=== PATIENT | male | born 1945 | race Caucasian/White ===

== ENCOUNTER 2016-09-29 17:37 | Emergency (ER) | payer OTHER ==
[~2016-09-29] VITALS: Ht 172.7 cm; Wt 75.0 kg
[2016-09-29 17:38] VITALS: BP 212/93; PULSE 84; RESP 20; TEMP 98.2; O2SAT 98
--- NOTE | 2016-09-29 17:45 | PD ---
Physical Exam Date Seen by Provider: Sep 29, 2016 Time Seen by Provider: 17:43 Narrative 71 yo male here for lower back pain. Progressively worst. Today is the worst. Has had it for "forever". Cannot ambulate now without worsening pain. No recent injury. pain is 10/10. Vitals are stable in triage. Awaiting bed placement. Data Data Last Documented VS Vital Signs Date Time Temp Pulse Resp B/P Pulse Ox O2 Delivery O2 Flow Rate FiO2 09/29/16 17:38 98.2 84 20 212/93 98 Room Air [facility] Medical Record Reviewed: Yes Supervised Visit with CLEVE: No Tobi Moore Sep 29, 2016 17:44
[2016-09-29 17:57] VITALS: BP 199/90; PULSE 78; RESP 20; O2SAT 98
[2016-09-29] MEDS ORDERED: PRIN20TA2 PO (17:57)
[2016-09-29] MEDS ORDERED: AMLO10TA2 PO (17:57)
[2016-09-29] MEDS ORDERED: DOCU100C PO (17:57)
[2016-09-29] MEDS ORDERED: MELO-1 PO (17:57)
[2016-09-29] MEDS ORDERED: HYDR25TA5 PO (17:57)
[2016-09-29] MEDS ORDERED: SERT-129 PO (17:57)
[2016-09-29] MEDS ORDERED: TRAM50TA PO (17:57)
[2016-09-29] MEDS ORDERED: ASPI81CH CHEW (17:57)
[2016-09-29] MEDS ORDERED: TRAZ100T6 PO (17:57)
[2016-09-29] MEDS ORDERED: HYDR-3516 PO (17:57)
[2016-09-29] MEDS ORDERED: PRAV40TA2 PO (17:57)
[2016-09-29] MEDS ORDERED: BACL10TA PO (17:57)
[2016-09-29] MEDS ORDERED: cloNIDine HCL 0.2 MG TAB PO ONE (18:00)
[2016-09-29] MEDS ORDERED: KETOROLAC TROMETHAMINE 60 MG/2 ML (IM) VIAL IM ONE (18:00)
[2016-09-29] MEDS ORDERED: ONDANSETRON HCL 4 MG/2 ML VIAL IM ONE (18:00)
[2016-09-29] MEDS ORDERED: MORPHINE SULFATE 4 MG/ML INJ IM ONE (18:00)
--- NOTE | 2016-09-29 18:23 | PD ---
HPI Chief Complaint: Back/ Neck Pain or Injury Time Seen by Provider: 17:49 Travel History International Travel<30 days: No Contact w/Intl Traveler<30days: No Traveled to known affect area: No History of Present Illness HPI This patient complains of back pain. Had chronic back pain for years. He takes hydrocodone amongst other things for the back. No acute injury. Back has been hurting more than usual. He is extremely vague and difficult historian. No fever. No urinary complaints or neurologic complaints. No sciatic radiation. Symptoms severity is moderate. He has not been taking his antihypertensives. Blood pressure 212 systolic. Pain medicine partially relieves his symptoms. PFSH Past Medical History Medical History: Denies Significant Hx Immunizations Current: Yes Tetanus Vaccination: > 5 Years Influenza Vaccination: Yes Past Surgical History Appendectomy: Yes Other Surgery: Yes (penile implant) Social History Alcohol Use: No Tobacco Use: No Substance Use: No Allergies-Medications (Allergen,Severity, Reaction): Coded Allergies: No Known Allergies (Unverified , 09/29/16) Reported Meds & Prescriptions Reported Meds & Active Scripts Active Reported Hydrocodone-Acetaminophen 5-325 mg Tab 1 Tab PO Q6H PRN Tramadol (Tramadol HCl) 50 Mg Tab 50 Mg PO Q8H PRN Hydrochlorothiazide 25 Mg Tab 25 Mg PO DAILY Trazodone (Trazodone HCl) 100 Mg Tablet 100 Mg PO HS Amlodipine (Amlodipine Besylate) 10 Mg Tab 10 Mg PO DAILY Prinivil (Lisinopril) 20 Mg Tab 40 Mg PO DAILY Pravastatin 40 Mg Tab 40 Mg PO DAILY Docusate Sodium 100 Mg Cap 100 Mg PO BID Aspirin 81 Mg Chew 81 Mg CHEW DAILY Sertraline (Sertraline HCl) 100 Mg Tab 100 Mg PO DAILY Meloxicam 15 Mg Tab 15 Mg PO DAILY Baclofen 10 Mg Tab 10 Mg PO TID Review of Systems General / Constitutional: No: Fever Eyes: No: Visual changes HENT: No: Headaches Cardiovascular: No: Chest Pain or Discomfort Respiratory: No: Shortness of Breath Gastrointestinal: No: Abdominal Pain Genitourinary: No: Dysuria Musculoskeletal: Positive: Pain Skin: No Rash Neurologic: No: Weakness Psychiatric: No: Depression Endocrine: No: Polydipsia Hematologic/Lymphatic: No: Easy Bruising Physical Exam Narrative GENERAL: Well-nourished, well-developed patient in no apparent distress. SKIN: Focused skin assessment reveals no rash and nodules. Skin is Warm and dry. HEAD: Atraumatic. Normocephalic. EYES: Pupils equal and round. No scleral icterus. No injection or drainage. ENT: No nasal bleeding or discharge. Mucous membranes pink and moist. NECK: Trachea midline. No JVD. CARDIOVASCULAR: Regular rate and rhythm. No murmur appreciated. RESPIRATORY: No accessory muscle use. Clear to auscultation. Breath sounds equal bilaterally. GASTROINTESTINAL: Abdomen soft, non-tender, nondistended. Hepatic and splenic margins not palpable. MUSCULOSKELETAL: No obvious deformities. No clubbing. No cyanosis. No edema. Back exam shows no midline tenderness NEUROLOGICAL: Awake and alert. No obvious cranial nerve deficits. Motor grossly within normal limits. Normal speech. PSYCHIATRIC: Appropriate mood and affect; insight and judgment seems a bit weak . Data Data Last Documented VS Vital Signs Date Time Temp Pulse Resp B/P Pulse Ox O2 Delivery O2 Flow Rate FiO2 09/29/16 19:27 78 20 162/72 98 Room Air 09/29/16 17:38 98.2 Orders Ondansetron Inj (Zofran Inj) (09/29/16 18:00) Ketorolac Inj (Toradol Inj) (09/29/16 18:00) Morphine Inj (Morphine Inj) (09/29/16 18:00) Ct Abd/Pel W/O Iv Contrast (09/29/16 ) Clonidine (Catapres) (09/29/16 18:00) MDM Medical Decision Making Medical Screen Exam Complete: Yes Emergency Medical Condition: Yes Medical Record Reviewed: Yes Differential Diagnosis Exacerbation of chronic back pain, sciatica, disc herniation, AAA Narrative Course I have reviewed the patient's electronic medical record. Patient is neurologically intact. There is no red flags for emergent spine imaging given his presentation but I did order CT of abdomen and pelvis shows no significant AAA. He is a very vague and challenging historian so it's hard to pin down what exactly is going on. It sounds most like a flare of chronic back pain. He's had multiple injections into the back for this from pain management. He denies running out of his pain medicine. CT of abdomen and pelvis shows no aneurysm or stone I gave him a dose of clonidine for accelerated hypertension. Blood pressure now 162/72 on recheck Gave him injection of morphine and Zofran and Toradol He feels improved. He should follow-up with primary care Diagnosis Primary Impression: Back pain at L4-L5 level Additional Impression: Accelerated hypertension Additional Instructions: The patient was advised to follow up with their physician and return if they worsen. Check and record blood pressure daily Be compliant with blood pressure medication Med/Other Pt SpecificInfo: Other Disposition: 01 DISCHARGE HOME Condition: Stable Binh Stout MD Sep 29, 2016 18:23
--- NOTE | 2016-09-29 18:40 | RADRPT ---
EXAM DATE/TIME: 09/29/2016 18:24 [place] COMPARISON: No previous studies available for comparison. INDICATIONS : low back pain past several years. ORAL CONTRAST: No oral contrast ingested. RADIATION DOSE: 7.44 CTDIvol (mGy) MEDICAL HISTORY : None SURGICAL HISTORY : Appendectomy. Penile implant. ENCOUNTER: Initial ACUITY: >1 yr PAIN SCALE: 10/10 LOCATION: low back TECHNIQUE: Volumetric scanning of the abdomen and pelvis was performed. Using automated exposure control and ad justment of the mA and/or kV according to patient size, radiation dose was kept as low as reasonably achievable to obtain optimal diagnostic quality images. DICOM format image data is available electro nically for review and comparison. FINDINGS: LOWER LUNGS: The visualized lower lungs are clear. LIVER: Homogeneous density without lesion. There is no dilation of the biliary tree. No calcified gallston es. SPLEEN: Normal size without lesion. PANCREAS: Within normal limits. KIDNEYS: Normal in size and shape. There is no mass, stone, or hydronephrosis. ADRENAL GLANDS: Within normal limits. VASCULAR: There is no aortic aneurysm. Mild atherosclerotic changes present. BOWEL/MESENTERY: The stomach, small bowel, and colon demonstrate no acute abnormality. There is no free intraperitone al air or fluid. A penile reservoir is noted in the left anterior pelvis. ABDOMINAL WALL: Within normal limits. There are postsurgical changes along the right lateral abdominal wall musculatu re with multiple clips and celeste. There are surgical clips in the lower pelvis. RETROPERITONEUM: There is no lymphadenopathy. BLADDER: No wall thickening or mass. REPRODUCTIVE: Within normal limits. INGUINAL: There is no lymphadenopathy or hernia. MUSCULOSKELETAL: Within normal limits for patient age. CONCLUSION: 1. No renal calculi or obstruction. 2. Postsurgical changes with no definite obstruction or inflammatory change. 3. Mild atherosclerotic change in the aorta with no aneurysm. Bill Dacosta MD on September 29, 2016 at 18:33 Board Certified Radiologist. This report was verified electronically.
[2016-09-29 19:27] VITALS: BP 162/72; PULSE 78; RESP 20; O2SAT 98
== END 2016-09-29 20:03 | disposition home or self-care (01) ==
LOC: NEPD 17:37
DX: M54.5 Low back pain (principal); I10 Essential (primary) hypertension; Z79.899 Other long term (current) drug therapy; Z79.82 Long term (current) use of aspirin
CPT/HCPCS: 74176; 96372; 99285; J1885; J2270; J2405

== ENCOUNTER 2018-01-01 13:50 | Inpatient (IN) ==
[2018-01-01] MEDS ORDERED: Sod Chloride 0.9% Inj 1,000 ML IV.SIG ONE ×2 (13:52→19:00)
--- NOTE | 2018-01-01 13:59 | ED ---
HPI General Chief complaint: Nausea/Vomiting/Diarrhea Stated complaint: Medical Time Seen by Provider: 01/01/18 13:52 Source: patient, EMS and RN notes reviewed Mode of arrival: EMS Limitations: altered mental status History of Present Illness HPI narrative: 72yM brought in by EMS for weakness. The patient was apparently so weak he was unable to get out of bed so he called 911; he was found to be febrile to 101F and confused on their arrival. The patient vomited twice while en route but is unable to provide further meaningful contribution to HPI secondary to AMS. Related Data Home Medications Medication Instructions Recorded Confirmed acetaminophen [Tylenol] 650 mg PO TID 01/01/18 01/01/18 amlodipine 10 mg PO DAILY 01/01/18 01/01/18 aspirin 81 mg PO DAILY 01/01/18 01/01/18 atorvastatin [Lipitor] 40 mg PO HS 01/01/18 01/01/18 baclofen 30 mg PO TID 01/01/18 01/01/18 bupropion HCl 75 mg PO DAILY 01/01/18 01/01/18 clonidine HCl [Catapres] 0.4 mg PO DAILY 01/01/18 01/01/18 cyanocobalamin (vitamin B-12) 1,000 mcg PO DAILY 01/01/18 01/01/18 docusate sodium [Colace] 100 mg PO BID 01/01/18 01/01/18 donepezil [Aricept] 5 mg PO HS 01/01/18 01/01/18 ferrous sulfate 648 mg PO 4XW 01/01/18 01/01/18 gabapentin 300 mg PO DAILY 01/01/18 01/01/18 hydrochlorothiazide 25 mg PO DAILY 01/01/18 01/01/18 lisinopril 40 mg PO DAILY 01/01/18 01/01/18 meloxicam [Mobic] 15 mg PO DAILY 01/01/18 01/01/18 omega 5-pdi-ihp-fish oil [Fish Oil] 2,000 mg PO BID 01/01/18 01/01/18 sertraline [Zoloft] 100 mg PO DAILY 01/01/18 01/01/18 trazodone 150 mg PO HS 01/01/18 01/01/18 Allergies Allergy/AdvReac Type Severity Reaction Status Date / Time No Known Allergies Allergy Verified 01/01/18 14:22 Review of Systems ROS: all other systems reviewed are negative PMFSH History History Provided By: Patient Medical History Medical History HTN (hypertension) (Acute) High cholesterol (Acute) Surgical History Surgical History History of cataract surgery (Acute) Social History Social History Substance History: No History of Abuse Second Hand Smoke Exposure: No Smoking Status: Former smoker How Often Do You Have a Drink Containing Alcohol: Never Recent Travel in [facility] within the Last 8 Weeks: No Recent Out of Country Travel within the Last 8 Weeks: No Exam Const General: ill appearing [facility] Head: normocephalic and atraumatic Face and sinus: normal facial exam Eyes General: appearance normal, both eyes and all related structures Pupils: PERRL Chest Chest: normal inspection of the chest Resp Other: Diminished breath sounds at bases bilaterally Cardio Rate: regular rate Rhythm: regular rhythm GI Other: Soft, mildly distended, non-tender in all quadrants Skin General: no rashes or lesions noted Neuro Other: Awake, oriented to person and place but not time Moving all extremities Pupils 3 mm and reactive bilaterally Psych Affect: normal affect Course Initial Documented Vital Signs Pulse Oximetry 95 01/01/18 13:52 Last Documented Vital Signs Temperature 102.2 F H 01/01/18 18:00 Pulse Rate 78 01/01/18 18:00 Respiratory Rate 15 01/01/18 18:00 Blood Pressure 194/86 H 01/01/18 17:00 Pulse Oximetry 95 01/01/18 18:00 Medical Decision Making [facility] Narrative Medical decision making narrative: Assessment: 72yM presenting with altered mental status, confusion, fever Plan: EKG and monitor IV fluids Sepsis workup, including lactate and cultures CXR CTH UA Addendum: Patient's arrived in the ED during his workup, says that he "hasn 't been feeling well" x several days and this morning was very confused and unable to get out of bed. The patient was found to have pyelonephritis/ urosepsis complicated by a 2 mm obstructing left-sided kidney stone. I explained these results to the patient's as well as plan to keep him in the hospital for IV fluids/ antibiotics/ consultation. Case discussed with Dr. Lyles of [facility] and with Dr. Garcia of urology, who recommends starting Flomax and says the stone is small enough to pass on its own. Medical Screen Exam Complete: Yes Emergency Medical Condition: Yes Differential Diagnosis Differential Diagnosis: Differential diagnosis includes, but is not limited to: pneumonia, UTI, dehydration, electrolyte abnormality, arrhythmia, DKA, ICH, ACS Medical Records Medical records reviewed: Yes I reviewed the patient's medical records. Lab Data Lab results reviewed: Yes I reviewed the patient's lab results. Result diagrams: 01/01/18 14:00 01/01/18 15:28 Lab Results 01/01/18 01/01/18 01/01/18 Range/Units 14:00 14:00 14:05 WBC 10.8 (4.0-11.0) th/mm3 RBC 4.81 (4.50-5.90) mil/mm3 Hgb 14.1 (13.0-17.0) gm/dL Hct 41.2 (39.0-51.0) % MCV 85.5 (80.0-100.0) fL MCH 29.2 (27.0-34.0) pg MCHC 34.2 (32.0-36.0) % RDW 13.8 (11.6-17.2) % Plt Count 110 L (150-450) th/mm3 MPV 7.8 (7.0-11.0) fL Neut % (Auto) 88.3 H (16.0-70.0) % Lymph % (Auto) 4.5 L (9.0-44.0) % [place] % (Auto) 6.1 (0.0-8.0) % Eos % (Auto) 0.0 (0.0-4.0) % Baso % (Auto) 1.1 (0.0-2.0) % Neut # (Auto) 9.6 H (1.8-7.7) th/mm3 Lymph # (Auto) 0.5 L (1.0-4.8) th/mm3 [place] # (Auto) 0.7 (0.0-0.9) th/mm3 Eos # (Auto) 0.0 (0.0-0.4) th/mm3 Baso # (Auto) 0.1 (0.0-0.2) th/mm3 WBC Differential . Differential Comment Auto diff final PT 11.7 H (9.8-11.6) sec INR 1.2 Ratio APTT 26.4 (24.3-30.1) sec Sodium (136-145) meq/L Potassium (3.5-5.1) meq/L Chloride (98-107) meq/L Carbon Dioxide (21.0-32.0) meq/L Anion Gap (5-15) meq/L BUN (7-18) mg/dL Creatinine (0.60-1.30) mg/dL Estimated GFR (>89) mL/min Random Glucose (74-106) mg/dL Lactic Acid 1.8 (0.4-2.0) mmol/L Calcium (8.5-10.1) mg/dL Phosphorus (2.5-4.9) mg/dL Magnesium (1.5-2.5) mg/dL Total Bilirubin (0.2-1.0) mg/dL AST (15-37) U/L ALT (12-78) U/L Alkaline Phosphatase (45-117) U/L Total Creatine Kinase (39-308) U/L CK-MB (CK-2) (0.5-3.6) ng/mL Troponin I (0.02-0.05) ng/mL Total Protein (6.4-8.2) g/dL Albumin (3.4-5.0) g/dL Lipase (73-393) U/L Urine Color (Yellw/Straw) Urine Clarity (Clear) Urine pH (5.0-8.5) Ur Specific [place] (1.002-1.035) Urine Protein (Neg-Trace) mg/dL Urine Glucose (UA) (Negative) mg/dL Urine Ketones (Negative) mg/dL Urine Occult Blood (Negative) Urine Nitrate (Negative) Urine Bilirubin (Negative) Urine Urobilinogen (Less than 2) mg/dL Ur Leukocyte Esterase (Negative) Urine RBC (0-3) /hpf Urine WBC (0-5) /hpf Ur Squamous Epith Cells (0-5) /hpf Amorphous Sediment (None) /hpf Urine Bacteria (None) /hpf Urine Mucus (Occasional) /lpf Micro UA Comment Ur Microscopic Review Urine Culture Comments 01/01/18 01/01/18 Range/Units 15:28 18:20 WBC (4.0-11.0) th/mm3 RBC (4.50-5.90) mil/mm3 Hgb (13.0-17.0) gm/dL Hct (39.0-51.0) % MCV (80.0-100.0) fL MCH (27.0-34.0) pg MCHC (32.0-36.0) % RDW (11.6-17.2) % Plt Count (150-450) th/mm3 MPV (7.0-11.0) fL Neut % (Auto) (16.0-70.0) % Lymph % (Auto) (9.0-44.0) % [place] % (Auto) (0.0-8.0) % Eos % (Auto) (0.0-4.0) % Baso % (Auto) (0.0-2.0) % Neut # (Auto) (1.8-7.7) th/mm3 Lymph # (Auto) (1.0-4.8) th/mm3 [place] # (Auto) (0.0-0.9) th/mm3 Eos # (Auto) (0.0-0.4) th/mm3 Baso # (Auto) (0.0-0.2) th/mm3 WBC Differential Differential Comment PT (9.8-11.6) sec INR Ratio APTT (24.3-30.1) sec Sodium 138 (136-145) meq/L Potassium 3.2 L (3.5-5.1) meq/L Chloride 101 (98-107) meq/L Carbon Dioxide 27.1 (21.0-32.0) meq/L Anion Gap 10 (5-15) meq/L BUN 12 (7-18) mg/dL Creatinine 1.29 (0.60-1.30) mg/dL Estimated GFR 55 L (>89) mL/min Random Glucose 122 H (74-106) mg/dL Lactic Acid (0.4-2.0) mmol/L Calcium 7.8 L (8.5-10.1) mg/dL Phosphorus 1.9 L (2.5-4.9) mg/dL Magnesium 1.7 (1.5-2.5) mg/dL Total Bilirubin 1.1 H (0.2-1.0) mg/dL AST 16 (15-37) U/L ALT 19 (12-78) U/L Alkaline Phosphatase 76 (45-117) U/L Total Creatine Kinase 227 (39-308) U/L CK-MB (CK-2) 1.3 (0.5-3.6) ng/mL Troponin I 0.02 (0.02-0.05) ng/mL Total Protein 7.0 (6.4-8.2) g/dL Albumin 3.1 L (3.4-5.0) g/dL Lipase 54 L (73-393) U/L Urine Color Yellow (Yellw/Straw) Urine Clarity Hazy H (Clear) Urine pH 7.0 (5.0-8.5) Ur Specific [place] 1.008 (1.002-1.035) Urine Protein 30 H (Neg-Trace) mg/dL Urine Glucose (UA) Negative (Negative) mg/dL Urine Ketones Negative (Negative) mg/dL Urine Occult Blood Moderate H (Negative) Urine Nitrate Negative (Negative) Urine Bilirubin Negative (Negative) Urine Urobilinogen Less than 2 (Less than 2) mg/dL Ur Leukocyte Esterase Large H (Negative) Urine RBC 4 H (0-3) /hpf Urine WBC 44 H (0-5) /hpf Ur Squamous Epith Cells 1 (0-5) /hpf Amorphous Sediment Rare H (None) /hpf Urine Bacteria Rare H (None) /hpf Urine Mucus Few H (Occasional) /lpf Micro UA Comment Culture indicated Ur Microscopic Review Not Reportable Urine Culture Comments Culture indicated Imaging Data Radiologist's impression: Chest X-Ray 01/01/18 13:52 CONCLUSION: No acute cardiopulmonary findings. Head CT 01/01/18 13:59 CONCLUSION: 1. Negative CT Head non contrast. . Abdomen/Pelvis CT 01/01/18 16:19 CONCLUSION: 1. 2 mm distal left ureteral calculus approximately 1 cm above the ureterovesicular junction with moderate hydronephrosis and hydroureter. 2. There are no renal calculi. ECG Data Attestation: I personally reviewed and interpreted this ECG as follows: Interpretation: Rate: 75 BPM Rhythm: Sinus [place]: Left Intervals: Complete LBBB, QTc 460 ms Q waves: II, III, aVF, V2-V3 T waves: Inverted in aVL ST segments: No significant elevations or depressions Impression: LBBB, no previous EKG available for comparison. Discharge Plan Physicians Team ED Provider: Maya Evangelista Primary Care Provider: Julieta Sims Rxs /Orders / Referrals /Forms Prescriptions: No Action atorvastatin [Lipitor] 80 mg Tablet 40 mg PO HS RF: 0 acetaminophen [Tylenol] 325 mg Tablet 650 mg PO TID RF: 0 meloxicam [Mobic] 15 mg Tablet 15 mg PO DAILY RF: 0 sertraline [Zoloft] 100 mg Tablet 100 mg PO DAILY RF: 0 cyanocobalamin (vitamin B-12) 1,000 mcg Tablet 1,000 mcg PO DAILY RF: 0 aspirin 81 mg Tablet,Delayed Release (Dr/Ec) 81 mg PO DAILY RF: 0 clonidine HCl [Catapres] 0.2 mg Tablet 0.4 mg PO DAILY RF: 0 trazodone 100 mg Tablet 150 mg PO HS RF: 0 baclofen 10 mg Tablet 30 mg PO TID RF: 0 amlodipine 10 mg Tablet 10 mg PO DAILY RF: 0 bupropion HCl 75 mg Tablet 75 mg PO DAILY RF: 0 docusate sodium [Colace] 100 mg Capsule 100 mg PO BID RF: 0 gabapentin 300 mg Capsule 300 mg PO DAILY RF: 0 hydrochlorothiazide 25 mg Tablet 25 mg PO DAILY RF: 0 lisinopril 40 mg Tablet 40 mg PO DAILY RF: 0 ferrous sulfate 324 mg (65 mg iron) Tablet,Delayed Release (Dr/Ec) 648 mg PO 4XW RF: 0 omega 0-eqa-hxi-fish oil [Fish Oil] 1,000 mg (120 mg-180 mg) Capsule 2,000 mg PO BID RF: 0 donepezil [Aricept] 5 mg Tablet 5 mg PO HS RF: 0 Discharge Interventions Interventions: Vital Signs Last Done: 01/01/18 18:00 Status ED Status: With Doctor
[2018-01-01 14:39] LABS: Baso # (Auto) 0.1 th/mm3 (0.0-0.2); Baso % (Auto) 1.1 % (0.0-2.0); Hematocrit 41.2 % (39.0-51.0); Hemoglobin 14.1 gm/dL (13.0-17.0); Lymph # (Auto) 0.5 th/mm3 (1.0-4.8); Lymph % (Auto) 4.5 % (9.0-44.0); Mean Corpuscular HGB Conc 34.2 % (32.0-36.0); Mean Corpuscular Hemoglobin 29.2 pg (27.0-34.0); Mean Corpuscular Volume 85.5 fL (80.0-100.0); Mean Platelet Volume 7.8 fL (7.0-11.0); Mono # (Auto) 0.7 th/mm3 (0.0-0.9); Mono % (Auto) 6.1 % (0.0-8.0); Neut # (Auto) 9.6 th/mm3 (1.8-7.7); Neut % (Auto) 88.3 % (16.0-70.0); Platelet Count 110 th/mm3 (150-450); Red Blood Count 4.81 mil/mm3 (4.50-5.90); Red Cell Distribution Width 13.8 % (11.6-17.2); White Blood Count 10.8 th/mm3 (4.0-11.0)
[2018-01-01] MEDS: Acetaminophen 325 MG Tablet PO ONE ×2 (14:47→18:07)
[2018-01-01 14:48] LABS: Activated Partial Thrombo Time 26.4 sec (24.3-30.1); INR 1.2 Ratio; Prothrombin Time 11.7 sec (9.8-11.6)
--- NOTE | 2018-01-01 15:14 | CT ---
EXAM DATE: 01/01/2018 2:04 PM EDT AGE/SEX: 72 years / Male INDICATIONS: Altered mental status. CLINICAL DATA: This is the patient's initial encounter. Patient reports that signs and symptoms have been present for 1 day and indicates a pain score of 0/10. MEDICAL/SURGICAL HISTORY: None. None. RADIATION DOSE: 66.37 CTDI (mGy) COMPARISON: No prior exams available for comparison. TECHNIQUE: CT of the head without contrast. Using automated exposure control and adjustment of the mA and/or kV according to patient size, radiation dose was kept as low as reasonably achievable to ob tain optimal diagnostic quality images. DICOM format image data is available electronically for revi ew and comparison. FINDINGS: Cerebrum: The ventricles are normal for age. No evidence of midline shift, mass lesion, hemorrhage or acute infarction. No extraaxial fluid collections are seen. Posterior Fossa: The cerebellum and brainstem are intact. The 4th ventricle is midline. The cerebe llopontine angle is unremarkable. Extracranial: The visualized portion of the orbits is intact. Skull: The calvaria is intact. No evidence of skull fracture. CONCLUSION: 1. Negative CT Head non contrast. . Electronically signed by: Ramsey Radford MD 01/01/2018 3:12 PM EDT
--- NOTE | 2018-01-01 15:25 | XR ---
EXAM DATE: 01/01/2018 1:52 PM EDT AGE/SEX: 72 years / Male INDICATIONS: Fever CLINICAL DATA: This is the patient's initial encounter. Patient reports that signs and symptoms have been present for 1 day and indicates a pain score of 0/10. MEDICAL/SURGICAL HISTORY: None. None. COMPARISON: No prior exams available for comparison. FINDINGS: A single AP view of the chest demonstrates the lungs to be symmetrically aerated without evidence of mass, infiltrate or effusion. The cardiomediastinal contours are unremarkable. Osseous structures a re intact. CONCLUSION: No acute cardiopulmonary findings. Electronically signed by: Ramsey Radford MD 01/01/2018 3:24 PM EDT
[2018-01-01 16:15] LABS: Alanine Aminotransferase 19 U/L (12-78); Albumin 3.1 g/dL (3.4-5.0); Anion Gap 10 meq/L (5-15); Aspartate Aminotransferase 16 U/L (15-37); Blood Urea Nitrogen 12 mg/dL (7-18); Calcium 7.8 mg/dL (8.5-10.1); Carbon Dioxide 27.1 meq/L (21.0-32.0); Chloride 101 meq/L (98-107); Glomerular Filtration Rate 55 mL/min (>89); Glucose,Random 122 mg/dL (74-106); Lipase 54 U/L (73-393); Magnesium 1.7 mg/dL (1.5-2.5); Phosphorus 1.9 mg/dL (2.5-4.9); Potassium 3.2 meq/L (3.5-5.1); Sodium 138 meq/L (136-145)
[2018-01-01 16:17] LABS: Alkaline Phosphatase 76 U/L (45-117); Creatine Kinase 227 U/L (39-308); Troponin I 0.02 ng/mL (0.02-0.05)
[2018-01-01] MEDS ORDERED: Potassium Phosphate 500 MG Soluble Tablet PO ONE (16:17)
[2018-01-01 16:30] LABS: Creatine Kinase MB 1.3 ng/mL (0.5-3.6)
--- NOTE | 2018-01-01 18:17 | CT ---
EXAM DATE: 01/01/2018 4:31 PM EDT AGE/SEX: 72 years / Male INDICATIONS: Weakness, tremors and nausea starting yesterday. CLINICAL DATA: This is the patient's initial encounter. Patient reports that signs and symptoms have been present for 1 day and indicates a pain score of 6/10. MEDICAL/SURGICAL HISTORY: Hypertension. None. RADIATION DOSE: 10.46 CTDI (mGy) COMPARISON: [facility] [place]BD[place] & [place]ELVIS W/O CONTRAST, 09/29/2016. . TECHNIQUE: Multiple contiguous axial images were obtained through the abdomen. Images were obtained using multiple row detector helical technique. Using automated exposure control and adjustment of the mA and/or kV according to patient size, radiation dose was kept as low as reasonably achievable to o btain optimal diagnostic quality images. DICOM format image data is available electronically for rev iew and comparison. FINDINGS: Lower Lungs: The visualized lower lungs are clear. Liver: The liver has a homogeneous density without space-occupying lesion. There is no dilation of th e biliary tree. The gallbladder is unremarkable in appearance. Spleen: Homogeneous density without enlargement. Pancreas: Unremarkable without mass or calcification. Kidneys: The right kidney is unremarkable in appearance. The left kidney is prominent in size with m ild surrounding inflammatory change and moderate hydronephrosis. There is dilatation of the left uret er down to the pelvis to a small 2 mm distal calculus located approximately 1 cm above the ureteroves icular junction. This is best seen on axial image #79. Adrenal Glands: Unremarkable. Aorta: The aorta and proximal iliac vessels are grossly unremarkable without aneurysmal dilation. Bowel/Mesentery: The bowel loops are grossly unremarkable. The cecum and sigmoid colon have a normal configuration. Abdominal Wall: Intact. Retroperitoneum: No evidence of adenopathy in the retrocrural, para-aortic, or deep pelvic regions. Bladder: Contours are smooth. Reproductive Organs: A penile prosthesis and reservoir present. There are surgical changes right cathryn e of the pelvis. Inguinal: The inguinal region is unremarkable without evidence of adenopathy. Bony Structures: Unremarkable. CONCLUSION: 1. 2 mm distal left ureteral calculus approximately 1 cm above the ureterovesicular junction with mo derate hydronephrosis and hydroureter. 2. There are no renal calculi. Electronically signed by: Bill Dacosta MD 01/01/2018 6:15 PM EDT
[2018-01-01] MEDS ORDERED: Piperacil/Tazo 3.375 GM Premix 50 ML IV.SIG ONE (18:19)
[2018-01-01] MEDS ORDERED: Vancomycin Inj 1 GM/200 ML PIGGYBACK IV.SIG ONE (18:19)
[2018-01-01 18:40] LABS: Amorphous Sediment,Urine Rare /hpf; Bacteria,Urine Rare /hpf; Bilirubin,Urine Negative (Negative); Clarity,Urine Hazy (Clear); Color,Urine Yellow (Yellw/Straw); Glucose,Urine (UA) Negative (Negative); Leukocyte Esterase,Urine Large (Negative); Mucus,Urine Few /lpf (Occasional); Nitrite,Urine Negative (Negative); Specific Gravity,Urine 1.008 (1.002-1.035); Squamous Epithelial Cell,Urine 1 /hpf (0-5)
[2018-01-01] MEDS ORDERED: Vancomycin Inj 1,000 MG in Sodium Chlor 0.9% Inj 250 ML IV.SIG ONE (19:00)
[2018-01-01] MEDS ORDERED: Sodium Chlor 0.9% Inj 500 ML IV.SIG ONE (19:00)
[2018-01-01] MEDS ORDERED: Morphine Sulfate Inj 2 MG/ML Vial IV.PUSH PRN (19:04)
--- NOTE | 2018-01-01 19:07 | P.HPIM ---
History of Present Illness Primary Care Physician: Julieta Sims MD History of Present Illness: This is a 80-year-old male with a PMH of Prostate CA, HTN and Hyperlipidemia was brought to the ER by EMS for AMS and fever. Family at bedside report pt had fever 101 in addition to intense rigors and episode of confusion. Also reports c/o severe left flank pain, 10/10, non-radiating, associated w/ nausea/ vomiting. Per family, mental status now back to baseline. On arrival, BP 182/ 79, HR 79, O2 sat 95% on RA, Afebrile. CBC unremarkable except for platelets 110, no previous labs for comparison. INR 1.2. Chemistry essentially unremarkable except for K+ 3.2. UA positive for UTI. CT Head negative. CXR negative. CT Abdomen/Pelvis 2 mm distal left ureteral calculus with moderate hydronephrosis and hydroureter. Dr. Garcia consulted by ER physician, recommended Flomax, no intervention as stone likely to pass on its own. S/p Vanc/Zosyn in ER. Family notes pt has had hematuria for "several months", referred to Urology by the [place], has upcoming appt on 01/11/18. - Diagnosis (1) UTI (urinary tract infection) (2) Renal stone (3) Thrombocytopenia Review of Systems PAST FAMILY HISTORY: Reviewed. No h/o DM or CAD All other systems reviewed negative except as stated in HPI PMFSH - History History Provided By: Patient - Medical History Medical History: Medical History (Last Updated 01/01/18 @ 14:16 by [employer]) HTN (hypertension) High cholesterol - Surgical History Surgical History: Surgical History (Last Updated 01/01/18 @ 14:16 by [employer]) History of cataract surgery - Tobacco History Second Hand Smoke Exposure: No Tobacco Use In Past 30 Days: No Smoking Status: Former smoker - Alcohol History How Often Do You Have a Drink Containing Alcohol: Never - Substance Use History Substance History: No History of Abuse - Travel History Recent Travel in the [place] Within the Last 8 Weeks: No Recent Travel Out of the Country Within the Last 8 Weeks: No - Immunization History Tetanus Immunization: >5 Years Hx Influenza Vaccine This Season: No Medications and Allergies Active Medications: Active Medications Atorvastatin Calcium (Lipitor) 40 mg PO HS [facility] Baclofen (Lioresal) 30 mg PO TID [facility] Bupropion HCl (Wellbutrin) 75 mg PO DAILY [facility] Clonidine HCl (Catapres) 0.4 mg PO DAILY [facility] Donepezil HCl (Aricept) 5 mg PO HS [facility] Gabapentin (Neurontin) 300 mg PO DAILY [facility] Vancomycin HCl 1,000 mg/ (Sodium Chloride) 250 mls @ 250 mls/hr IV.SIG ONCE ONE Stop: 01/01/18 19:59 Ceftriaxone Sodium 1,000 mg/ (Sodium Chloride) 100 mls @ 200 mls/hr IV.SIG Q24H [facility] Morphine Sulfate (Morphine Inj) 2 mg IV.PUSH Q4H PRN PRN Reason: PAIN 6-10 Tamsulosin HCl (Flomax) 0.4 mg PO DAILY [facility] Allergies Allergy/AdvReac Type Severity Reaction Status Date / Time No Known Allergies Allergy Verified 01/01/18 14:22 Home Medications Medication Instructions Recorded Confirmed Type acetaminophen [Tylenol] 650 mg PO TID 01/01/18 01/01/18 History amlodipine 10 mg PO DAILY 01/01/18 01/01/18 History aspirin 81 mg PO DAILY 01/01/18 01/01/18 History atorvastatin [Lipitor] 40 mg PO HS 01/01/18 01/01/18 History baclofen 30 mg PO TID 01/01/18 01/01/18 History bupropion HCl 75 mg PO DAILY 01/01/18 01/01/18 History clonidine HCl [Catapres] 0.4 mg PO DAILY 01/01/18 01/01/18 History cyanocobalamin (vitamin B-12) 1,000 mcg PO DAILY 01/01/18 01/01/18 History docusate sodium [Colace] 100 mg PO BID 01/01/18 01/01/18 History donepezil [Aricept] 5 mg PO HS 01/01/18 01/01/18 History ferrous sulfate 648 mg PO 4XW 01/01/18 01/01/18 History gabapentin 300 mg PO DAILY 01/01/18 01/01/18 History hydrochlorothiazide 25 mg PO DAILY 01/01/18 01/01/18 History lisinopril 40 mg PO DAILY 01/01/18 01/01/18 History meloxicam [Mobic] 15 mg PO DAILY 01/01/18 01/01/18 History omega 6-rbk-ljn-fish oil [Fish Oil] 2,000 mg PO BID 01/01/18 01/01/18 History sertraline [Zoloft] 100 mg PO DAILY 01/01/18 01/01/18 History trazodone 150 mg PO HS 01/01/18 01/01/18 History Exam Vital signs: Vital Signs 01/01/18 13:52 01/01/18 13:54 01/01/18 15:00 Temperature 98.8 F Pulse Rate 79 78 Respiratory Rate 23 15 Blood Pressure 182/79 H 183/77 H Pulse Oximetry 95 95 96 01/01/18 17:00 01/01/18 18:00 Temperature 102.2 F H Pulse Rate 78 78 Respiratory Rate 15 15 Blood Pressure 194/86 H Pulse Oximetry 96 95 Intake & Output 01/01/18 01/01/18 01/02/18 06:59 18:59 06:59 Intake Total 1000 / 1000 Balance 1000 / 1000 Weight 77.111 kg Intake: IV 1000 / 1000 NS Inj 1,000 ML @ Wide Open IV. 1000 / 1000 SIG BOLUS ONE Rx#:[id number] Narrative: PE: GENERAL: Pleasant middle-aged white male in mild distress due to intermittent complaints of pain. Family at bedside. SKIN: Focused skin assessment warm and dry. HEENT: PERRLA, EOMI. No scleral icterus or conjunctival pallor. No lid lag or facial droop. CARDIOVASCULAR: Regular rate and rhythm. No obvious murmurs to auscultation. No chest tenderness to palpation. RESPIRATORY: No obvious rhonchi or wheezing. Clear to auscultation. Breath sounds equal bilaterally. GASTROINTESTINAL: Abdomen soft, left flank tenderness to palpation, nondistended. BS normal. MUSCULOSKELETAL: Extremities without clubbing, cyanosis, or edema. No obvious deformities. NEUROLOGICAL: Awake, alert and oriented x4. No focal neurologic deficits. Moving both upper and lower extremities spontaneously. PSYCHIATRIC: Appropriate mood and affect. Insight and judgment normal. Results - Labs CBC & Chem 7: 01/01/18 14:00 01/01/18 15:28 Labs: Short CBC 01/01/18 Range/Units 14:00 WBC 10.8 (4.0-11.0) th/mm3 Hgb 14.1 (13.0-17.0) gm/dL Hct 41.2 (39.0-51.0) % Plt Count 110 L (150-450) th/mm3 BMP 01/01/18 15:28 Sodium 138 Potassium 3.2 L Chloride 101 Carbon Dioxide 27.1 BUN 12 Creatinine 1.29 Calcium 7.8 L Cardiac Enzymes 01/01/18 Range/Units 15:28 Total Creatine Kinase 227 (39-308) U/L CK-MB (CK-2) 1.3 (0.5-3.6) ng/mL Troponin I 0.02 (0.02-0.05) ng/mL Liver Function 01/01/18 Range/Units 15:28 Total Bilirubin 1.1 H (0.2-1.0) mg/dL AST 16 (15-37) U/L ALT 19 (12-78) U/L Alkaline Phosphatase 76 (45-117) U/L Albumin 3.1 L (3.4-5.0) g/dL Urine 01/01/18 Range/Units 18:20 Urine Color Yellow (Yellw/Straw) Urine Clarity Hazy H (Clear) Urine pH 7.0 (5.0-8.5) Ur Specific [place] 1.008 (1.002-1.035) Urine Protein 30 H (Neg-Trace) mg/dL Urine Glucose (UA) Negative (Negative) mg/dL - Imaging Impressions Chest X-Ray 01/01/18 13:52 CONCLUSION: No acute cardiopulmonary findings. Head CT 01/01/18 13:59 CONCLUSION: 1. Negative CT Head non contrast. . Abdomen/Pelvis CT 01/01/18 16:19 CONCLUSION: 1. 2 mm distal left ureteral calculus approximately 1 cm above the ureterovesicular junction with moderate hydronephrosis and hydroureter. 2. There are no renal calculi. Caprini VTE Risk Assessment Caprini VTE Risk Assessment: No/Low Risk (score <= 1) Caprini Risk Assessment Model: Point Value = 1 Point Value = 2 Point Value = 3 Point Value = 5 Age 41-60 Minor surgery BMI > 25 kg/m2 Swollen legs Varicose veins or History of unexplained or recurrent spontaneous Oral contraceptives or hormone replacement Sepsis (< 1 month) Serious lung disease, including pneumonia (< 1 month) Abnormal pulmonary function Acute myocardial infarction Congestive heart failure (< 1 month) History of inflammatory bowel disease Medical patient at bed rest Age 61-74 Arthroscopic surgery Major open surgery (> 45 min) Laparoscopic surgery (> 45 min) Malignancy Confined to bed (> 72 hours) Immobilizing plaster cast Central venous access Age >= 75 History of VTE Family history of VTE Factor V Leiden Prothrombin [id number] Lupus anticoagulant Anticardiolipin antibodies Elevated serum homocysteine Heparin-induced thrombocytopenia Other congenital or acquired thrombophilia Stroke (< 1 month) Elective arthroplasty Hip, pelvis, or leg fracture Acute spinal cord injury (< 1 month) Prophylaxis Regimen: Total Risk Factor Score Risk Level Prophylaxis Regimen 0-1 Low Early ambulation 2 Moderate Order ONE of the following: *Sequential Compression Device (SCD) *Heparin 5000 units SQ BID 3-4 Higher Order ONE of the following medications: *Heparin 5000 units SQ TID *Enoxaparin/Lovenox 40 mg SQ daily (WT < 150 kg, CrCl > 30 mL/min) *Enoxaparin/Lovenox 30 mg SQ daily (WT < 150 kg, CrCl > 10-29 mL/min) *Enoxaparin/Lovenox 30 mg SQ BID (WT < 150 kg, CrCl > 30 mL/min) AND/OR *Sequential Compression Device (SCD) 5 or more Highest Order ONE of the following medications: *Heparin 5000 units SQ TID (Preferred with Epidurals) *Enoxaparin/Lovenox 40 mg SQ daily (WT < 150 kg, CrCl > 30 mL/min) *Enoxaparin/Lovenox 30 mg SQ daily (WT < 150 kg, CrCl > 10-29 mL/min) *Enoxaparin/Lovenox 30 mg SQ BID (WT < 150 kg, CrCl > 30 mL/min) AND *Sequential Compression Device (SCD) Assessment and Plan - Assessment (1) UTI (urinary tract infection) Code(s): N39.0 - Urinary tract infection, site not specified Status: Acute (2) Renal stone Code(s): N20.0 - Calculus of kidney Status: Acute (3) Thrombocytopenia Code(s): D69.6 - Thrombocytopenia, unspecified Status: Acute - Plan A/P: 1. UTI: U/a w/ UTI, +fever 102.2, continue w/ IV Abx, follow up cultures, IVF for hydration, monitor I/O. 2. Renal Stone: CT Abd/Pelvis w/ 2mm left ureteral calculus w/ moderate hydronephrosis and hydroureter, images reviewed. Dr. Garcia consulted, recommended Flomax, no intervention as stone likely to pass on its own. Pt has upcoming bobby w/ Urology at the [place] on 01/11/18, follow up w/ Urology as scheduled. Analgesics/antiemetics as needed. IVF for hydration. 3. Thrombocytopenia: Platelets 110, no previous labs for comparison, reports h /o long-standing hematuria, possibly due to thrombocytopenia, recommend outpatient follow up, monitor for bleeding, repeat labs in am. 4. DVT Prophylaxis: SCD/Teds 5. Social work for d/c planning as needed 6. Case discussed w/ ER physician at length, labs/records/imaging reviewed by me
[2018-01-01] MEDS: traZODone 50 MG Tablet PO SCH (21:14)
[2018-01-02] MEDS: Acetaminophen 325 MG Tablet PO PRN ×3 (01:30→17:09)
[2018-01-02] MEDS: Baclofen 10 MG Tablet PO SCH ×3 (09:05→18:53)
[2018-01-02] MEDS: Gabapentin 300 MG Capsule PO SCH (09:05)
[2018-01-02] MEDS: buPROPion 75 MG Tablet PO SCH (09:05)
[2018-01-02] MEDS: Sertraline 100 MG Tablet PO SCH (09:05)
--- NOTE | 2018-01-02 13:31 | P.CONURO ---
History of Present Illness Service: Urology Consult date: 01/02/18 Requesting Physician: Maya Evangelista Reason for Consult: obstructing ureteral stone Primary Care Provider: Julieta Sims MD Chief Complaint: left flank pain History of Present Illness: This is a 72-year-old male with a PMH of Prostate CA, HTN and Hyperlipidemia was brought to the ER by EMS for AMS and fever. Family reported pt had fever 101 in addition to intense rigors and episode of confusion. Also reports c/o severe left flank pain, 10/10, non-radiating, associated w/ nausea/vomiting. Per family, mental status now back to baseline. UC is positive for UTI. Final sensitivity is pending. He is on IV antbx. CT Abdomen/Pelvis 2 mm distal left ureteral calculus right at UVJ with moderate hydronephrosis and hydroureter. Dr. Garcia consulted by ER physician, recommended Flomax, no intervention as stone likely to pass on its own. Also Family notes pt has had hematuria for "several months", [facility], has upcoming appt on 01/11/18, it might be related to his stone Pt was seen by our service today at bedside, family is in the room. Pt is feeling better. pain is controlled no f/c/n/v but had fever 100 at AM. states that voids ok. Review of Systems All other systems reviewed negative except as stated in HPI PMFSH - History History Provided By: Patient, Family Member - Medical History Medical History: Medical History (Last Updated 01/01/18 @ 14:16 by [employer]) HTN (hypertension) High cholesterol - Surgical History Surgical History: Surgical History (Last Updated 01/01/18 @ 14:16 by [employer]) History of cataract surgery - Tobacco History Second Hand Smoke Exposure: No Tobacco Use In Past 30 Days: No Smoking Status: Former smoker Tobacco Type: Cigarettes - Alcohol History How Often Do You Have a Drink Containing Alcohol: Never - Substance Use History Substance History: No History of Abuse - Travel History Recent Travel in the [place] Within the Last 8 Weeks: No Recent Travel Out of the Country Within the Last 8 Weeks: No - Immunization History Tetanus Immunization: >5 Years Hx Influenza Vaccine This Season: No Medications and Allergies Active Medications: Active Medications Acetaminophen (Tylenol) 650 mg PO Q4H PRN PRN Reason: FEVER Last Admin: 10/01/18 11:03 Dose: 650 mg Atorvastatin Calcium (Lipitor) 40 mg PO HS [facility] Last Admin: 01/01/18 21:14 Dose: 40 mg Baclofen (Lioresal) 30 mg PO TID [facility] Last Admin: 01/02/18 12:05 Dose: 30 mg Bupropion HCl (Wellbutrin) 75 mg PO DAILY [facility] Last Admin: 01/02/18 09:05 Dose: 75 mg Clonidine HCl (Catapres) 0.4 mg PO DAILY [facility] Last Admin: 01/02/18 09:05 Dose: 0.4 mg Donepezil HCl (Aricept) 5 mg PO HS [facility] Last Admin: 01/01/18 21:14 Dose: 5 mg Gabapentin (Neurontin) 300 mg PO DAILY [facility] Last Admin: 01/02/18 09:05 Dose: 300 mg Ceftriaxone Sodium 1,000 mg/ (Sodium Chloride) 100 mls @ 200 mls/hr IV.SIG Q24H [facility] Morphine Sulfate (Morphine Inj) 2 mg IV.PUSH Q4H PRN PRN Reason: PAIN 6-10 Sertraline HCl (Zoloft) 100 mg PO DAILY [facility] Last Admin: 01/02/18 09:05 Dose: 100 mg Tamsulosin HCl (Flomax) 0.4 mg PO DAILY [facility] Last Admin: 01/02/18 09:05 Dose: 0.4 mg Trazodone HCl (Desyrel) 150 mg PO HS [facility] Last Admin: 01/01/18 21:14 Dose: 150 mg Allergies Allergy/AdvReac Type Severity Reaction Status Date / Time No Known Allergies Allergy Verified 01/01/18 14:22 Home Medications Medication Instructions Recorded Confirmed Type acetaminophen [Tylenol] 650 mg PO TID 01/01/18 01/01/18 History amlodipine 10 mg PO DAILY 01/01/18 01/01/18 History aspirin 81 mg PO DAILY 01/01/18 01/01/18 History atorvastatin [Lipitor] 40 mg PO HS 01/01/18 01/01/18 History baclofen 30 mg PO TID 01/01/18 01/01/18 History bupropion HCl 75 mg PO DAILY 01/01/18 01/01/18 History clonidine HCl [Catapres] 0.4 mg PO DAILY 01/01/18 01/01/18 History cyanocobalamin (vitamin B-12) 1,000 mcg PO DAILY 01/01/18 01/01/18 History docusate sodium [Colace] 100 mg PO BID 01/01/18 01/01/18 History donepezil [Aricept] 5 mg PO HS 01/01/18 01/01/18 History ferrous sulfate 648 mg PO 4XW 01/01/18 01/01/18 History gabapentin 300 mg PO DAILY 01/01/18 01/01/18 History hydrochlorothiazide 25 mg PO DAILY 01/01/18 01/01/18 History lisinopril 40 mg PO DAILY 01/01/18 01/01/18 History meloxicam [Mobic] 15 mg PO DAILY 01/01/18 01/01/18 History omega 5-gyz-xeg-fish oil [Fish Oil] 2,000 mg PO BID 01/01/18 01/01/18 History sertraline [Zoloft] 100 mg PO DAILY 01/01/18 01/01/18 History trazodone 150 mg PO HS 01/01/18 01/01/18 History Physical Exam Vital Signs - 24 hr 01/01/18 13:52 01/01/18 13:54 01/01/18 15:00 Temperature 98.8 F Pulse Rate 79 78 Respiratory Rate 23 15 Blood Pressure 182/79 H 183/77 H Pulse Oximetry 95 95 96 01/01/18 17:00 01/01/18 18:00 01/01/18 20:35 Temperature 102.2 F H 99 F Pulse Rate 78 78 71 Respiratory Rate 15 15 Blood Pressure 194/86 H 143/63 H Pulse Oximetry 96 95 01/01/18 23:08 01/02/18 00:00 01/02/18 04:00 Temperature 99.8 F H 102.3 F H Pulse Rate 79 87 Respiratory Rate 18 18 18 Blood Pressure 161/72 H 125/74 Pulse Oximetry 91 L 91 L 01/02/18 06:00 01/02/18 08:00 01/02/18 09:00 Temperature 98.9 F 100.0 F H Pulse Rate 71 79 78 Respiratory Rate 18 20 Blood Pressure 138/62 153/67 H Pulse Oximetry 91 L 91 L Physical Exam: GENERAL: This is a well-nourished, well-developed patient, in no apparent distress. SKIN: No rashes, ecchymoses or lesions. Cool and dry. HEAD: Atraumatic. Normocephalic. CARDIOVASCULAR: Regular rate and rhythm without murmurs, gallops, or rubs. RESPIRATORY: Clear to auscultation. Breath sounds equal bilaterally. No wheezes , rales, or rhonchi. GASTROINTESTINAL: Abdomen soft, non-tender, nondistended. GENITOURINARY: No CVAT. Bladder not distended MUSCULOSKELETAL: Extremities without clubbing, cyanosis, or edema. NEUROLOGICAL: Awake and alert. Laboratory Results - last 24 hr 01/01/18 01/01/18 01/01/18 14:00 14:00 14:05 WBC 10.8 RBC 4.81 Hgb 14.1 Hct 41.2 MCV 85.5 MCH 29.2 MCHC 34.2 RDW 13.8 Plt Count 110 L MPV 7.8 Neut % (Auto) 88.3 H Lymph % (Auto) 4.5 L [place] % (Auto) 6.1 Eos % (Auto) 0.0 Baso % (Auto) 1.1 Neut # (Auto) 9.6 H Lymph # (Auto) 0.5 L [place] # (Auto) 0.7 Eos # (Auto) 0.0 Baso # (Auto) 0.1 WBC Differential . Differential Comment Auto diff final PT 11.7 H INR 1.2 APTT 26.4 Sodium Potassium Chloride Carbon Dioxide Anion Gap BUN Creatinine Estimated GFR Random Glucose Lactic Acid 1.8 Calcium Phosphorus Magnesium Total Bilirubin AST ALT Alkaline Phosphatase Total Creatine Kinase CK-MB (CK-2) Troponin I Total Protein Albumin Lipase Urine Color Urine Clarity Urine pH Ur Specific [place] Urine Protein Urine Glucose (UA) Urine Ketones Urine Occult Blood Urine Nitrate Urine Bilirubin Urine Urobilinogen Ur Leukocyte Esterase Urine RBC Urine WBC Ur Squamous Epith Cells Amorphous Sediment Urine Bacteria Urine Mucus Micro UA Comment Ur Microscopic Review Urine Culture Comments 01/01/18 01/01/18 15:28 18:20 WBC RBC Hgb Hct MCV MCH MCHC RDW Plt Count MPV Neut % (Auto) Lymph % (Auto) [place] % (Auto) Eos % (Auto) Baso % (Auto) Neut # (Auto) Lymph # (Auto) [place] # (Auto) Eos # (Auto) Baso # (Auto) WBC Differential Differential Comment PT INR APTT Sodium 138 Potassium 3.2 L Chloride 101 Carbon Dioxide 27.1 Anion Gap 10 BUN 12 Creatinine 1.29 Estimated GFR 55 L Random Glucose 122 H Lactic Acid Calcium 7.8 L Phosphorus 1.9 L Magnesium 1.7 Total Bilirubin 1.1 H AST 16 ALT 19 Alkaline Phosphatase 76 Total Creatine Kinase 227 CK-MB (CK-2) 1.3 Troponin I 0.02 Total Protein 7.0 Albumin 3.1 L Lipase 54 L Urine Color Yellow Urine Clarity Hazy H Urine pH 7.0 Ur Specific [place] 1.008 Urine Protein 30 H Urine Glucose (UA) Negative Urine Ketones Negative Urine Occult Blood Moderate H Urine Nitrate Negative Urine Bilirubin Negative Urine Urobilinogen Less than 2 Ur Leukocyte Esterase Large H Urine RBC 4 H Urine WBC 44 H Ur Squamous Epith Cells 1 Amorphous Sediment Rare H Urine Bacteria Rare H Urine Mucus Few H Micro UA Comment Culture indicated Ur Microscopic Review Not Reportable Urine Culture Comments Culture indicated Microbiology 01/01/18 14:10 Aerobic Blood Culture - Preliminary Blood - Peripheral No growth in 1 day Anaerobic Blood Culture - Preliminary No growth in 1 day 01/01/18 14:00 Aerobic Blood Culture - Preliminary Blood - Peripheral No growth in 1 day Anaerobic Blood Culture - Preliminary No growth in 1 day Result Diagrams: 01/01/18 14:00 01/01/18 15:28 Imaging: ITS Impressions Chest X-Ray 01/01/18 13:52 CONCLUSION: No acute cardiopulmonary findings. Head CT 01/01/18 13:59 CONCLUSION: 1. Negative CT Head non contrast. . Abdomen/Pelvis CT 01/01/18 16:19 CONCLUSION: 1. 2 mm distal left ureteral calculus approximately 1 cm above the ureterovesicular junction with moderate hydronephrosis and hydroureter. 2. There are no renal calculi. Assessment and Plan - Plan 72y.o M with UTI and 2mm left ureteral stone - No acute GUn intervention needed - Continue care as per primary team - IV antbx, fluids, pain control, flomax. - Strain urine - Also check PVR by doing bladder scan after pt voids to make sure he is able to empty bladder well. - Follow up on final UC results and adjust antbx if needed based on C&S Follow up as outpt as scheduled at [place] on 01/11/18 Discussed Condition With: Dr Radha CÁRDENAS attending
--- NOTE | 2018-01-02 15:01 | ECG ---
Date Performed: 01/01/2018 Time Performed: 13:59:16 PTAGE: 72 years EKG: Sinus rhythm MARKED LEFT AXIS DEVIATION LEFT BUNDLE BRANCH BLOCK ABNORMAL ECG NO PREVIOUS TRACING DOCTOR: Ernesto Fong Interpretating Date/Time 01/02/2018 14:59:10
--- NOTE | 2018-01-02 17:26 | P.PNIM ---
Subjective Interval history: With obvious Rigors. Says he is comfortable however. Physical Exam Vital signs: Vital Signs 01/01/18 18:00 01/01/18 20:35 01/01/18 23:08 Temperature 102.2 F H 99 F 99.8 F H Pulse Rate 78 71 79 Respiratory Rate 15 18 Blood Pressure 143/63 H 161/72 H Pulse Oximetry 95 91 L 01/02/18 00:00 01/02/18 04:00 01/02/18 06:00 Temperature 102.3 F H 98.9 F Pulse Rate 87 71 Respiratory Rate 18 18 18 Blood Pressure 125/74 138/62 Pulse Oximetry 91 L 91 L 01/02/18 08:00 01/02/18 09:00 01/02/18 12:00 Temperature 100.0 F H Pulse Rate 79 78 73 Respiratory Rate 20 Blood Pressure 153/67 H Pulse Oximetry 91 L Intake & Output 01/01/18 01/02/18 01/02/18 18:59 06:59 18:59 Intake Total 1000 / 1000 1290 / 1290 Balance 1000 / 1000 1290 / 1290 Weight 77.111 kg 77 kg Intake: IV 1000 / 1000 1050 / 1050 Zosyn 3.375 GM Premix 50 ML @ 50 / 50 100 mls/hr IV.SIG ONCE ONE Rx#: [id number] NS Inj 1,000 ML @ Wide Open IV. 1000 / 1000 1000 / 1000 SIG BOLUS ONE Rx#:[id number] Oral 240 / 240 Other: # Voids 1 Narrative: GENERAL: Patient lying in bed. Rigors. SKIN: Warm and dry. HEAD: Normocephalic. EYES: No scleral icterus. No injection or drainage. NECK: Supple, trachea midline. No JVD. CARDIOVASCULAR: Regular rate and rhythm without murmurs, gallops, or rubs. RESPIRATORY: Breath sounds equal bilaterally. No accessory muscle use. GASTROINTESTINAL: Abdomen soft, non-tender, nondistended. MUSCULOSKELETAL: No cyanosis, or edema. BACK: Nontender without obvious deformity. No CVA tenderness. Results - Labs CBC & Chem 7: 01/01/18 14:00 01/01/18 15:28 Laboratory Results - last 24 hr 01/01/18 18:20 Urine Color Yellow Urine Clarity Hazy H Urine pH 7.0 Ur Specific [place] 1.008 Urine Protein 30 H Urine Glucose (UA) Negative Urine Ketones Negative Urine Occult Blood Moderate H Urine Nitrate Negative Urine Bilirubin Negative Urine Urobilinogen Less than 2 Ur Leukocyte Esterase Large H Urine RBC 4 H Urine WBC 44 H Ur Squamous Epith Cells 1 Amorphous Sediment Rare H Urine Bacteria Rare H Urine Mucus Few H Micro UA Comment Culture indicated Ur Microscopic Review Not Reportable Urine Culture Comments Culture indicated Microbiology 01/01/18 18:20 Clean Catch Urine Urine Culture - Preliminary gram negative rods 01/01/18 14:10 Blood - Peripheral Aerobic Blood Culture - Preliminary No growth in 1 day 01/01/18 14:10 Blood - Peripheral Anaerobic Blood Culture - Preliminary No growth in 1 day 01/01/18 14:00 Blood - Peripheral Aerobic Blood Culture - Preliminary No growth in 1 day 01/01/18 14:00 Blood - Peripheral Anaerobic Blood Culture - Preliminary No growth in 1 day - Imaging Impressions Abdomen/Pelvis CT 01/01/18 16:19 CONCLUSION: 1. 2 mm distal left ureteral calculus approximately 1 cm above the ureterovesicular junction with moderate hydronephrosis and hydroureter. 2. There are no renal calculi. Assessment and Plan - Assessment (1) UTI (urinary tract infection) Code(s): N39.0 - Urinary tract infection, site not specified Status: Acute (2) Renal stone Code(s): N20.0 - Calculus of kidney Status: Acute (3) Thrombocytopenia Code(s): D69.6 - Thrombocytopenia, unspecified Status: Acute - Plan //UTI: U/a w/ UTI, +fever 102.2, continue w/ IV Abx, follow up cultures, IVF for hydration, monitor I/O. = 01/02. Patient with rigors. Heart rate 104, elevated temperature of 100.0. Fever 102 last night. Suspected sepsis. Will order stat labs. Switch antibiotics from ceftriaxone which patient has not received yet to Zosyn. //Renal Stone: CT Abd/Pelvis w/ 2mm left ureteral calculus w/ moderate hydronephrosis and hydroureter, images reviewed. Dr. Garcia consulted, recommended Flomax, no intervention as stone likely to pass on its own. Pt has upcoming bobby w/ Urology at the [facility] on 01/11/18, follow up w/ Urology as scheduled. Analgesics/antiemetics as needed. IVF for hydration. = No intervention at this time. Appreciate urology assistance. //Thrombocytopenia: Platelets 110, no previous labs for comparison, reports h/ o long-standing hematuria, possibly due to thrombocytopenia, recommend outpatient follow up, monitor for bleeding, repeat labs in am. = Follow-up repeat CBC. //DVT Prophylaxis: SCD/Teds Discussed Condition With: Patient, nurse, at bedside. Discharge Planning: Pending improvement.
[2018-01-02] MEDS: Piperacil/Tazo 4.5 GM Premix 4.5 GM/100 ML BAG IV.SIG SCH (17:41)
[2018-01-02 18:10] LABS: Baso % (Auto) 0.2 % (0.0-2.0); Eos % (Auto) 0.2 % (0.0-4.0); Hematocrit 38.4 % (39.0-51.0); Hemoglobin 13.3 gm/dL (13.0-17.0); Lymph # (Auto) 0.7 th/mm3 (1.0-4.8); Lymph % (Auto) 7.8 % (9.0-44.0); Mean Corpuscular HGB Conc 34.7 % (32.0-36.0); Mean Corpuscular Hemoglobin 29.5 pg (27.0-34.0); Mean Corpuscular Volume 85.2 fL (80.0-100.0); Mean Platelet Volume 7.9 fL (7.0-11.0); Mono # (Auto) 0.8 th/mm3 (0.0-0.9); Neut # (Auto) 7.3 th/mm3 (1.8-7.7); Neut % (Auto) 82.8 % (16.0-70.0); Platelet Count 93 th/mm3 (150-450); Red Blood Count 4.51 mil/mm3 (4.50-5.90); Red Cell Distribution Width 13.8 % (11.6-17.2); White Blood Count 8.8 th/mm3 (4.0-11.0)
[2018-01-02 18:45] LABS: Platelet Morphology Normal (Normal); RBC Morphology Normal (Normal)
[2018-01-02 18:51] LABS: Albumin 2.9 g/dL (3.4-5.0); Calcium 7.2 mg/dL (8.5-10.1); Carbon Dioxide 28.5 meq/L (21.0-32.0); Phosphorus 2.4 mg/dL (2.5-4.9); Potassium 3.1 meq/L (3.5-5.1); Total Protein 6.5 g/dL (6.4-8.2)
[2018-01-02] MEDS: traZODone 50 MG Tablet PO SCH ×2 (21:51→21:58)
[2018-01-03] MEDS: Piperacil/Tazo 4.5 GM Premix 4.5 GM/100 ML BAG IV.SIG SCH ×2 (00:34→05:46)
[2018-01-03] MEDS ORDERED: Thiamine Inj 100 MG in Sodium Chlor 0.9% Inj 100 ML IV.SIG ONE ×2 (06:00→10:00)
[2018-01-03] MEDS: Potassium Chlor 20 mEq Premix 20 MEQ/100 ML PIGGYBACK IV.SIG SCH ×2 (06:59→09:00)
[2018-01-03 07:19] LABS: Baso % (Auto) 0.2 % (0.0-2.0); Eos % (Auto) 0.6 % (0.0-4.0); Hematocrit 40.7 % (39.0-51.0); Hemoglobin 13.6 gm/dL (13.0-17.0); Lymph # (Auto) 0.6 th/mm3 (1.0-4.8); Lymph % (Auto) 8.8 % (9.0-44.0); Mean Corpuscular HGB Conc 33.5 % (32.0-36.0); Mean Corpuscular Hemoglobin 29.2 pg (27.0-34.0); Mean Corpuscular Volume 87.4 fL (80.0-100.0); Mean Platelet Volume 8.4 fL (7.0-11.0); Mono # (Auto) 0.5 th/mm3 (0.0-0.9); Mono % (Auto) 8.1 % (0.0-8.0); Neut # (Auto) 5.4 th/mm3 (1.8-7.7); Neut % (Auto) 82.3 % (16.0-70.0); Platelet Count 95 th/mm3 (150-450); Red Blood Count 4.66 mil/mm3 (4.50-5.90); Red Cell Distribution Width 13.9 % (11.6-17.2); White Blood Count 6.6 th/mm3 (4.0-11.0)
[2018-01-03 07:56] LABS: Albumin 2.8 g/dL (3.4-5.0); Calcium 7.5 mg/dL (8.5-10.1); Carbon Dioxide 26.1 meq/L (21.0-32.0); Magnesium 1.9 mg/dL (1.5-2.5); Phosphorus 2.6 mg/dL (2.5-4.9)
[2018-01-03 08:01] LABS: Potassium 2.9 meq/L (3.5-5.1)
[2018-01-03 08:12] LABS: Ovalocytes 1+
[2018-01-03] MEDS: Gabapentin 300 MG Capsule PO SCH (09:43)
[2018-01-03] MEDS: Sertraline 100 MG Tablet PO SCH (09:44)
[2018-01-03] MEDS: buPROPion 75 MG Tablet PO SCH (09:44)
[2018-01-03] MEDS: Baclofen 10 MG Tablet PO SCH ×3 (09:44→18:31)
--- NOTE | 2018-01-03 11:13 | P.PNIM ---
Subjective Interval history: Patient says he is feeling better today. Denies any chest pain or shortness of breath. No more rigors today, however he did have rigors last night. Physical Exam Vital signs: Vital Signs 01/02/18 12:00 01/02/18 16:00 01/02/18 17:45 Temperature 98.8 F 98.2 F 102 F H Pulse Rate 63 65 104 H Respiratory Rate 20 20 16 Blood Pressure 105/54 L 112/65 160/70 H Pulse Oximetry 90 L 91 L 91 L 01/02/18 20:16 01/02/18 21:08 01/03/18 00:00 Temperature 98.4 F 98.2 F Pulse Rate 64 60 59 L Respiratory Rate 16 16 Blood Pressure 122/60 116/56 L Pulse Oximetry 93 L 96 01/03/18 00:02 01/03/18 04:00 01/03/18 04:10 Temperature 97.8 F Pulse Rate 55 L 58 L 56 L Respiratory Rate 17 Blood Pressure 145/67 H Pulse Oximetry 98 01/03/18 08:00 Temperature 98.6 F Pulse Rate 66 Respiratory Rate 18 Blood Pressure 151/67 H Pulse Oximetry 96 Intake & Output 01/02/18 01/03/18 01/03/18 18:59 06:59 18:59 Intake Total 680 / 680 1200 / 1200 1100 / 1100 Output Total 400 / 400 400 / 400 Balance 280 / 280 800 / 800 1100 / 1100 Weight 80.1 kg Intake: IV 200 / 200 1200 / 1200 1100 / 1100 NS + KCl 20 mEq Inj 1,000 ML @ 1000 / 1000 1000 / 1000 125 mls/hr IV.CONT .Q8H [facility] Rx# :[id number] Ofirmev Inj 1,000 mg In 100 ml 100 / 100 @ 400 mls/hr IV.SIG ONCE ONE Rx #:[id number] Zosyn 4.5 GM Premix 4.5 gm In 100 / 100 200 / 200 100 ml @ 200 mls/hr IV.SIG Q6H [facility] Rx#:[id number] KCl 20 mEq Premix Inj 20 meq In 100 / 100 100 ml @ 50 mls/hr IV.SIG Q2H [facility] Rx#:[id number] Oral 480 / 480 Output: Urine 400 / 400 400 / 400 Other: Date of Last Bowel Movement 01/03/18 # Bowel Movements 0 1 Narrative: GENERAL: Patient lying in bed. Appears comfortable today. SKIN: Warm and dry. HEAD: Normocephalic. EYES: No scleral icterus. No injection or drainage. NECK: Supple, trachea midline. No JVD. CARDIOVASCULAR: Regular rate and rhythm without murmurs, gallops, or rubs. RESPIRATORY: Breath sounds equal bilaterally. No accessory muscle use. GASTROINTESTINAL: Abdomen soft, non-tender, nondistended. MUSCULOSKELETAL: No cyanosis, or edema. BACK: Nontender without obvious deformity. No CVA tenderness. Results - Labs CBC & Chem 7: 01/03/18 05:40 01/03/18 05:40 Laboratory Results - last 24 hr 01/01/18 01/02/18 01/02/18 18:20 17:46 17:46 WBC 8.8 RBC 4.51 Hgb 13.3 Hct 38.4 L MCV 85.2 MCH 29.5 MCHC 34.7 RDW 13.8 Plt Count 93 L MPV 7.9 Prelim Diff (Auto) Slide review pending Neut % (Auto) 82.8 H Lymph % (Auto) 7.8 L [place] % (Auto) 9.0 H Eos % (Auto) 0.2 Baso % (Auto) 0.2 Neut # (Auto) 7.3 Lymph # (Auto) 0.7 L [place] # (Auto) 0.8 Eos # (Auto) 0.0 Baso # (Auto) 0.0 WBC Differential . Diff Scan Auto diff confirmed Differential Comment . Platelet Estimate Low L Platelet Morphology Normal RBC Morphology Normal Ovalocytes Sodium 138 Potassium 3.1 L Chloride 99 Carbon Dioxide 28.5 Anion Gap 11 BUN 14 Creatinine 1.35 H Estimated GFR 52 L POC Glucose Random Glucose 98 Lactic Acid Calcium 7.2 L* Prot Corrected Calcium 7.5 L Phosphorus 2.4 L Magnesium Total Bilirubin 1.0 AST 30 ALT 20 Alkaline Phosphatase 73 Total Protein 6.5 Albumin 2.9 L Urine Color Yellow Urine Clarity Hazy H Urine pH 7.0 Ur Specific [place] 1.008 Urine Protein 30 H Urine Glucose (UA) Negative Urine Ketones Negative Urine Occult Blood Moderate H Urine Nitrate Negative Urine Bilirubin Negative Urine Urobilinogen Less than 2 Ur Leukocyte Esterase Large H Urine RBC 4 H Urine WBC 44 H Ur Squamous Epith Cells 1 Amorphous Sediment Rare H Urine Bacteria Rare H Urine Mucus Few H Micro UA Comment Culture indicated Urine Culture Comments Culture indicated 01/02/18 01/02/1818 17:46 22:03 05:40 WBC 6.6 RBC 4.66 Hgb 13.6 Hct 40.7 MCV 87.4 MCH 29.2 MCHC 33.5 RDW 13.9 Plt Count 95 L MPV 8.4 Prelim Diff (Auto) Slide review pending Neut % (Auto) 82.3 H Lymph % (Auto) 8.8 L [place] % (Auto) 8.1 H Eos % (Auto) 0.6 Baso % (Auto) 0.2 Neut # (Auto) 5.4 Lymph # (Auto) 0.6 L [place] # (Auto) 0.5 Eos # (Auto) 0.0 Baso # (Auto) 0.0 WBC Differential . Diff Scan Auto diff confirmed Differential Comment . Platelet Estimate Platelet Morphology RBC Morphology Ovalocytes 1+ H Sodium Potassium Chloride Carbon Dioxide Anion Gap BUN Creatinine Estimated GFR POC Glucose 145 H Random Glucose Lactic Acid 2.2 H Calcium Prot Corrected Calcium Phosphorus Magnesium Total Bilirubin AST ALT Alkaline Phosphatase Total Protein Albumin Urine Color Urine Clarity Urine pH Ur Specific [place] Urine Protein Urine Glucose (UA) Urine Ketones Urine Occult Blood Urine Nitrate Urine Bilirubin Urine Urobilinogen Ur Leukocyte Esterase Urine RBC Urine WBC Ur Squamous Epith Cells Amorphous Sediment Urine Bacteria Urine Mucus Micro UA Comment Urine Culture Comments 01/03/18 01/03/18 05:40 07:32 WBC RBC Hgb Hct MCV MCH MCHC RDW Plt Count MPV Prelim Diff (Auto) Neut % (Auto) Lymph % (Auto) [place] % (Auto) Eos % (Auto) Baso % (Auto) Neut # (Auto) Lymph # (Auto) [place] # (Auto) Eos # (Auto) Baso # (Auto) WBC Differential Diff Scan Differential Comment Platelet Estimate Platelet Morphology RBC Morphology Ovalocytes Sodium 141 Potassium 2.9 L* Chloride 104 Carbon Dioxide 26.1 Anion Gap 11 BUN 14 Creatinine 1.21 Estimated GFR 59 L POC Glucose Random Glucose 96 Lactic Acid 1.7 Calcium 7.5 L Prot Corrected Calcium Phosphorus 2.6 Magnesium 1.9 Total Bilirubin AST ALT Alkaline Phosphatase Total Protein Albumin 2.8 L Urine Color Urine Clarity Urine pH Ur Specific [place] Urine Protein Urine Glucose (UA) Urine Ketones Urine Occult Blood Urine Nitrate Urine Bilirubin Urine Urobilinogen Ur Leukocyte Esterase Urine RBC Urine WBC Ur Squamous Epith Cells Amorphous Sediment Urine Bacteria Urine Mucus Micro UA Comment Urine Culture Comments Microbiology 01/01/18 14:10 Blood - Peripheral Aerobic Blood Culture - Preliminary No growth in 2 days 01/01/18 14:10 Blood - Peripheral Anaerobic Blood Culture - Preliminary No growth in 2 days 01/01/18 14:00 Blood - Peripheral Aerobic Blood Culture - Preliminary No growth in 2 days 01/01/18 14:00 Blood - Peripheral Anaerobic Blood Culture - Preliminary No growth in 2 days 01/01/18 18:20 Clean Catch Urine Urine Culture - Final Proteus mirabilis Assessment and Plan - Assessment (1) UTI (urinary tract infection) Code(s): N39.0 - Urinary tract infection, site not specified Status: Acute (2) Renal stone Code(s): N20.0 - Calculus of kidney Status: Acute (3) Thrombocytopenia Code(s): D69.6 - Thrombocytopenia, unspecified Status: Acute - Plan //Complicated UTI: //Sepsis = 01/02 U/a w/ UTI, +fever 102.2, continue w/ IV Abx, follow up cultures, IVF for hydration, monitor I/O. = 01/02. Patient with rigors. Heart rate 104, elevated temperature of 100.0. Fever 102 last night. Suspected sepsis. Will order stat labs. Switch antibiotics from ceftriaxone which patient has not received yet to Zosyn. = 01/03. Shaking and chills has resolved. Proteus pansensitive. Will switch to by mouth Levaquin. Patient appears to be very weak will await physical therapy recommendations. Appreciate assistance. Will need to follow-up with urology as outpatient //Acute anemia. Potassium 2.9. Replace and monitor. //Hypertension. Blood pressures in the 150s today, improving. Will start back on home medications as warranted. Continue to monitor. //Renal Stone: CT Abd/Pelvis w/ 2mm left ureteral calculus w/ moderate hydronephrosis and hydroureter, images reviewed. Dr. Garcia consulted, recommended Flomax, no intervention as stone likely to pass on its own. Pt has upcoming bobby w/ [facility] on 01/11/18, follow up w/ Urology as scheduled. Analgesics/antiemetics as needed. IVF for hydration. = No intervention at this time. Appreciate urology assistance. Will need to follow-up with urology as outpatient. //Thrombocytopenia: Platelets 110, no previous labs for comparison, reports h/ o long-standing hematuria, possibly due to thrombocytopenia, recommend outpatient follow up, monitor for bleeding, repeat labs in am. = Follow-up repeat CBC. Platelets 95 stable. No signs of bleeding. //DVT Prophylaxis: SCD/Teds Discharge Planning: Discharge tomorrow if continues stable.
--- NOTE | 2018-01-03 11:14 | P.DCO ---
- Physical Therapy Order: Evaluate and treat - Home Health Nursing Order: Medical education, Nursing assessment with vital signs - Case Management Consult Yes - Certification I have seen patient Kenji Moore on 01/03/18. My clinical findings support the need for the requested home health care services because: Limited ability to care for self I certify that my clinical findings support that this patient is homebound because: Unsafe to leave home unassisted
[2018-01-03] MEDS: amLODIPine 10 MG Tablet PO SCH (12:34)
[2018-01-03] MEDS: levoFLOXacin 750 MG Tablet PO SCH (12:34)
[2018-01-03] MEDS: traZODone 50 MG Tablet PO SCH (21:54)
[2018-01-04 06:31] LABS: Baso % (Auto) 0.2 % (0.0-2.0); Eos % (Auto) 0.1 % (0.0-4.0); Hematocrit 39.3 % (39.0-51.0); Hemoglobin 13.6 gm/dL (13.0-17.0); Lymph # (Auto) 0.4 th/mm3 (1.0-4.8); Mean Corpuscular HGB Conc 34.6 % (32.0-36.0); Mean Corpuscular Hemoglobin 29.9 pg (27.0-34.0); Mean Corpuscular Volume 86.6 fL (80.0-100.0); Mean Platelet Volume 8.1 fL (7.0-11.0); Mono # (Auto) 0.5 th/mm3 (0.0-0.9); Mono % (Auto) 6.3 % (0.0-8.0); Neut # (Auto) 6.5 th/mm3 (1.8-7.7); Neut % (Auto) 88.4 % (16.0-70.0); Platelet Count 106 th/mm3 (150-450); Red Blood Count 4.54 mil/mm3 (4.50-5.90); Red Cell Distribution Width 14.1 % (11.6-17.2); White Blood Count 7.4 th/mm3 (4.0-11.0)
[2018-01-04 06:45] LABS: Albumin 2.5 g/dL (3.4-5.0); Calcium 7.3 mg/dL (8.5-10.1); Carbon Dioxide 24.7 meq/L (21.0-32.0); Magnesium 1.5 mg/dL (1.5-2.5); Phosphorus 1.5 mg/dL (2.5-4.9); Potassium 3.4 meq/L (3.5-5.1)
[2018-01-04] MEDS: Baclofen 10 MG Tablet PO SCH ×3 (08:24→17:32)
[2018-01-04] MEDS: Gabapentin 300 MG Capsule PO SCH (08:24)
[2018-01-04] MEDS: buPROPion 75 MG Tablet PO SCH (08:25)
[2018-01-04] MEDS: Lisinopril 20 MG Tablet PO SCH (08:25)
[2018-01-04] MEDS: Acetaminophen 325 MG Tablet PO PRN (08:26)
[2018-01-04] MEDS: amLODIPine 10 MG Tablet PO SCH (08:26)
[2018-01-04] MEDS: Sertraline 100 MG Tablet PO SCH (08:26)
--- NOTE | 2018-01-04 09:37 | XR ---
EXAM DATE: 01/04/2018 12:00 AM EDT AGE/SEX: 72 years / Male INDICATIONS: Atelectasis. Patient complains of chest pain and shortness of breath. CLINICAL DATA: This is the patient's initial encounter. Patient reports that signs and symptoms have been present for 1 day and indicates a pain score of 4/10. MEDICAL/SURGICAL HISTORY: Hypertension. None. COMPARISON: C, CHEST 1V SINGLE AP, 01/01/2018. . FINDINGS: Deterioration in the appearance of the chest with increasing parenchymal changes in the right lower l obe and about the left hilum. Moderate interstitial edema. Minimal cardiomegaly. The portion of the bony skeleton visualized is unremarkable. CONCLUSION: Significant deterioration appearance of the chest from 01/02/2008. Congestive failure would be conside ration. Laboratory process right base would be consideration. Electronically signed by: Dipak Radford MD 01/04/2018 9:36 AM EDT
[2018-01-04] MEDS ORDERED: Potassium Phosphate Inj 15 MMOL in Sodium Chlor 0.9% Inj 150 ML IV.SIG ONE (10:00)
[2018-01-04 10:06] LABS: Bilirubin,Urine Negative (Negative); Clarity,Urine Clear (Clear); Color,Urine Straw (Yellw/Straw); Glucose,Urine (UA) Negative (Negative); Leukocyte Esterase,Urine Negative (Negative); Mucus,Urine Few /lpf (Occasional); Nitrite,Urine Negative (Negative); Specific Gravity,Urine 1.006 (1.002-1.035); Squamous Epithelial Cell,Urine <1 /hpf (0-5)
[2018-01-04 10:48] LABS: Albumin 2.6 g/dL (3.4-5.0)
[2018-01-04 10:50] LABS: Total Protein 6.6 g/dL (6.4-8.2)
[2018-01-04] MEDS: levoFLOXacin 750 MG Tablet PO SCH (11:47)
--- NOTE | 2018-01-04 13:34 | P.CONID ---
History of Present Illness Service: Infectious Disease Consult date: 01/04/18 Requesting Physician: Rex Schneider Reason for Consult: Evaluation and Mment of persistent fevers, UTI. Primary Care Provider: Julieta Sims MD Chief Complaint: left flank pain History of Present Illness: Most of the history was obtained by review of medical records. Patient has periods of confusion off and on. Mr. Moore is a 72-year-old male with past medical history significant for prostate cancer, hypertension and hyperlipidemia who was brought into the ER by EMS for altered mental status and fever. Patient's family reports that he had a fever of 101 in addition to intense crackers and episodes of confusion. Also patient had reported severe left-sided flank pain 10 out of 10 in intensity, nonradiating. Patient also had nausea and vomiting at that time. On arrival his blood pressure was on 182/79, heart rate 79, O2 sats 95% on room air and afebrile. UA positive for UTI. CT Head negative. CXR negative. CT Abdomen/Pelvis 2 mm distal left ureteral calculus with moderate hydronephrosis and hydroureter. Dr. Garcia consulted by ER physician, recommended Flomax, no intervention as stone likely to pass on its own. S/p Vanc/Zosyn in ER. Family notes pt has had hematuria for "several months", [facility], has upcoming appt on 01/11/18. Infectious diseases consulted for evaluation and further discussion with Dr. Schneider as well as the patient has it appears that patient has issues with swallowing off and on for quite some time. There is a plan for swallow eval as well as GI placed. Review of Systems unobtainable due to mental status PMFSH - History History Provided By: Patient, Family Member - Medical History Medical History: Medical History (Last Reviewed 01/04/18 @ 08:18 by [facility]) HTN (hypertension) High cholesterol - Surgical History Surgical History: Surgical History (Last Reviewed 01/04/18 @ 08:18 by [facility]) History of cataract surgery - Tobacco History Second Hand Smoke Exposure: No Tobacco Use In Past 30 Days: No Smoking Status: Former smoker Tobacco Type: Cigarettes - Alcohol History How Often Do You Have a Drink Containing Alcohol: Never - Substance Use History Substance History: No History of Abuse - Travel History Recent Travel in the [facility] Within the Last 8 Weeks: No Recent Travel Out of the Country Within the Last 8 Weeks: No - Immunization History Tetanus Immunization: >5 Years Hx Influenza Vaccine This Season: No Medications and Allergies Active Medications: Active Medications Acetaminophen (Tylenol) 650 mg PO Q4H PRN PRN Reason: FEVER Last Admin: 01/04/18 08:26 Dose: 650 mg Amlodipine Besylate (Norvasc) 10 mg PO DAILY [facility] Last Admin: 01/04/18 08:26 Dose: 10 mg Aspirin (Ecotrin) 81 mg PO DAILY [facility] Last Admin: 01/04/18 08:26 Dose: 81 mg Atorvastatin Calcium (Lipitor) 40 mg PO HS [facility] Last Admin: 01/03/18 21:54 Dose: 40 mg Baclofen (Lioresal) 30 mg PO TID [facility] Last Admin: 01/04/18 12:02 Dose: Not Given Bupropion HCl (Wellbutrin) 75 mg PO DAILY [facility] Last Admin: 01/04/18 08:25 Dose: 75 mg Clonidine HCl (Catapres) 0.4 mg PO DAILY [facility] Last Admin: 01/04/18 08:26 Dose: 0.4 mg Donepezil HCl (Aricept) 5 mg PO HS [facility] Last Admin: 01/03/18 21:54 Dose: 5 mg Gabapentin (Neurontin) 300 mg PO DAILY [facility] Last Admin: 01/04/18 08:24 Dose: 300 mg Potassium Chloride/Sodium Chloride (Ns + Kcl 20 Meq Inj) 1,000 mls @ 125 mls/ hr IV.CONT .Q8H [facility] Last Admin: 01/04/18 12:02 Dose: Not Given Potassium Phosphate 15 mmol/ (Sodium Chloride) 155 mls @ 38.75 mls/hr IV.SIG ONCE ONE Stop: 01/04/18 13:59 Last Admin: 01/04/18 10:22 Dose: 38.75 mls/hr Piperacillin/Tazobactam/Dextrose (Zosyn 4.5 Gm Premix) 4.5 gm in 100 mls @ 200 mls/hr IV.SIG Q6H [facility] Levofloxacin (Levaquin) 750 mg PO Q24H [facility] Last Admin: 01/04/18 11:47 Dose: 750 mg Lisinopril (Prinivil) 40 mg PO DAILY [facility] Last Admin: 01/04/18 08:25 Dose: 40 mg Morphine Sulfate (Morphine Inj) 2 mg IV.PUSH Q4H PRN PRN Reason: PAIN 6-10 Sertraline HCl (Zoloft) 100 mg PO DAILY [facility] Last Admin: 01/04/18 08:26 Dose: 100 mg Tamsulosin HCl (Flomax) 0.4 mg PO DAILY [facility] Last Admin: 01/04/18 08:26 Dose: 0.4 mg Trazodone HCl (Desyrel) 150 mg PO [facility] Last Admin: 01/03/18 21:54 Dose: 150 mg Allergies Allergy/AdvReac Type Severity Reaction Status Date / Time No Known Allergies Allergy Verified 01/01/18 14:22 Home Medications Medication Instructions Recorded Confirmed Type acetaminophen [Tylenol] 650 mg PO TID 01/01/18 01/01/18 History amlodipine 10 mg PO DAILY 01/01/18 01/01/18 History aspirin 81 mg PO DAILY 01/01/18 01/01/18 History atorvastatin [Lipitor] 40 mg PO HS 01/01/18 01/01/18 History baclofen 30 mg PO TID 01/01/18 01/01/18 History bupropion HCl 75 mg PO DAILY 01/01/18 01/01/18 History clonidine HCl [Catapres] 0.4 mg PO DAILY 01/01/18 01/01/18 History cyanocobalamin (vitamin B-12) 1,000 mcg PO DAILY 01/01/18 01/01/18 History docusate sodium [Colace] 100 mg PO BID 01/01/18 01/01/18 History donepezil [Aricept] 5 mg PO HS 01/01/18 01/01/18 History ferrous sulfate 648 mg PO 4XW 01/01/18 01/01/18 History gabapentin 300 mg PO DAILY 01/01/18 01/01/18 History hydrochlorothiazide 25 mg PO DAILY 01/01/18 01/01/18 History lisinopril 40 mg PO DAILY 01/01/18 01/01/18 History meloxicam [Mobic] 15 mg PO DAILY 01/01/18 01/01/18 History omega 1-ooa-dns-fish oil [Fish Oil] 2,000 mg PO BID 01/01/18 01/01/18 History sertraline [Zoloft] 100 mg PO DAILY 09/30/18 09/30/18 History trazodone 150 mg PO HS 01/01/18 01/01/18 History Exam Vital signs: Vital Signs 01/03/18 16:00 01/03/18 20:00 01/03/18 23:55 Temperature 98.5 F 99.1 F 98 F Pulse Rate 68 70 98 H Respiratory Rate 17 16 18 Blood Pressure 133/62 137/60 163/73 H Pulse Oximetry 97 94 L 94 L 01/04/18 01:49 01/04/18 04:00 01/04/18 08:00 Temperature 100.7 F H 100.9 F H Pulse Rate 88 101 H 88 Respiratory Rate 18 20 20 Blood Pressure 169/76 H 173/77 H 154/71 H Pulse Oximetry 94 L 92 L 91 L 01/04/18 09:00 01/04/18 09:30 01/04/18 12:00 Temperature 99.4 F 97.6 F Pulse Rate 89 52 L Respiratory Rate 20 Blood Pressure 100/56 L Pulse Oximetry 94 L Intake & Output 01/03/18 01/04/18 01/04/18 18:59 06:59 18:59 Intake Total 3501 / 3501 1400 / 1400 Output Total 800 / 800 Balance 3501 / 3501 600 / 600 Weight 80.5 kg Intake: IV 2301 / 2301 1000 / 1000 NS + KCl 20 mEq Inj 1,000 ML @ 2000 / 2000 1000 / 1000 125 mls/hr IV.CONT .Q8H [facility] Rx# :[id number] KCl 20 mEq Premix Inj 20 meq In 200 / 200 100 ml @ 50 mls/hr IV.SIG Q2H [facility] Rx#:[id number] Thiamine Inj 100 MG In NS Inj 101 / 101 100 ML @ 100 mls/hr IV.SIG ONCE ONE Rx#:[id number] Oral 1200 / 1200 400 / 400 Output: Urine 800 / 800 Other: # Voids 5 # Bowel Movements 2 Narrative: Sitting in the chair in no acute distress GENERAL: Well-nourished well-developed, not in acute distress SKIN: Cool and dry, no generalized rash HEAD: Atraumatic. Normocephalic. No temporal or scalp tenderness. EYES: Pupils equal round and reactive. Scleral icterus. No injection or drainage. No petechia ENT: Nothing abnormal detected NECK: Trachea midline. Supple, nontender, no meningeal signs. CARDIOVASCULAR: HS audible. RESPIRATORY: Basilar crackles. Decreased air entry in the bases. GASTROINTESTINAL: Abdomen soft nontender. MUSCULOSKELETAL: Extremities without clubbing, cyanosis. NEUROLOGICAL: Alert oriented 3. Nonfocal. Psych cooperative IV line sites ok. Results - Labs CBC & Chem 7: 01/04/18 05:05 01/04/18 05:05 Labs: Laboratory Results - last 24 hr 01/04/18 01/04/18 01/04/18 05:05 05:05 05:05 WBC 7.4 RBC 4.54 Hgb 13.6 Hct 39.3 MCV 86.6 MCH 29.9 MCHC 34.6 RDW 14.1 Plt Count 106 L MPV 8.1 Neut % (Auto) 88.4 H Lymph % (Auto) 5.0 L [place] % (Auto) 6.3 Eos % (Auto) 0.1 Baso % (Auto) 0.2 Neut # (Auto) 6.5 Lymph # (Auto) 0.4 L [place] # (Auto) 0.5 Eos # (Auto) 0.0 Baso # (Auto) 0.0 WBC Differential . Differential Comment Auto diff final Sodium 141 Potassium 3.4 L Chloride 106 Carbon Dioxide 24.7 Anion Gap 10 BUN 8 Creatinine 0.90 Estimated GFR 83 L POC Glucose Random Glucose 118 H Calcium 7.3 L* Phosphorus 1.5 L D Magnesium 1.5 Total Bilirubin 0.8 Direct Bilirubin 0.3 H Indirect Bilirubin 0.5 AST 42 H ALT 34 Alkaline Phosphatase 100 Total Protein 6.6 Albumin 2.5 L 2.6 L Urine Color Urine Clarity Urine pH Ur Specific [place] Urine Protein Urine Glucose (UA) Urine Ketones Urine Occult Blood Urine Nitrate Urine Bilirubin Urine Urobilinogen Ur Leukocyte Esterase Urine RBC Urine WBC Ur Squamous Epith Cells Urine Mucus Ur Microscopic Review 01/04/18 01/04/18 09:30 11:42 WBC RBC Hgb Hct MCV MCH MCHC RDW Plt Count MPV Neut % (Auto) Lymph % (Auto) [place] % (Auto) Eos % (Auto) Baso % (Auto) Neut # (Auto) Lymph # (Auto) [place] # (Auto) Eos # (Auto) Baso # (Auto) WBC Differential Differential Comment Sodium Potassium Chloride Carbon Dioxide Anion Gap BUN Creatinine Estimated GFR POC Glucose 194 H Random Glucose Calcium Phosphorus Magnesium Total Bilirubin Direct Bilirubin Indirect Bilirubin AST ALT Alkaline Phosphatase Total Protein Albumin Urine Color Straw Urine Clarity Clear Urine pH 7.0 Ur Specific [place] 1.006 Urine Protein 30 H Urine Glucose (UA) Negative Urine Ketones Trace H Urine Occult Blood Small H Urine Nitrate Negative Urine Bilirubin Negative Urine Urobilinogen 2.0 H Ur Leukocyte Esterase Negative Urine RBC Less than 1 Urine WBC 1 Ur Squamous Epith Cells <1 Urine Mucus Few H Ur Microscopic Review Not Reportable - Imaging Impressions Chest X-Ray 01/04/18 00:00 CONCLUSION: Significant deterioration appearance of the chest from 01/02/2008. Congestive failure would be consideration. Laboratory process right base would be consideration. Assessment and Plan - Plan Pyelonephritis the presence of stone complicated UTI Proteus UTI Acute metabolic encephalopathy likely secondary to sepsis History of swallowing difficulties concern for aspiration pneumonia Recs: Continue Zosyn IV Continue Levaquin Likely fever due to source from aspiration pneumonia If afebrile in the a.m. we will likely de-escalate further Follow cultures Follow clinically
--- NOTE | 2018-01-04 14:19 | P.PNIM ---
Subjective Interval history: She had a fever this morning. He denies any chest pain or shortness of breath. does report he has had difficulty swallowing over the past month Physical Exam Vital signs: Vital Signs 01/03/18 16:00 01/03/18 20:00 01/03/18 23:55 Temperature 98.5 F 99.1 F 98 F Pulse Rate 68 70 98 H Respiratory Rate 17 16 18 Blood Pressure 133/62 137/60 163/73 H Pulse Oximetry 97 94 L 94 L 01/04/18 01:49 01/04/18 04:00 01/04/18 08:00 Temperature 100.7 F H 100.9 F H Pulse Rate 88 101 H 88 Respiratory Rate 18 20 20 Blood Pressure 169/76 H 173/77 H 154/71 H Pulse Oximetry 94 L 92 L 91 L 01/04/18 09:00 01/04/18 09:30 01/04/18 12:00 Temperature 99.4 F 97.6 F Pulse Rate 89 52 L Respiratory Rate 20 Blood Pressure 100/56 L Pulse Oximetry 94 L Intake & Output 01/03/18 01/04/18 01/04/18 18:59 06:59 18:59 Intake Total 3501 / 3501 1400 / 1400 Output Total 800 / 800 Balance 3501 / 3501 600 / 600 Weight 80.5 kg Intake: IV 2301 / 2301 1000 / 1000 NS + KCl 20 mEq Inj 1,000 ML @ 2000 / 2000 1000 / 1000 125 mls/hr IV.CONT .Q8H [facility] Rx# :[id number] KCl 20 mEq Premix Inj 20 meq In 200 / 200 100 ml @ 50 mls/hr IV.SIG Q2H [facility] Rx#:[id number] Thiamine Inj 100 MG In NS Inj 101 / 101 100 ML @ 100 mls/hr IV.SIG ONCE ONE Rx#:[id number] Oral 1200 / 1200 400 / 400 Output: Urine 800 / 800 Other: # Voids 5 # Bowel Movements 2 Narrative: GENERAL: Patient lying in bed. Appears comfortable today. SKIN: Warm and dry. HEAD: Normocephalic. EYES: No scleral icterus. No injection or drainage. NECK: Supple, trachea midline. No JVD. CARDIOVASCULAR: Regular rate and rhythm without murmurs, gallops, or rubs. RESPIRATORY: Breath sounds equal bilaterally. No accessory muscle use. GASTROINTESTINAL: Abdomen soft, non-tender, nondistended. MUSCULOSKELETAL: No cyanosis, or edema. BACK: Nontender without obvious deformity. No CVA tenderness. Results - Labs CBC & Chem 7: 01/04/18 05:05 01/04/18 05:05 Laboratory Results - last 24 hr 01/04/18 01/04/18 01/04/18 05:05 05:05 05:05 WBC 7.4 RBC 4.54 Hgb 13.6 Hct 39.3 MCV 86.6 MCH 29.9 MCHC 34.6 RDW 14.1 Plt Count 106 L MPV 8.1 Neut % (Auto) 88.4 H Lymph % (Auto) 5.0 L [place] % (Auto) 6.3 Eos % (Auto) 0.1 Baso % (Auto) 0.2 Neut # (Auto) 6.5 Lymph # (Auto) 0.4 L [place] # (Auto) 0.5 Eos # (Auto) 0.0 Baso # (Auto) 0.0 WBC Differential . Differential Comment Auto diff final Sodium 141 Potassium 3.4 L Chloride 106 Carbon Dioxide 24.7 Anion Gap 10 BUN 8 Creatinine 0.90 Estimated GFR 83 L POC Glucose Random Glucose 118 H Calcium 7.3 L* Phosphorus 1.5 L D Magnesium 1.5 Total Bilirubin 0.8 Direct Bilirubin 0.3 H Indirect Bilirubin 0.5 AST 42 H ALT 34 Alkaline Phosphatase 100 B-Natriuretic Peptide Total Protein 6.6 Albumin 2.5 L 2.6 L Urine Color Urine Clarity Urine pH Ur Specific [place] Urine Protein Urine Glucose (UA) Urine Ketones Urine Occult Blood Urine Nitrate Urine Bilirubin Urine Urobilinogen Ur Leukocyte Esterase Urine RBC Urine WBC Ur Squamous Epith Cells Urine Mucus Ur Microscopic Review 01/04/18 01/04/18 01/04/18 05:05 09:30 11:42 WBC RBC Hgb Hct MCV MCH MCHC RDW Plt Count MPV Neut % (Auto) Lymph % (Auto) [place] % (Auto) Eos % (Auto) Baso % (Auto) Neut # (Auto) Lymph # (Auto) [place] # (Auto) Eos # (Auto) Baso # (Auto) WBC Differential Differential Comment Sodium Potassium Chloride Carbon Dioxide Anion Gap BUN Creatinine Estimated GFR POC Glucose 194 H Random Glucose Calcium Phosphorus Magnesium Total Bilirubin Direct Bilirubin Indirect Bilirubin AST ALT Alkaline Phosphatase B-Natriuretic Peptide 497 H Total Protein Albumin Urine Color Straw Urine Clarity Clear Urine pH 7.0 Ur Specific [place] 1.006 Urine Protein 30 H Urine Glucose (UA) Negative Urine Ketones Trace H Urine Occult Blood Small H Urine Nitrate Negative Urine Bilirubin Negative Urine Urobilinogen 2.0 H Ur Leukocyte Esterase Negative Urine RBC Less than 1 Urine WBC 1 Ur Squamous Epith Cells <1 Urine Mucus Few H Ur Microscopic Review Not Reportable Microbiology 01/01/18 14:10 Blood - Peripheral Aerobic Blood Culture - Preliminary No growth in 3 days 01/01/18 14:10 Blood - Peripheral Anaerobic Blood Culture - Preliminary No growth in 3 days 01/01/18 14:00 Blood - Peripheral Aerobic Blood Culture - Preliminary No growth in 3 days 01/01/18 14:00 Blood - Peripheral Anaerobic Blood Culture - Preliminary No growth in 3 days - Imaging Impressions Chest X-Ray 01/04/18 00:00 CONCLUSION: Significant deterioration appearance of the chest from 01/02/2008. Congestive failure would be consideration. Laboratory process right base would be consideration. Assessment and Plan - Assessment (1) Acute pyelonephritis Code(s): N10 - Acute pyelonephritis Status: Acute (2) Left nephrolithiasis Code(s): N20.0 - Calculus of kidney Status: Acute (3) Sepsis Code(s): A41.9 - Sepsis, unspecified organism Status: Acute (4) UTI (urinary tract infection) Code(s): N39.0 - Urinary tract infection, site not specified Status: Acute (5) Renal stone Code(s): N20.0 - Calculus of kidney Status: Acute (6) Thrombocytopenia Code(s): D69.6 - Thrombocytopenia, unspecified Status: Acute - Plan //Complicated UTI: //Sepsis = 01/02 U/a w/ UTI, +fever 102.2, continue w/ IV Abx, follow up cultures, IVF for hydration, monitor I/O. = 01/02. Patient with rigors. Heart rate 104, elevated temperature of 100.0. Fever 102 last night. Suspected sepsis. Will order stat labs. Switch antibiotics from ceftriaxone which patient has not received yet to Zosyn. = 01/03. Shaking and chills has resolved. Proteus pansensitive. Will switch to by mouth Levaquin. Patient appears to be very weak will await physical therapy recommendations. Appreciate assistance. Will need to follow-up with urology as outpatient = 01/04. Repeat fever. Chest x-ray with bilateral infiltrates. BNP mildly elevated in the 400s. Recent history has dysphasia. Will consult GI, swallow evaluation. //Hypokalemia. Potassium 2.9. Replace and monitor. //Hypertension. Blood pressures in the 150s today, improving. Will start back on home medications as warranted. Continue to monitor. //Renal Stone: CT Abd/Pelvis w/ 2mm left ureteral calculus w/ moderate hydronephrosis and hydroureter, images reviewed. Dr. Garcia consulted, recommended Flomax, no intervention as stone likely to pass on its own. Pt has upcoming bobby w/ [facility]rology [facility] on 01/11/18, follow up w/ Urology as scheduled. Analgesics/antiemetics as needed. IVF for hydration. = No intervention at this time. Appreciate urology assistance. Will need to follow-up with urology as outpatient. //Thrombocytopenia: Platelets 110, no previous labs for comparison, reports h/ o long-standing hematuria, possibly due to thrombocytopenia, recommend outpatient follow up, monitor for bleeding, repeat labs in am. = Follow-up repeat CBC. Platelets stable. No signs of bleeding. //DVT Prophylaxis: SCD/Teds Discharge Planning: Treatment for sepsis. Pending GI workup.
[2018-01-04] MEDS: Piperacil/Tazo 4.5 GM Premix 4.5 GM/100 ML BAG IV.SIG SCH ×2 (15:15→20:49)
--- NOTE | 2018-01-04 16:37 | P.CONGI ---
History of Present Illness Consult date: 01/04/18 Consult reason: Dysphasia Chief complaint: urosepsis obstructive Nephrolithiasis,AMS History of Present Illness: This is a 72-year-old male who came into the hospital on 01/01/2018 with altered mental status and fever according to the record patient was also positive for UTI. Patient also has significant history of prostate cancer 8-9 years ago and is currently noted to have fatigue as well as generalized weakness. Patient does note symptoms of dysphasia with some nausea and vomiting but is a poor historian and is unable to give me any onset of timing. Patient also notes some diarrhea since being in the hospital unknown for any melena stools. Currently patient has oxygen going at 3 L per nasal cannula but no obvious shortness of breath has now come into the room and is able to give a little more information about patient's current symptoms. She notes that patient chokes on medications and had problems with choking on his pills as recent as this a.m. she also notes a history of constipation alternated with some diarrhea off and on at home. Colonoscopy approximately 7 years ago at the [place] but unknown findings and no previous EGD ever done patient currently denies any abdominal pain and has no obvious symptoms of hematemesis or GI bleeding. Patient denies any dyspepsia symptoms but states he does wake up at times during the night with cough and possibly some shortness of breath. Current hemoglobin 13.6, platelet count seems to wax and wane but currently 106, INR 1.2 , bilirubin normal at 0.8, AST 42 ALT 34. BNP is noted to be 497 and patient is receiving some IV diuretics. Abdominal CT scan on 01/01/2018 unremarkable for any GI issues. Positive family history of colon cancer mom, and her older years. Gastroenterology was consulted for the dysphasia symptoms and to assist with the plan of care. <Beronica Jackson - Last Filed: 01/04/18 16:27> Review of Systems All other systems reviewed negative except as stated in HPI <Beronica Jackson - Last Filed: 01/04/18 16:27> PMFSH - History History Provided By: Patient, Family Member - Medical History Medical History: Medical History (Last Reviewed 01/04/18 @ 08:18 by [facility]) HTN (hypertension) High cholesterol - Surgical History Surgical History: Surgical History (Last Reviewed 01/04/18 @ 08:18 by [facility]) History of cataract surgery - Tobacco History Second Hand Smoke Exposure: No Tobacco Use In Past 30 Days: No Smoking Status: Former smoker Tobacco Type: Cigarettes - Alcohol History How Often Do You Have a Drink Containing Alcohol: Never - Substance Use History Substance History: No History of Abuse - Travel History Recent Travel in the [place] Within the Last 8 Weeks: No Recent Travel Out of the Country Within the Last 8 Weeks: No - Immunization History Tetanus Immunization: >5 Years Hx Influenza Vaccine This Season: No <Beronica Jackson - Last Filed: 01/04/18 16:27> - Medical History Medical History: Medical History (Last Reviewed 01/04/18 @ 08:18 by [facility]) HTN (hypertension) High cholesterol - Surgical History Surgical History: Surgical History (Last Reviewed 01/04/18 @ 08:18 by [facility]) History of cataract surgery <Issa Kenny - Last Filed: 01/04/18 17:11> Medications and Allergies Active Medications: Active Medications Acetaminophen (Tylenol) 650 mg PO Q4H PRN PRN Reason: FEVER Last Admin: 01/04/18 08:26 Dose: 650 mg Amlodipine Besylate (Norvasc) 10 mg PO DAILY [facility] Last Admin: 01/04/18 08:26 Dose: 10 mg Aspirin (Ecotrin) 81 mg PO DAILY [facility] Last Admin: 01/04/18 08:26 Dose: 81 mg Atorvastatin Calcium (Lipitor) 40 mg PO HS [facility] Last Admin: 01/03/18 21:54 Dose: 40 mg Baclofen (Lioresal) 30 mg PO TID [facility] Last Admin: 01/04/18 12:02 Dose: Not Given Bupropion HCl (Wellbutrin) 75 mg PO DAILY [facility] Last Admin: 01/04/18 08:25 Dose: 75 mg Clonidine HCl (Catapres) 0.4 mg PO DAILY [facility] Last Admin: 01/04/18 08:26 Dose: 0.4 mg Donepezil HCl (Aricept) 5 mg PO HS [facility] Last Admin: 01/03/18 21:54 Dose: 5 mg Gabapentin (Neurontin) 300 mg PO DAILY [facility] Last Admin: 01/04/18 08:24 Dose: 300 mg Piperacillin/Tazobactam/Dextrose (Zosyn 4.5 Gm Premix) 4.5 gm in 100 mls @ 200 mls/hr IV.SIG Q6H [facility] Last Infusion: 01/04/18 15:33 Dose: Infused Levofloxacin (Levaquin) 750 mg PO Q24H [facility] Last Admin: 01/04/18 11:47 Dose: 750 mg Lisinopril (Prinivil) 40 mg PO DAILY [facility] Last Admin: 01/04/18 08:25 Dose: 40 mg Morphine Sulfate (Morphine Inj) 2 mg IV.PUSH Q4H PRN PRN Reason: PAIN 6-10 Pantoprazole Sodium (Protonix Inj) 40 mg IV.PUSH Q12H [facility] Sertraline HCl (Zoloft) 100 mg PO DAILY [facility] Last Admin: 01/04/18 08:26 Dose: 100 mg Tamsulosin HCl (Flomax) 0.4 mg PO DAILY [facility] Last Admin: 01/04/18 08:26 Dose: 0.4 mg Trazodone HCl (Desyrel) 150 mg PO HS [facility] Last Admin: 01/03/18 21:54 Dose: 150 mg <Beronica Jackson M - Last Filed: 01/04/18 16:27> Active Medications: Active Medications Acetaminophen (Tylenol) 650 mg PO Q4H PRN PRN Reason: FEVER Last Admin: 01/04/18 08:26 Dose: 650 mg Amlodipine Besylate (Norvasc) 10 mg PO DAILY [facility] Last Admin: 01/04/18 08:26 Dose: 10 mg Aspirin (Ecotrin) 81 mg PO DAILY [facility] Last Admin: 01/04/18 08:26 Dose: 81 mg Atorvastatin Calcium (Lipitor) 40 mg PO HS [facility] Last Admin: 01/03/18 21:54 Dose: 40 mg Baclofen (Lioresal) 30 mg PO TID [facility] Last Admin: 01/04/18 12:02 Dose: Not Given Bupropion HCl (Wellbutrin) 75 mg PO DAILY [facility] Last Admin: 01/04/18 08:25 Dose: 75 mg Clonidine HCl (Catapres) 0.4 mg PO DAILY [facility] Last Admin: 01/04/18 08:26 Dose: 0.4 mg Donepezil HCl (Aricept) 5 mg PO HS [facility] Last Admin: 01/03/18 21:54 Dose: 5 mg Gabapentin (Neurontin) 300 mg PO DAILY [facility] Last Admin: 01/04/18 08:24 Dose: 300 mg Piperacillin/Tazobactam/Dextrose (Zosyn 4.5 Gm Premix) 4.5 gm in 100 mls @ 200 mls/hr IV.SIG Q6H [facility] Last Infusion: 01/04/18 15:33 Dose: Infused Levofloxacin (Levaquin) 750 mg PO Q24H [facility] Last Admin: 01/04/18 11:47 Dose: 750 mg Lisinopril (Prinivil) 40 mg PO DAILY [facility] Last Admin: 01/04/18 08:25 Dose: 40 mg Morphine Sulfate (Morphine Inj) 2 mg IV.PUSH Q4H PRN PRN Reason: PAIN 6-10 Pantoprazole Sodium (Protonix Inj) 40 mg IV.PUSH Q12HR [facility] Sertraline HCl (Zoloft) 100 mg PO DAILY [facility] Last Admin: 01/04/18 08:26 Dose: 100 mg Tamsulosin HCl (Flomax) 0.4 mg PO DAILY [facility] Last Admin: 01/04/18 08:26 Dose: 0.4 mg Trazodone HCl (Desyrel) 150 mg PO [facility] Last Admin: 01/03/18 21:54 Dose: 150 mg <Issa Kenny E - Last Filed: 01/04/18 17:11> Allergies Allergy/AdvReac Type Severity Reaction Status Date / Time No Known Allergies Allergy Verified 01/01/18 14:22 Home Medications Medication Instructions Recorded Confirmed Type acetaminophen [Tylenol] 650 mg PO TID 01/01/18 01/01/18 History amlodipine 10 mg PO DAILY 01/01/18 01/01/18 History aspirin 81 mg PO DAILY 01/01/18 01/01/18 History atorvastatin [Lipitor] 40 mg PO HS 01/01/18 01/01/18 History baclofen 30 mg PO TID 01/01/18 01/01/18 History bupropion HCl 75 mg PO DAILY 01/01/18 01/01/18 History clonidine HCl [Catapres] 0.4 mg PO DAILY 01/01/18 01/01/18 History cyanocobalamin (vitamin B-12) 1,000 mcg PO DAILY 01/01/18 01/01/18 History docusate sodium [Colace] 100 mg PO BID 01/01/18 01/01/18 History donepezil [Aricept] 5 mg PO 01/01/18 01/01/18 History ferrous sulfate 648 mg PO 4XW 01/01/18 01/01/18 History gabapentin 300 mg PO DAILY 01/01/18 01/01/18 History hydrochlorothiazide 25 mg PO DAILY 01/01/18 01/01/18 History lisinopril 40 mg PO DAILY 01/01/18 01/01/18 History meloxicam [Mobic] 15 mg PO DAILY 01/01/18 01/01/18 History omega 1-fan-nxh-fish oil [Fish Oil] 2,000 mg PO BID 01/01/18 01/01/18 History sertraline [Zoloft] 100 mg PO DAILY 01/01/18 01/01/18 History trazodone 150 mg PO HS 01/01/18 01/01/18 History Exam Vital signs: Vital Signs 01/03/18 20:00 01/03/18 23:55 01/04/18 01:49 Temperature 99.1 F 98 F Pulse Rate 70 98 H 88 Respiratory Rate 16 18 18 Blood Pressure 137/60 163/73 H 169/76 H Pulse Oximetry 94 L 94 L 94 L 01/04/18 04:00 01/04/18 08:00 01/04/18 09:00 Temperature 100.7 F H 100.9 F H Pulse Rate 101 H 88 89 Respiratory Rate 20 20 Blood Pressure 173/77 H 154/71 H Pulse Oximetry 92 L 91 L 01/04/18 09:30 01/04/18 12:00 Temperature 99.4 F 97.6 F Pulse Rate 52 L Respiratory Rate 20 Blood Pressure 100/56 L Pulse Oximetry 94 L Intake & Output 01/03/18 01/04/18 01/04/18 18:59 06:59 18:59 Intake Total 3501 / 3501 1400 / 1400 100 / 100 Output Total 800 / 800 Balance 3501 / 3501 600 / 600 100 / 100 Weight 80.5 kg Intake: IV 2301 / 2301 1000 / 1000 100 / 100 NS + KCl 20 mEq Inj 1,000 ML @ 2000 / 2000 1000 / 1000 125 mls/hr IV.CONT .Q8H [facility] Rx# :[id number] Zosyn 4.5 GM Premix 4.5 gm In 100 / 100 100 ml @ 200 mls/hr IV.SIG Q6H [facility] Rx#:[id number] KCl 20 mEq Premix Inj 20 meq In 200 / 200 100 ml @ 50 mls/hr IV.SIG Q2H [facility] Rx#:[id number] Potassium Phosphate Inj 15 MMOL 0 / 0 In NS Inj 150 ML @ 38.75 mls/ hr IV.SIG ONCE ONE Rx#:[id number] Thiamine Inj 100 MG In NS Inj 101 / 101 100 ML @ 100 mls/hr IV.SIG ONCE ONE Rx#:[id number] Oral 1200 / 1200 400 / 400 Output: Urine 800 / 800 Other: # Voids 5 # Bowel Movements 2 - Constitutional mild distress, obese, chronically ill appearing (Speaks slow and answers only simple questions, poor historian), somnolent - Routine HEENT Exam Head: Present: normocephalic ENT: Present: mucous membranes dry (Pale) - Routine Neck Exam Present: supple - Routine Respiratory Exam Present: accessory muscle use (Low volumes but no obvious wheezing or rhonchi), decreased breath sounds (Oxygen O2 at 3 L nasal cannula) - Routine Cardiovascular Exam Present: S1, S2 - Routine Abdominal Exam Present: soft, normoactive bowel sounds, tenderness (Round, no obvious tenderness or distention or abdominal pain) - Routine Skin Exam Present: intact - Routine Neurological Exam Present: alert (Awake appears fatigued) <Beronica Jackson - Last Filed: 01/04/18 16:27> Vital signs: Vital Signs 01/03/18 20:00 01/03/18 23:55 01/04/18 01:49 Temperature 99.1 F 98 F Pulse Rate 70 98 H 88 Respiratory Rate 16 18 18 Blood Pressure 137/60 163/73 H 169/76 H Pulse Oximetry 94 L 94 L 94 L 01/04/18 04:00 01/04/18 08:00 01/04/18 09:00 Temperature 100.7 F H 100.9 F H Pulse Rate 101 H 88 89 Respiratory Rate 20 20 Blood Pressure 173/77 H 154/71 H Pulse Oximetry 92 L 91 L 01/04/18 09:30 01/04/18 12:00 Temperature 99.4 F 97.6 F Pulse Rate 52 L Respiratory Rate 20 Blood Pressure 100/56 L Pulse Oximetry 94 L Intake & Output 01/03/18 01/04/18 01/04/18 18:59 06:59 18:59 Intake Total 3501 / 3501 1400 / 1400 100 / 100 Output Total 800 / 800 Balance 3501 / 3501 600 / 600 100 / 100 Weight 80.5 kg Intake: IV 2301 / 2301 1000 / 1000 100 / 100 NS + KCl 20 mEq Inj 1,000 ML @ 2000 / 2000 1000 / 1000 125 mls/hr IV.CONT .Q8H [facility] Rx# :[id number] Zosyn 4.5 GM Premix 4.5 gm In 100 / 100 100 ml @ 200 mls/hr IV.SIG Q6H [facility] Rx#:[id number] KCl 20 mEq Premix Inj 20 meq In 200 / 200 100 ml @ 50 mls/hr IV.SIG Q2H [facility] Rx#:[id number] Potassium Phosphate Inj 15 MMOL 0 / 0 In NS Inj 150 ML @ 38.75 mls/ hr IV.SIG ONCE ONE Rx#:[id number] Thiamine Inj 100 MG In NS Inj 101 / 101 100 ML @ 100 mls/hr IV.SIG ONCE ONE Rx#:[id number] Oral 1200 / 1200 400 / 400 Output: Urine 800 / 800 Other: # Voids 5 # Bowel Movements 2 <Issa Kenny E - Last Filed: 01/04/18 17:11> Results - Labs CBC & Chem 7: 01/04/18 05:05 01/04/18 05:05 Labs: Laboratory Results - last 24 hr 01/04/18 01/04/18 01/04/18 05:05 05:05 05:05 WBC 7.4 RBC 4.54 Hgb 13.6 Hct 39.3 MCV 86.6 MCH 29.9 MCHC 34.6 RDW 14.1 Plt Count 106 L MPV 8.1 Neut % (Auto) 88.4 H Lymph % (Auto) 5.0 L Talbot % (Auto) 6.3 Eos % (Auto) 0.1 Baso % (Auto) 0.2 Neut # (Auto) 6.5 Lymph # (Auto) 0.4 L Talbot # (Auto) 0.5 Eos # (Auto) 0.0 Baso # (Auto) 0.0 WBC Differential . Differential Comment Auto diff final Sodium 141 Potassium 3.4 L Chloride 106 Carbon Dioxide 24.7 Anion Gap 10 BUN 8 Creatinine 0.90 Estimated GFR 83 L POC Glucose Random Glucose 118 H Calcium 7.3 L* Phosphorus 1.5 L D Magnesium 1.5 Total Bilirubin 0.8 Direct Bilirubin 0.3 H Indirect Bilirubin 0.5 AST 42 H ALT 34 Alkaline Phosphatase 100 B-Natriuretic Peptide Total Protein 6.6 Albumin 2.5 L 2.6 L Urine Color Urine Clarity Urine pH Ur Specific Bull[place] Urine Protein Urine Glucose (UA) Urine Ketones Urine Occult Blood Urine Nitrate Urine Bilirubin Urine Urobilinogen Ur Leukocyte Esterase Urine RBC Urine WBC Ur Squamous Epith Cells Urine Mucus Ur Microscopic Review 01/04/18 01/04/18 01/04/18 05:05 09:30 11:42 WBC RBC Hgb Hct MCV MCH MCHC RDW Plt Count MPV Neut % (Auto) Lymph % (Auto) Talbot % (Auto) Eos % (Auto) Baso % (Auto) Neut # (Auto) Lymph # (Auto) Talbot # (Auto) Eos # (Auto) Baso # (Auto) WBC Differential Differential Comment Sodium Potassium Chloride Carbon Dioxide Anion Gap BUN Creatinine Estimated GFR POC Glucose 194 H Random Glucose Calcium Phosphorus Magnesium Total Bilirubin Direct Bilirubin Indirect Bilirubin AST ALT Alkaline Phosphatase B-Natriuretic Peptide 497 H Total Protein Albumin Urine Color Straw Urine Clarity Clear Urine pH 7.0 Ur Specific [place] 1.006 Urine Protein 30 H Urine Glucose (UA) Negative Urine Ketones Trace H Urine Occult Blood Small H Urine Nitrate Negative Urine Bilirubin Negative Urine Urobilinogen 2.0 H Ur Leukocyte Esterase Negative Urine RBC Less than 1 Urine WBC 1 Ur Squamous Epith Cells <1 Urine Mucus Few H Ur Microscopic Review Not Reportable - Imaging Impressions Chest X-Ray 01/04/18 00:00 CONCLUSION: Significant deterioration appearance of the chest from 01/02/2008. Congestive failure would be consideration. Laboratory process right base would be consideration. <Beronica Jackson - Last Filed: 01/04/18 16:27> - Labs CBC & Chem 7: 01/04/18 05:05 01/04/18 05:05 Labs: Laboratory Results - last 24 hr 01/04/18 01/04/18 01/04/18 05:05 05:05 05:05 WBC 7.4 RBC 4.54 Hgb 13.6 Hct 39.3 MCV 86.6 MCH 29.9 MCHC 34.6 RDW 14.1 Plt Count 106 L MPV 8.1 Neut % (Auto) 88.4 H Lymph % (Auto) 5.0 L Talbot % (Auto) 6.3 Eos % (Auto) 0.1 Baso % (Auto) 0.2 Neut # (Auto) 6.5 Lymph # (Auto) 0.4 L Talbot # (Auto) 0.5 Eos # (Auto) 0.0 Baso # (Auto) 0.0 WBC Differential . Differential Comment Auto diff final Sodium 141 Potassium 3.4 L Chloride 106 Carbon Dioxide 24.7 Anion Gap 10 BUN 8 Creatinine 0.90 Estimated GFR 83 L POC Glucose Random Glucose 118 H Calcium 7.3 L* Phosphorus 1.5 L D Magnesium 1.5 Total Bilirubin 0.8 Direct Bilirubin 0.3 H Indirect Bilirubin 0.5 AST 42 H ALT 34 Alkaline Phosphatase 100 B-Natriuretic Peptide Total Protein 6.6 Albumin 2.5 L 2.6 L Urine Color Urine Clarity Urine pH Ur Specific [place] Urine Protein Urine Glucose (UA) Urine Ketones Urine Occult Blood Urine Nitrate Urine Bilirubin Urine Urobilinogen Ur Leukocyte Esterase Urine RBC Urine WBC Ur Squamous Epith Cells Urine Mucus Ur Microscopic Review 01/04/18 01/04/18 01/04/18 05:05 09:30 11:42 WBC RBC Hgb Hct MCV MCH MCHC RDW Plt Count MPV Neut % (Auto) Lymph % (Auto) Talbot % (Auto) Eos % (Auto) Baso % (Auto) Neut # (Auto) Lymph # (Auto) Talbot # (Auto) Eos # (Auto) Baso # (Auto) WBC Differential Differential Comment Sodium Potassium Chloride Carbon Dioxide Anion Gap BUN Creatinine Estimated GFR POC Glucose 194 H Random Glucose Calcium Phosphorus Magnesium Total Bilirubin Direct Bilirubin Indirect Bilirubin AST ALT Alkaline Phosphatase B-Natriuretic Peptide 497 H Total Protein Albumin Urine Color Straw Urine Clarity Clear Urine pH 7.0 Ur Specific [place] 1.006 Urine Protein 30 H Urine Glucose (UA) Negative Urine Ketones Trace H Urine Occult Blood Small H Urine Nitrate Negative Urine Bilirubin Negative Urine Urobilinogen 2.0 H Ur Leukocyte Esterase Negative Urine RBC Less than 1 Urine WBC 1 Ur Squamous Epith Cells <1 Urine Mucus Few H Ur Microscopic Review Not Reportable - Imaging Impressions Chest X-Ray 01/04/18 00:00 CONCLUSION: Significant deterioration appearance of the chest from 01/02/2008. Congestive failure would be consideration. Laboratory process right base would be consideration. <Issa Kenny E - Last Filed: 01/04/18 17:11> Assessment and Plan - Plan 72-year-old male who came into the hospital on 01/01/2018 with altered mental status and fever according to the record patient was also positive for UTI. Patient also has significant history of prostate cancer 8-9 years ago and is currently noted to have fatigue as well as generalized weakness. Patient does note symptoms of dysphasia with some nausea and vomiting but is a poor historian and is unable to give me any onset of timing. Patient also notes some diarrhea since being in the hospital unknown for any melena stools. Currently patient has oxygen going at 3 L per nasal cannula but no obvious shortness of breath has now come into the room and is able to give a little more information about patient's current symptoms. She notes that patient chokes on medications and had problems with choking on his pills as recent as this a.m. she also notes a history of constipation alternated with some diarrhea off and on at home. Colonoscopy approximately 7 years ago at the [place] but unknown findings and no previous EGD ever done patient currently denies any abdominal pain and has no obvious symptoms of hematemesis or GI bleeding. Patient denies any dyspepsia symptoms but states he does wake up at times during the night with cough and possibly some shortness of breath. Current hemoglobin 13.6, platelet count seems to wax and wane but currently 106, INR 1.2 , bilirubin normal at 0.8, AST 42 ALT 34. BNP is noted to be 497 and patient is receiving some IV diuretics. Abdominal CT scan on 01/01/2018 unremarkable for any GI issues. Positive family history of colon cancer mom and her older years unknown age. Gastroenterology was consulted for the dysphasia symptoms and to assist with the plan of care. Dysphasia, unknown timing of symptoms but and patient states happening for an extended period of time before hospital stay symptoms do appear to be worsening patient had mild choking episodes this morning on his medications. also states that he struggles with meat, rice, Weakness and fatigue, history of prostate cancer 8-9 years ago Nausea some vomiting initially on admission but does not appear to be any now Plan Diet changed to full liquids soft foods Consent for EGD with dilatation in a.m. procedure explained to and N.p.o. at midnight PPI 40 mg IV every 12 initiated Bowel regimen as needed Reflux precautions encourage patient to eat slowly and chew slowly use oral hydration when eating and prop up head of bed when sleeping Further recommendations to follow Supportive care Patient was seen per myself and Dr. Kenny, note was written on his behalf <Beronica Jackson M - Last Filed: 01/04/18 16:27> - Plan Patient seen and examined Agree with above Continue with current supportive care Monitor labs Plan on an EGD tomorrow with possible dilation <Issa Kenny - Last Filed: 01/04/18 17:11>
[2018-01-04] MEDS: Pantoprazole Inj 40 MG Vial IV.PUSH SCH (17:31)
[2018-01-04] MEDS: traZODone 50 MG Tablet PO SCH (20:49)
[2018-01-05] MEDS: Piperacil/Tazo 4.5 GM Premix 4.5 GM/100 ML BAG IV.SIG SCH ×4 (03:16→21:12)
[2018-01-05 08:46] LABS: White Blood Count 6.2 th/mm3 (4.0-11.0)
[2018-01-05 08:47] LABS: Baso % (Auto) 0.3 % (0.0-2.0); Eos % (Auto) 0.1 % (0.0-4.0); Hematocrit 36.1 % (39.0-51.0); Hemoglobin 12.4 gm/dL (13.0-17.0); Lymph # (Auto) 0.5 th/mm3 (1.0-4.8); Lymph % (Auto) 8.5 % (9.0-44.0); Mean Corpuscular HGB Conc 34.5 % (32.0-36.0); Mean Corpuscular Hemoglobin 29.5 pg (27.0-34.0); Mean Corpuscular Volume 85.7 fL (80.0-100.0); Mean Platelet Volume 8.2 fL (7.0-11.0); Mono # (Auto) 0.4 th/mm3 (0.0-0.9); Mono % (Auto) 7.1 % (0.0-8.0); Neut # (Auto) 5.2 th/mm3 (1.8-7.7); Platelet Count 125 th/mm3 (150-450); Red Blood Count 4.21 mil/mm3 (4.50-5.90); Red Cell Distribution Width 14.1 % (11.6-17.2)
[2018-01-05 09:10] LABS: Albumin 2.4 g/dL (3.4-5.0); Calcium 7.6 mg/dL (8.5-10.1); Carbon Dioxide 25.5 meq/L (21.0-32.0); Magnesium 1.5 mg/dL (1.5-2.5); Potassium 3.3 meq/L (3.5-5.1)
[2018-01-05 09:13] LABS: Phosphorus 2.7 mg/dL (2.5-4.9)
[2018-01-05] MEDS: Lisinopril 20 MG Tablet PO SCH (09:50)
[2018-01-05] MEDS: amLODIPine 10 MG Tablet PO SCH (09:51)
[2018-01-05] MEDS ORDERED: Chlorhexidine Gluconate 2% 1 Pack (2 Cloths) TOPICAL ONE (10:53)
[2018-01-05] MEDS ORDERED: Metoprolol Tartrate 25 MG Tablet PO ONE (10:53)
[2018-01-05] MEDS ORDERED: Sodium Chlor 0.9% Inj 500 ML IV.SIG SCH (11:00)
[2018-01-05] MEDS ORDERED: Lidocaine PF 1% Inj 5 ML Syringe OTHER ONE (11:30)
--- NOTE | 2018-01-05 11:57 | P.PCN ---
Date of procedure: 01/05/18 Pre-op diagnosis: Dysphagia Procedure: PROCEDURE PERFORMED EGD with biopsy PROCEDURE: The procedure, risks and benefits were discussed with Patient/POA and informed consent was obtained. Anesthesia sedated Patient with Diprivan. Patient was placed in the left lateral decubitus position. EGD: The Pentax videoscope was introduced through the oropharynx and advanced to the second portion of the duodenum under direct visualization. Retroflexion was performed in the stomach. FINDINGS: The esophagus there was an irregular Z line this was biopsied otherwise the esophageal mucosa was unremarkable and within normal limits with no obvious strictures noted The stomach there was quite a bit of edema with erythema in the gastric body and antrum there was also a small ulceration in the gastric body with no visible vessel the ulcer and the antrum were both biopsied The duodenum this was unremarkable with normal limits ESTIMATED BLOOD LOSS: None SPECIMENS REMOVED: Gastric biopsies and esophageal biopsies COMPLICATIONS: None IMPRESSION: Irregular Z line Gastric ulcer Gastritis PLAN: Await biopsies Avoid NSAIDs and aspirin Protonix 40 mg twice daily EGD in 2 months Advance diet as tolerated Anesthesia: MAC Condition: stable Disposition: floor
[2018-01-05] MEDS: Baclofen 10 MG Tablet PO SCH ×3 (12:57→19:04)
[2018-01-05] MEDS: Pantoprazole Inj 40 MG Vial IV.PUSH SCH ×2 (13:09→21:24)
--- NOTE | 2018-01-05 15:01 | FL ---
EXAM DATE: 01/05/2018 12:00 AM EDT AGE/SEX: 72 years / Male INDICATIONS: Dysphagia. CLINICAL DATA: This is the patient's initial encounter. Patient reports that signs and symptoms have been present for 1 day and indicates a pain score of 3/10. MEDICAL/SURGICAL HISTORY: Hypertension. None. COMPARISON: No prior exams available for comparison. FLUORO TIME: 0.8 IMAGE COUNT: 0 FINDINGS: A modified barium swallow was performed with speech pathology. Patient was given a variety of liquids to swallow. There is no evidence of aspiration or vestibular penetration. For a full detailed report, see report by the speech pathologist. CONCLUSION: Negative modified barium swallow. Electronically signed by: Bill Dacosta MD 01/05/2018 3:00 PM EDT
--- NOTE | 2018-01-05 16:25 | ECHRPT ---
Indication: Heart failure, unspecified CONCLUSIONS The left ventricular systolic function is normal with an estimated ejection fraction in the range of 60-65%. Wall thickness is normal. Normal left ventricular size. There is moderate tricuspid regurgitation. The estimated pulmonary arterial pressure is 36.5 mmHg. BP: / HR: Rhythm: Sinus MEASUREMENTS (Male / Female) Normal Values Technical Quality:Fair 2D ECHO LV Diastolic Diameter PLAX 5.3 cm 4.2 - 5.9 / 3.9 - 5.3 cm LV Systolic Diameter PLAX 3.7 cm IVS Diastolic Thickness 1.0 cm 0.6 - 1.0 / 0.6 - 0.9 cm LVPW Diastolic Thickness 1.0 cm 0.6 - 1.0 / 0.6 - 0.9 cm LV Relative Wall Thickness 0.4 LVOT Diameter 1.7 cm M-MODE Aortic Root Diameter MM 3.0 cm LA Systolic Diameter MM 3.7 cm LA Ao Ratio MM 1.2 AV Cusp Separation MM 2.1 cm DOPPLER AV Peak Velocity 170.0 cm/s AV Peak Gradient 11.6 mmHg LVOT Peak Velocity 116.0 cm/s LVOT Peak Gradient 5.4 mmHg AV Area Cont Eq pk 1.5 cm Mitral E Point Velocity 99.2 cm/s Mitral A Point Velocity 95.8 cm/s Mitral E to A Ratio 1.0 LV E' Septal Velocity 8.2 cm/s Mitral E to LV E' Septal Ratio 12.1 TR Peak Velocity 257.5 cm/s TR Peak Gradient 26.5 mmHg Right Atrial Pressure 10.0 mmHg Pulmonary Artery Systolic Pressu 36.5 mmHg Right Ventricular Systolic Press 36.5 mmHg PV Peak Velocity 121.0 cm/s PV Peak Gradient 5.9 mmHg FINDINGS LEFT VENTRICLE The left ventricular systolic function is normal with an estimated ejection fraction in the range of 60-65%. Wall thickness is normal. Normal left ventricular size. RIGHT VENTRICLE Normal right ventricular size and systolic function. LEFT ATRIUM The left atrial size is normal. RIGHT ATRIUM The right atrial size is normal. ATRIAL SEPTUM Normal atrial septal thickness without atrial level shunting by limited color doppler interrogation. AORTA The aortic root and proximal ascending aorta are normal in size on limited imaging. MITRAL VALVE Structurally normal mitral valve. No mitral valve stenosis or regurgitation. AORTIC VALVE Trileaflet aortic valve. No aortic valve stenosis or regurgitation. TRICUSPID VALVE There is moderate tricuspid regurgitation. The estimated pulmonary arterial pressure is 36.5 mmHg. PULMONARY VALVE No pulmonary valve regurgitation or stenosis. VESSELS The inferior vena cava is normal in size. PERICARDIUM No pericardial effusion. Brandon Larsen MD, FACC (Electronically Signed) Final Date:05 January 2018 16:24
[2018-01-05] MEDS: Gabapentin 300 MG Capsule PO SCH (16:30)
[2018-01-05] MEDS: Sertraline 100 MG Tablet PO SCH (16:31)
[2018-01-05] MEDS: levoFLOXacin 750 MG Tablet PO SCH (16:31)
[2018-01-05] MEDS: buPROPion 75 MG Tablet PO SCH (16:31)
--- NOTE | 2018-01-05 18:14 | P.PNIM ---
Subjective Interval history: Patient says he feeling alright. Denies any chest pain or shortness of breath. Physical Exam Vital signs: Vital Signs 01/04/18 18:00 01/04/18 20:00 01/05/18 00:00 Temperature 98.1 F 98.0 F Pulse Rate 67 75 88 Respiratory Rate 19 18 Blood Pressure 157/69 H 136/78 Pulse Oximetry 92 L 97 01/05/18 04:00 01/05/18 07:00 01/05/18 09:00 Temperature 98.9 F 98.4 F Pulse Rate 82 75 70 Respiratory Rate 19 16 Blood Pressure 153/61 H 168/74 H Pulse Oximetry 93 L 01/05/18 10:30 01/05/18 11:58 01/05/18 12:00 Temperature 98.7 F Pulse Rate 78 72 Respiratory Rate 20 21 Blood Pressure 129/98 H 145/67 H Pulse Oximetry 94 L 94 L 94 L 01/05/18 12:15 01/05/18 12:20 01/05/18 12:24 Temperature 98.7 F Pulse Rate 76 81 Respiratory Rate 19 14 Blood Pressure 143/74 H 151/69 H Pulse Oximetry 97 94 L 93 L 01/05/18 16:00 Temperature 98.4 F Pulse Rate 95 H Respiratory Rate 22 Blood Pressure 156/69 H Pulse Oximetry 90 L Intake & Output 01/04/18 01/05/18 01/05/18 18:59 06:59 18:59 Intake Total 735 / 735 200 / 200 400 / 400 Output Total 1250 / 1250 600 / 600 Balance 735 / 735 -1050 / -1050 -200 / -200 Weight 81.3 kg Intake: IV 255 / 255 200 / 200 0 / 0 Zosyn 4.5 GM Premix 4.5 gm In 100 / 100 200 / 200 0 / 0 100 ml @ 200 mls/hr IV.SIG Q6H [facility] Rx#:[id number] Potassium Phosphate Inj 15 MMOL 155 / 155 In NS Inj 150 ML @ 38.75 mls/ hr IV.SIG ONCE ONE Rx#:[id number] Oral 480 / 480 0 / 0 0 / 0 Anesthesia Amount 400 / 400 Output: Urine 1250 / 1250 600 / 600 Other: Date of Last Bowel Movement 01/03/18 Narrative: GENERAL: Patient sitting up in bed. Appears comfortable. SKIN: Warm and dry. HEAD: Normocephalic. EYES: No scleral icterus. No injection or drainage. NECK: Supple, trachea midline. No JVD. CARDIOVASCULAR: Regular rate and rhythm without murmurs, gallops, or rubs. RESPIRATORY: Breath sounds equal bilaterally. No accessory muscle use. GASTROINTESTINAL: Abdomen soft, non-tender, nondistended. MUSCULOSKELETAL: No cyanosis, or edema. BACK: Nontender without obvious deformity. No CVA tenderness. - Urinary Catheter Management Condom Cath placed during this visit: no Reason for continuing: Not indwelling catheter Results - Labs CBC & Chem 7: 01/05/18 07:18 01/05/18 07:18 Laboratory Results - last 24 hr 01/05/18 01/05/18 07:18 07:18 WBC 6.2 RBC 4.21 L Hgb 12.4 L Hct 36.1 L MCV 85.7 MCH 29.5 MCHC 34.5 RDW 14.1 Plt Count 125 L MPV 8.2 Neut % (Auto) 84.0 H Lymph % (Auto) 8.5 L Haakon % (Auto) 7.1 Eos % (Auto) 0.1 Baso % (Auto) 0.3 Neut # (Auto) 5.2 Lymph # (Auto) 0.5 L Haakon # (Auto) 0.4 Eos # (Auto) 0.0 Baso # (Auto) 0.0 WBC Differential . Differential Comment Auto diff final Sodium 141 Potassium 3.3 L Chloride 105 Carbon Dioxide 25.5 Anion Gap 11 BUN 8 Creatinine 1.00 Estimated GFR 74 L Random Glucose 100 Calcium 7.6 L Phosphorus 2.7 D Magnesium 1.5 Albumin 2.4 L Microbiology 01/04/18 11:22 Blood - Peripheral Aerobic Blood Culture - Preliminary No growth in 1 day 01/04/18 11:22 Blood - Peripheral Anaerobic Blood Culture - Preliminary No growth in 1 day 01/04/18 11:34 Blood - Peripheral Aerobic Blood Culture - Preliminary No growth in 1 day 01/04/18 11:34 Blood - Peripheral Anaerobic Blood Culture - Preliminary No growth in 1 day 01/01/18 14:10 Blood - Peripheral Aerobic Blood Culture - Preliminary No growth in 4 days 01/01/18 14:10 Blood - Peripheral Anaerobic Blood Culture - Preliminary No growth in 4 days 01/01/18 14:00 Blood - Peripheral Aerobic Blood Culture - Preliminary No growth in 4 days 01/01/18 14:00 Blood - Peripheral Anaerobic Blood Culture - Preliminary No growth in 4 days - Imaging Impressions Videofluoroscopic Swallow 01/05/18 00:00 CONCLUSION: Negative modified barium swallow. Assessment and Plan - Assessment (1) Acute pyelonephritis Code(s): N10 - Acute pyelonephritis Status: Acute (2) Left nephrolithiasis Code(s): N20.0 - Calculus of kidney Status: Acute (3) Sepsis Code(s): A41.9 - Sepsis, unspecified organism Status: Acute (4) UTI (urinary tract infection) Code(s): N39.0 - Urinary tract infection, site not specified Status: Acute (5) Renal stone Code(s): N20.0 - Calculus of kidney Status: Acute (6) Thrombocytopenia Code(s): D69.6 - Thrombocytopenia, unspecified Status: Acute - Plan //Complicated UTI: //Sepsis = 01/02 U/a w/ UTI, +fever 102.2, continue w/ IV Abx, follow up cultures, IVF for hydration, monitor I/O. = 01/02. Patient with rigors. Heart rate 104, elevated temperature of 100.0. Fever 102 last night. Suspected sepsis. Will order stat labs. Switch antibiotics from ceftriaxone which patient has not received yet to Zosyn. = 01/03. Shaking and chills has resolved. Proteus pansensitive. Will switch to by mouth Levaquin. Patient appears to be very weak will await physical therapy recommendations. Appreciate assistance. Will need to follow-up with urology as outpatient = 01/04. Repeat fever. Chest x-ray with bilateral infiltrates. BNP mildly elevated in the 400s. Recent history has dysphasia. Will consult GI, swallow evaluation. = 01/05. Aspiration workup so far is negative. Pending official speech evaluation. Continue IV antibiotics as per infectious disease hopefully can go home in the next few days. //Dysphasia. Status post EGD, barium swallow without obvious cause of dysphasia. Pending official speech evaluation. Appreciate assistance. //Peptic ulcer EGD performed on 01/05 with peptic ulcer. Will continue on PPI. Appreciate GI assistance. //pulmonary edema on chest x-ray 01/04. BNP was elevated in the 400s. Echocardiogram with ejection fraction normal. Moderate tricuspid regurgitation. Likely secondary to iatrogenic IV fluids. Will monitor fluid status. //Hypokalemia. Potassium 2.9. Replace and monitor. = 01/05. Potassium 3.3. Monitor. //Hypertension. Blood pressures in the 150s today, improving. Will start back on home medications as warranted. Continue to monitor. = 01/05 blood pressure is improved today. //Renal Stone: CT Abd/Pelvis w/ 2mm left ureteral calculus w/ moderate hydronephrosis and hydroureter, images reviewed. Dr. Garcia consulted, recommended Flomax, no intervention as stone likely to pass on its own. Pt has upcoming bobby w/ Urology at the [facility] on 01/11/18, follow up w/ Urology as scheduled. Analgesics/antiemetics as needed. IVF for hydration. = No intervention at this time. Appreciate urology assistance. Will need to follow-up with urology as outpatient. //Thrombocytopenia: Platelets 110, no previous labs for comparison, reports h/ o long-standing hematuria, possibly due to thrombocytopenia, recommend outpatient follow up, monitor for bleeding, repeat labs in am. = Follow-up repeat CBC. Platelets stable. No signs of bleeding. = 01/05. Platelets 125. No signs of bleeding. //DVT Prophylaxis: SCD/Teds Discharge Planning: Treatment for sepsis. Pending GI workup.
[2018-01-05] MEDS: traZODone 50 MG Tablet PO SCH (21:13)
[2018-01-06] MEDS: Piperacil/Tazo 4.5 GM Premix 4.5 GM/100 ML BAG IV.SIG SCH ×4 (04:30→22:16)
[2018-01-06 07:20] LABS: Hematocrit 36.7 % (39.0-51.0); Hemoglobin 12.7 gm/dL (13.0-17.0); Mean Corpuscular HGB Conc 34.6 % (32.0-36.0); Mean Corpuscular Hemoglobin 29.6 pg (27.0-34.0); Mean Corpuscular Volume 85.6 fL (80.0-100.0); Mean Platelet Volume 7.4 fL (7.0-11.0); Platelet Count 143 th/mm3 (150-450); Red Blood Count 4.29 mil/mm3 (4.50-5.90); Red Cell Distribution Width 14.2 % (11.6-17.2); White Blood Count 7.3 th/mm3 (4.0-11.0)
[2018-01-06] MEDS: Pantoprazole Inj 40 MG Vial IV.PUSH SCH ×2 (08:25→22:14)
[2018-01-06] MEDS: buPROPion 75 MG Tablet PO SCH (08:25)
[2018-01-06] MEDS: Lisinopril 20 MG Tablet PO SCH (08:25)
[2018-01-06] MEDS: amLODIPine 10 MG Tablet PO SCH (08:25)
[2018-01-06] MEDS: Baclofen 10 MG Tablet PO SCH ×3 (08:26→17:24)
[2018-01-06] MEDS: Gabapentin 300 MG Capsule PO SCH (08:26)
[2018-01-06] MEDS: Sertraline 100 MG Tablet PO SCH (08:26)
--- NOTE | 2018-01-06 09:52 | P.PNIM ---
Subjective Interval history: Patient says he is feeling all right. Denies any chest pain shortness of breath. Reports constant left lower quadrant abdominal pain. Denies any dysuria. Denies any flank pain. Had a bowel movement which was soft. Physical Exam Vital signs: Vital Signs 01/05/18 10:30 01/05/18 11:58 01/05/18 12:00 Temperature 98.7 F Pulse Rate 78 75 Respiratory Rate 20 21 Blood Pressure 129/98 H 145/67 H Pulse Oximetry 94 L 94 L 94 L 01/05/18 12:15 01/05/18 12:20 01/05/18 12:24 Temperature 98.7 F Pulse Rate 76 81 Respiratory Rate 19 14 Blood Pressure 143/74 H 151/69 H Pulse Oximetry 97 94 L 93 L 01/05/18 16:00 01/05/18 20:00 01/06/18 00:00 Temperature 98.4 F 99.2 F 99.7 F H Pulse Rate 97 H 84 98 H Respiratory Rate 22 20 18 Blood Pressure 156/69 H 158/70 H 189/89 H Pulse Oximetry 90 L 91 L 90 L 01/06/18 04:00 01/06/18 06:00 01/06/18 08:00 Temperature 98.8 F 100.1 F H Pulse Rate 92 H 93 H Respiratory Rate 18 18 17 Blood Pressure 130/76 171/83 H Pulse Oximetry 90 L 93 L Intake & Output 01/05/18 01/06/18 01/06/18 18:59 06:59 18:59 Intake Total 400 / 400 600 / 600 200 / 200 Output Total 1625 / 1625 900 / 900 Balance -1225 / -1225 -300 / -300 200 / 200 Weight 81.3 kg Intake: IV 0 / 0 200 / 200 200 / 200 Zosyn 4.5 GM Premix 4.5 gm In 0 / 0 200 / 200 200 / 200 100 ml @ 200 mls/hr IV.SIG Q6H [facility] Rx#:[id number] Oral 0 / 0 0 / 0 Anesthesia Amount 400 / 400 400 / 400 Output: Urine 1625 / 1625 900 / 900 Other: Date of Last Bowel Movement 01/03/18 01/03/18 01/06/18 # Bowel Movements 2 1 Narrative: GENERAL: Patient sitting up in bed. Appears comfortable. Alert and oriented x3. SKIN: Warm and dry. HEAD: Normocephalic. EYES: No scleral icterus. No injection or drainage. NECK: Supple, trachea midline. No JVD. CARDIOVASCULAR: Regular rate and rhythm without murmurs, gallops, or rubs. RESPIRATORY: Breath sounds equal bilaterally. No accessory muscle use. GASTROINTESTINAL: Abdomen soft, non-tender, nondistended. No rebound or guarding. MUSCULOSKELETAL: No cyanosis, or edema. BACK: Nontender without obvious deformity. No CVA tenderness. - Urinary Catheter Management Condom Cath placed during this visit: no Reason for continuing: Not indwelling catheter Results - Labs CBC & Chem 7: 01/06/18 06:51 01/05/18 07:18 Laboratory Results - last 24 hr 01/06/18 06:51 WBC 7.3 RBC 4.29 L Hgb 12.7 L Hct 36.7 L MCV 85.6 MCH 29.6 MCHC 34.6 RDW 14.2 Plt Count 143 L MPV 7.4 Microbiology 01/04/18 11:22 Blood - Peripheral Aerobic Blood Culture - Preliminary No growth in 1 day 01/04/18 11:22 Blood - Peripheral Anaerobic Blood Culture - Preliminary No growth in 1 day 01/04/18 11:34 Blood - Peripheral Aerobic Blood Culture - Preliminary No growth in 1 day 01/04/18 11:34 Blood - Peripheral Anaerobic Blood Culture - Preliminary No growth in 1 day 01/01/18 14:10 Blood - Peripheral Aerobic Blood Culture - Preliminary No growth in 4 days 01/01/18 14:10 Blood - Peripheral Anaerobic Blood Culture - Preliminary No growth in 4 days 01/01/18 14:00 Blood - Peripheral Aerobic Blood Culture - Preliminary No growth in 4 days 01/01/18 14:00 Blood - Peripheral Anaerobic Blood Culture - Preliminary No growth in 4 days - Imaging Impressions Videofluoroscopic Swallow 01/05/18 00:00 CONCLUSION: Negative modified barium swallow. Assessment and Plan - Assessment (1) Acute pyelonephritis Code(s): N10 - Acute pyelonephritis Status: Acute (2) Left nephrolithiasis Code(s): N20.0 - Calculus of kidney Status: Acute (3) Sepsis Code(s): A41.9 - Sepsis, unspecified organism Status: Acute (4) UTI (urinary tract infection) Code(s): N39.0 - Urinary tract infection, site not specified Status: Acute (5) Renal stone Code(s): N20.0 - Calculus of kidney Status: Acute (6) Thrombocytopenia Code(s): D69.6 - Thrombocytopenia, unspecified Status: Acute - Plan //Complicated UTI: //Sepsis = 01/02 U/a w/ UTI, +fever 102.2, continue w/ IV Abx, follow up cultures, IVF for hydration, monitor I/O. = 01/02. Patient with rigors. Heart rate 104, elevated temperature of 100.0. Fever 102 last night. Suspected sepsis. Will order stat labs. Switch antibiotics from ceftriaxone which patient has not received yet to Zosyn. = 01/03. Shaking and chills has resolved. Proteus pansensitive. Will switch to by mouth Levaquin. Patient appears to be very weak will await physical therapy recommendations. Appreciate assistance. Will need to follow-up with urology as outpatient = 01/04. Repeat fever. Chest x-ray with bilateral infiltrates. BNP mildly elevated in the 400s. Recent history has dysphasia. Will consult GI, swallow evaluation. = 01/05. Aspiration workup so far is negative. Pending official speech evaluation. Continue IV antibiotics as per infectious disease hopefully can go home in the next few days. = 01/06. Still with low-grade fevers 100.1 today. With vague left lower quadrant abdominal pain could be left-sided hydronephrosis. Notified infectious disease. Will recheck urinalysis and urine culture. //Dysphasia. Status post EGD, barium swallow without obvious cause of dysphasia. Pending official speech evaluation. Appreciate assistance. = No swallowing abnormalities seen by speech therapy. EGD negative. No neurologic symptoms. Nonfocal. //Peptic ulcer EGD performed on 01/05 with peptic ulcer. Will continue on PPI. Appreciate GI assistance. //Diastolic CHF exacerbation. //pulmonary edema on chest x-ray 01/04. BNP was elevated in the 400s. =Echocardiogram preserved ejection fraction normal. Moderate tricuspid regurgitation. Likely secondary to iatrogenic IV fluids. Will monitor fluid status. //Hypokalemia. Potassium 2.9. Replace and monitor. = 01/05. Potassium 3.3. Monitor. = 01/06. Potassium 3.3. Replaced. //Hypertension. Blood pressures in the 150s today, improving. Will start back on home medications as warranted. Continue to monitor. = 01/05 blood pressure is improved today. = 12/07. Systolic blood pressures in the 170s. Will start hydrochlorothiazide and hydralazine. Single dose of IV Lasix. Monitor. //Renal Stone: CT Abd/Pelvis w/ 2mm left ureteral calculus w/ moderate hydronephrosis and hydroureter, images reviewed. Dr. Garcia consulted, recommended Flomax, no intervention as stone likely to pass on its own. Pt has upcoming bobby w/ Urology at the [facility] on 01/11/18, follow up w/ Urology as scheduled. Analgesics/antiemetics as needed. IVF for hydration. = No intervention at this time. Appreciate urology assistance. Will need to follow-up with urology as outpatient. //Thrombocytopenia: Platelets 110, no previous labs for comparison, reports h/ o long-standing hematuria, possibly due to thrombocytopenia, recommend outpatient follow up, monitor for bleeding, repeat labs in am. = Follow-up repeat CBC. Platelets stable. No signs of bleeding. = 01/06. Platelets 143. No signs of bleeding. //DVT Prophylaxis: SCD/Teds Discharge Planning: Treatment for sepsis. = Still with low-grade fevers. We will need ID clearance PT recommends home with home health.
[2018-01-06 11:36] LABS: Calcium 7.7 mg/dL (8.5-10.1); Carbon Dioxide 28.2 meq/L (21.0-32.0); Potassium 3.2 meq/L (3.5-5.1)
[2018-01-06] MEDS: hydrALAZINE 25 MG Tablet PO SCH ×2 (12:18→17:24)
[2018-01-06] MEDS: levoFLOXacin 750 MG Tablet PO SCH (12:19)
--- NOTE | 2018-01-06 12:45 | P.PNGI ---
Subjective Interval history: Patient sitting up in bed spouse at bedside. Denies any abdominal pain or nausea vomiting at this time. <Josephine Hodges - Last Filed: 01/06/18 12:45> Physical Exam Vital signs: Vital Signs 01/05/18 16:00 01/05/18 20:00 01/06/18 00:00 Temperature 98.4 F 99.2 F 99.7 F H Pulse Rate 97 H 84 98 H Respiratory Rate 22 20 18 Blood Pressure 156/69 H 158/70 H 189/89 H Pulse Oximetry 90 L 91 L 90 L 01/06/18 04:00 01/06/18 06:00 01/06/18 08:00 Temperature 98.8 F 100.1 F H Pulse Rate 92 H 93 H Respiratory Rate 18 18 17 Blood Pressure 130/76 171/83 H Pulse Oximetry 90 L 93 L 01/06/18 11:07 01/06/18 11:10 Temperature 98.5 F Pulse Rate 67 Respiratory Rate 18 Blood Pressure 114/56 L Pulse Oximetry 92 L 92 L Intake & Output 01/05/18 01/06/18 01/06/18 18:59 06:59 18:59 Intake Total 400 / 400 600 / 600 200 / 200 Output Total 1625 / 1625 900 / 900 Balance -1225 / -1225 -300 / -300 200 / 200 Weight 81.3 kg Intake: IV 0 / 0 200 / 200 200 / 200 Zosyn 4.5 GM Premix 4.5 gm In 0 / 0 200 / 200 200 / 200 100 ml @ 200 mls/hr IV.SIG Q6H [facility] Rx#:[id number] Oral 0 / 0 0 / 0 Anesthesia Amount 400 / 400 400 / 400 Output: Urine 1625 / 1625 900 / 900 Other: Date of Last Bowel Movement 01/03/18 01/03/18 01/06/18 # Bowel Movements 2 1 - Constitutional no acute distress - Routine HEENT Exam Head: Present: normocephalic - Routine Respiratory Exam Present: CTA bilaterally - Routine Cardiovascular Exam Present: RRR - Routine Abdominal Exam Present: soft, normoactive bowel sounds. Absent: tenderness - Routine Extremities Exam Absent: edema - Routine Skin Exam Present: dry, warm - Routine Neurological Exam Present: alert, oriented X3 - Detailed Neurological Exam: Coma Scale Eye Opening: Spontaneous Verbal Response: Oriented Motor Response: Obey commands Dudley Coma Scale Total: 15 - Routine Psychiatric Exam Present: normal affect, cooperative - Urinary Catheter Management Condom Cath placed during this visit: no Reason for continuing: Not indwelling catheter <Josephine Hodges - Last Filed: 01/06/18 12:45> Vital signs: Vital Signs 01/05/18 20:00 01/06/18 00:00 01/06/18 04:00 Temperature 99.2 F 99.7 F H Pulse Rate 84 98 H Respiratory Rate 20 18 18 Blood Pressure 158/70 H 189/89 H Pulse Oximetry 91 L 90 L 01/06/18 06:00 01/06/18 08:00 01/06/18 11:07 Temperature 98.8 F 100.1 F H 98.5 F Pulse Rate 92 H 81 67 Respiratory Rate 18 17 18 Blood Pressure 130/76 171/83 H 114/56 L Pulse Oximetry 90 L 93 L 92 L 01/06/18 11:10 01/06/18 12:00 Temperature Pulse Rate 61 Respiratory Rate Blood Pressure Pulse Oximetry 92 L Intake & Output 01/05/18 01/06/18 01/06/18 18:59 06:59 18:59 Intake Total 400 / 400 600 / 600 300 / 300 Output Total 1625 / 1625 900 / 900 Balance -1225 / -1225 -300 / -300 300 / 300 Weight 81.3 kg Intake: IV 0 / 0 200 / 200 300 / 300 Zosyn 4.5 GM Premix 4.5 gm In 0 / 0 200 / 200 300 / 300 100 ml @ 200 mls/hr IV.SIG Q6H [facility] Rx#:[id number] Oral 0 / 0 0 / 0 Anesthesia Amount 400 / 400 400 / 400 Output: Urine 1625 / 1625 900 / 900 Other: Date of Last Bowel Movement 01/03/18 01/03/18 01/06/18 # Bowel Movements 2 1 - Urinary Catheter Management Condom Cath placed during this visit: no <Issa Kenny - Last Filed: 01/06/18 17:13> Results - Labs CBC & Chem 7: 01/06/18 06:51 01/06/18 10:20 Laboratory Results - last 24 hr 01/06/18 01/06/18 06:51 10:20 WBC 7.3 RBC 4.29 L Hgb 12.7 L Hct 36.7 L MCV 85.6 MCH 29.6 MCHC 34.6 RDW 14.2 Plt Count 143 L MPV 7.4 Sodium 139 Potassium 3.2 L Chloride 102 Carbon Dioxide 28.2 Anion Gap 9 BUN 10 Creatinine 1.06 Estimated GFR 69 L Random Glucose 162 H Calcium 7.7 L Microbiology 01/04/18 11:22 Blood - Peripheral Aerobic Blood Culture - Preliminary No growth in 2 days 01/04/18 11:22 Blood - Peripheral Anaerobic Blood Culture - Preliminary No growth in 2 days 01/04/18 11:34 Blood - Peripheral Aerobic Blood Culture - Preliminary No growth in 2 days 01/04/18 11:34 Blood - Peripheral Anaerobic Blood Culture - Preliminary No growth in 2 days 01/01/18 14:10 Blood - Peripheral Aerobic Blood Culture - Final No growth in 5 days 01/01/18 14:10 Blood - Peripheral Anaerobic Blood Culture - Final No growth in 5 days 01/01/18 14:00 Blood - Peripheral Aerobic Blood Culture - Final No growth in 5 days 01/01/18 14:00 Blood - Peripheral Anaerobic Blood Culture - Final No growth in 5 days - Imaging Impressions Videofluoroscopic Swallow 01/05/18 00:00 CONCLUSION: Negative modified barium swallow. <Josephine Hodges - Last Filed: 01/06/18 12:45> - Labs CBC & Chem 7: 01/06/18 06:51 01/06/18 10:20 Laboratory Results - last 24 hr 01/06/18 01/06/18 06:51 10:20 WBC 7.3 RBC 4.29 L Hgb 12.7 L Hct 36.7 L MCV 85.6 MCH 29.6 MCHC 34.6 RDW 14.2 Plt Count 143 L MPV 7.4 Sodium 139 Potassium 3.2 L Chloride 102 Carbon Dioxide 28.2 Anion Gap 9 BUN 10 Creatinine 1.06 Estimated GFR 69 L Random Glucose 162 H Calcium 7.7 L Microbiology 01/04/18 11:22 Blood - Peripheral Aerobic Blood Culture - Preliminary No growth in 2 days 01/04/18 11:22 Blood - Peripheral Anaerobic Blood Culture - Preliminary No growth in 2 days 01/04/18 11:34 Blood - Peripheral Aerobic Blood Culture - Preliminary No growth in 2 days 01/04/18 11:34 Blood - Peripheral Anaerobic Blood Culture - Preliminary No growth in 2 days 01/01/18 14:10 Blood - Peripheral Aerobic Blood Culture - Final No growth in 5 days 01/01/18 14:10 Blood - Peripheral Anaerobic Blood Culture - Final No growth in 5 days 01/01/18 14:00 Blood - Peripheral Aerobic Blood Culture - Final No growth in 5 days 01/01/18 14:00 Blood - Peripheral Anaerobic Blood Culture - Final No growth in 5 days <EfraínIssa E - Last Filed: 01/06/18 17:13> Assessment and Plan - Plan 72-year-old male who came into the hospital on 01/01/2018 with altered mental status and fever according to the record patient was also positive for UTI. Patient also has significant history of prostate cancer 8-9 years ago and is currently noted to have fatigue as well as generalized weakness. Patient does note symptoms of dysphasia with some nausea and vomiting but is a poor historian and is unable to give me any onset of timing. Patient also notes some diarrhea since being in the hospital unknown for any melena stools. Currently patient has oxygen going at 3 L per nasal cannula but no obvious shortness of breath has now come into the room and is able to give a little more information about patient's current symptoms. She notes that patient chokes on medications and had problems with choking on his pills as recent as this a.m. she also notes a history of constipation alternated with some diarrhea off and on at home. Colonoscopy approximately 7 years ago at the [facility] but unknown findings and no previous EGD ever done patient currently denies any abdominal pain and has no obvious symptoms of hematemesis or GI bleeding. Patient denies any dyspepsia symptoms but states he does wake up at times during the night with cough and possibly some shortness of breath. Current hemoglobin 13.6, platelet count seems to wax and wane but currently 106, INR 1.2 , bilirubin normal at 0.8, AST 42 ALT 34. BNP is noted to be 497 and patient is receiving some IV diuretics. Abdominal CT scan on 01/01/2018 unremarkable for any GI issues. Positive family history of colon cancer mom and her older years unknown age. Gastroenterology was consulted for the dysphasia symptoms and to assist with the plan of care. Dysphasia, unknown timing of symptoms but and patient states happening for an extended period of time before hospital stay symptoms do appear to be worsening patient had mild choking episodes this morning on his medications. also states that he struggles with meat, rice, Weakness and fatigue, history of prostate cancer 8-9 years ago Nausea some vomiting initially on admission but does not appear to be any now 01/06/18-Dysphagia /Nausea-Patient sitting up in bed. Breakfast meal at bedside. Patient denies, choking or difficulty swallowing this am. Denies nausea. Hemoglobin 12.7 hematocrit 36.7. Discussed EGD findings of gastric ulcer and gastritis with patient as well as follow up instructions post discharge. Acid reflux precautions and dietary restrictions as well. Patient and spouse verbalize understanding and agree to follow up as outpatient after discharge for biopsy results. Plan: -Diet as tolerated -Avoid NSAIDs and aspirin -Protonix 40 mg p.o. twice daily -Patient agrees to follow-up with GI for repeat EGD in 2 months -Monitor for any symptoms of dysphagia -Continue supportive care This patient has been seen by myself and Dr. Kenny and this note is written on his behalf - Attending Attestation Dr. Kenny <Josephine Hodges - Last Filed: 01/06/18 12:45> - Plan Patient seen and examined Agree with above Continue with current supportive care Monitor labs Follow-up with GI post discharge Continue PPI Not much to add from a GI perspective we will sign off <Issa Kenny - Last Filed: 01/06/18 17:13>
[2018-01-06] MEDS: traZODone 50 MG Tablet PO SCH (22:17)
[2018-01-07] MEDS: Piperacil/Tazo 4.5 GM Premix 4.5 GM/100 ML BAG IV.SIG SCH ×4 (04:22→20:57)
[2018-01-07 06:21] LABS: Baso % (Auto) 0.4 % (0.0-2.0); Eos # (Auto) 0.1 th/mm3 (0.0-0.4); Eos % (Auto) 1.4 % (0.0-4.0); Hematocrit 36.4 % (39.0-51.0); Hemoglobin 12.4 gm/dL (13.0-17.0); Lymph # (Auto) 0.4 th/mm3 (1.0-4.8); Lymph % (Auto) 5.6 % (9.0-44.0); Mean Corpuscular HGB Conc 34.2 % (32.0-36.0); Mean Corpuscular Hemoglobin 29.2 pg (27.0-34.0); Mean Corpuscular Volume 85.5 fL (80.0-100.0); Mean Platelet Volume 7.7 fL (7.0-11.0); Mono # (Auto) 0.4 th/mm3 (0.0-0.9); Neut # (Auto) 6.6 th/mm3 (1.8-7.7); Neut % (Auto) 87.6 % (16.0-70.0); Platelet Count 175 th/mm3 (150-450); Red Blood Count 4.26 mil/mm3 (4.50-5.90); Red Cell Distribution Width 14.7 % (11.6-17.2); White Blood Count 7.5 th/mm3 (4.0-11.0)
[2018-01-07 06:44] LABS: Albumin 2.2 g/dL (3.4-5.0); Calcium 7.9 mg/dL (8.5-10.1); Carbon Dioxide 27.9 meq/L (21.0-32.0); Magnesium 1.9 mg/dL (1.5-2.5); Phosphorus 2.9 mg/dL (2.5-4.9); Potassium 3.5 meq/L (3.5-5.1)
--- NOTE | 2018-01-07 08:41 | XR ---
EXAM DATE: 01/07/2018 12:00 AM EDT AGE/SEX: 72 years / Male INDICATIONS: Cough. Shortness of breath. CLINICAL DATA: This is the patient's subsequent encounter. Patient reports that signs and symptoms h ave been present for 4 - 6 days and indicates a pain score of 0/10. MEDICAL/SURGICAL HISTORY: Hypertension. None. COMPARISON: 01/04/2018. FINDINGS: The heart size is normal. There are bilateral perihilar areas of consolidation being worse on the rig ht. These appear fairly stable when compared to the most recent chest x-ray. The costophrenic angles are clear. CONCLUSION: Bilateral perihilar areas of consolidation. Electronically signed by: Alli Whitehead MD 01/07/2018 8:40 AM EDT
[2018-01-07] MEDS: Baclofen 10 MG Tablet PO SCH ×2 (09:49→14:53)
[2018-01-07] MEDS: buPROPion 75 MG Tablet PO SCH (09:49)
[2018-01-07] MEDS: hydrALAZINE 25 MG Tablet PO SCH ×3 (09:50→18:01)
[2018-01-07] MEDS: Gabapentin 300 MG Capsule PO SCH (09:50)
[2018-01-07] MEDS: Lisinopril 20 MG Tablet PO SCH (09:50)
[2018-01-07] MEDS: amLODIPine 10 MG Tablet PO SCH (09:50)
[2018-01-07] MEDS: Sertraline 100 MG Tablet PO SCH (09:51)
[2018-01-07] MEDS: Pantoprazole Inj 40 MG Vial IV.PUSH SCH ×2 (09:51→20:40)
--- NOTE | 2018-01-07 09:56 | P.PNIM ---
Subjective Interval history: Patient says he is feeling well and would like to go home. Denies any chest pain or shortness of breath. It appears that he may be minimizing. Physical Exam Vital signs: Vital Signs 01/06/18 11:07 01/06/18 11:10 01/06/18 12:00 Temperature 98.5 F Pulse Rate 67 61 Respiratory Rate 18 Blood Pressure 114/56 L Pulse Oximetry 92 L 92 L 01/06/18 16:00 01/06/18 20:00 01/07/18 00:00 Temperature 97.5 F L 97.3 F L 97.8 F Pulse Rate 56 L 62 60 Respiratory Rate 18 18 18 Blood Pressure 139/63 147/68 H 142/69 H Pulse Oximetry 93 L 93 L 93 L 01/07/18 00:21 01/07/18 04:00 01/07/18 08:00 Temperature 98 F 98.7 F Pulse Rate 77 70 Respiratory Rate 18 18 Blood Pressure 123/67 171/74 H Pulse Oximetry 94 L 94 L 95 Intake & Output 01/06/18 01/07/18 01/07/18 18:59 06:59 18:59 Intake Total 860 / 860 810 / 810 Output Total 800 / 800 Balance 60 / 60 810 / 810 Weight 81.3 kg Intake: IV 300 / 300 200 / 200 Zosyn 4.5 GM Premix 4.5 gm In 300 / 300 200 / 200 100 ml @ 200 mls/hr IV.SIG Q6H [facility] Rx#:[id number] Oral 560 / 560 210 / 210 Anesthesia Amount 400 / 400 Output: Urine Amount (Catheter) 800 / 800 Condom 800 / 800 Other: # Voids 2 Date of Last Bowel Movement 01/06/18 01/06/18 # Bowel Movements 1 1 Narrative: GENERAL: Patient sitting up in bed. Appears comfortable. Alert and oriented x3. On 4 L O2 SKIN: Warm and dry. HEAD: Normocephalic. EYES: No scleral icterus. No injection or drainage. NECK: Supple, trachea midline. No JVD. CARDIOVASCULAR: Regular rate and rhythm without murmurs, gallops, or rubs. RESPIRATORY: Breath sounds equal bilaterally. No accessory muscle use. GASTROINTESTINAL: Abdomen soft, non-tender, nondistended. No rebound or guarding. MUSCULOSKELETAL: No cyanosis, or edema. BACK: Nontender without obvious deformity. No CVA tenderness. - Urinary Catheter Management Condom Cath placed during this visit: no Reason for continuing: Not indwelling catheter Results - Labs CBC & Chem 7: 01/07/18 05:00 01/07/18 05:00 Laboratory Results - last 24 hr 01/06/18 01/07/18 01/07/18 10:20 05:00 05:00 WBC 7.5 RBC 4.26 L Hgb 12.4 L Hct 36.4 L MCV 85.5 MCH 29.2 MCHC 34.2 RDW 14.7 Plt Count 175 MPV 7.7 Neut % (Auto) 87.6 H Lymph % (Auto) 5.6 L Ramsey % (Auto) 5.0 Eos % (Auto) 1.4 Baso % (Auto) 0.4 Neut # (Auto) 6.6 Lymph # (Auto) 0.4 L Ramsey # (Auto) 0.4 Eos # (Auto) 0.1 Baso # (Auto) 0.0 WBC Differential . Differential Comment Auto diff final Sodium 139 143 Potassium 3.2 L 3.5 Chloride 102 103 Carbon Dioxide 28.2 27.9 Anion Gap 9 12 BUN 10 13 Creatinine 1.06 1.04 Estimated GFR 69 L 71 L Random Glucose 162 H 102 Calcium 7.7 L 7.9 L Phosphorus 2.9 Magnesium 1.9 B-Natriuretic Peptide Albumin 2.2 L 01/07/18 05:00 WBC RBC Hgb Hct MCV MCH MCHC RDW Plt Count MPV Neut % (Auto) Lymph % (Auto) Ramsey % (Auto) Eos % (Auto) Baso % (Auto) Neut # (Auto) Lymph # (Auto) Ramsey # (Auto) Eos # (Auto) Baso # (Auto) WBC Differential Differential Comment Sodium Potassium Chloride Carbon Dioxide Anion Gap BUN Creatinine Estimated GFR Random Glucose Calcium Phosphorus Magnesium B-Natriuretic Peptide 122 H Albumin Microbiology 01/04/18 11:22 Blood - Peripheral Aerobic Blood Culture - Preliminary No growth in 2 days 01/04/18 11:22 Blood - Peripheral Anaerobic Blood Culture - Preliminary No growth in 2 days 01/04/18 11:34 Blood - Peripheral Aerobic Blood Culture - Preliminary No growth in 2 days 01/04/18 11:34 Blood - Peripheral Anaerobic Blood Culture - Preliminary No growth in 2 days 01/01/18 14:10 Blood - Peripheral Aerobic Blood Culture - Final No growth in 5 days 01/01/18 14:10 Blood - Peripheral Anaerobic Blood Culture - Final No growth in 5 days 01/01/18 14:00 Blood - Peripheral Aerobic Blood Culture - Final No growth in 5 days 01/01/18 14:00 Blood - Peripheral Anaerobic Blood Culture - Final No growth in 5 days - Imaging Impressions Chest X-Ray 01/07/18 00:00 CONCLUSION: Bilateral perihilar areas of consolidation. Assessment and Plan - Assessment (1) Acute pyelonephritis Code(s): N10 - Acute pyelonephritis Status: Acute (2) Left nephrolithiasis Code(s): N20.0 - Calculus of kidney Status: Acute (3) Sepsis Code(s): A41.9 - Sepsis, unspecified organism Status: Acute (4) UTI (urinary tract infection) Code(s): N39.0 - Urinary tract infection, site not specified Status: Acute (5) Renal stone Code(s): N20.0 - Calculus of kidney Status: Acute (6) Thrombocytopenia Code(s): D69.6 - Thrombocytopenia, unspecified Status: Acute - Plan //Complicated UTI: //Sepsis = 01/02 U/a w/ UTI, +fever 102.2, continue w/ IV Abx, follow up cultures, IVF for hydration, monitor I/O. = 01/02. Patient with rigors. Heart rate 104, elevated temperature of 100.0. Fever 102 last night. Suspected sepsis. Will order stat labs. Switch antibiotics from ceftriaxone which patient has not received yet to Zosyn. = 01/03. Shaking and chills has resolved. Proteus pansensitive. Will switch to by mouth Levaquin. Patient appears to be very weak will await physical therapy recommendations. Appreciate assistance. Will need to follow-up with urology as outpatient = 01/04. Repeat fever. Chest x-ray with bilateral infiltrates. BNP mildly elevated in the 400s. Recent history has dysphasia. Will consult GI, swallow evaluation. = 01/05. Aspiration workup so far is negative. Pending official speech evaluation. Continue IV antibiotics as per infectious disease hopefully can go home in the next few days. = 01/06. Still with low-grade fevers 100.1 today. With vague left lower quadrant abdominal pain could be left-sided hydronephrosis. Notified infectious disease. Will recheck urinalysis and urine culture. = 01/07. No fevers today. Still with hypoxia. Will consult pulmonary. Persistent infiltrates on chest x-ray. //Hypoxemic respiratory failure. Oxygen as needed. Duo nebs scheduled and as needed. Incentive spirometry. Continues on treatment for aspiration pneumonia. //Dysphasia. Status post EGD, barium swallow without obvious cause of dysphasia. Pending official speech evaluation. Appreciate assistance. = No swallowing abnormalities seen by speech therapy. EGD negative. No neurologic symptoms. Nonfocal. //Peptic ulcer EGD performed on 01/05 with peptic ulcer. Will continue on PPI. Appreciate GI assistance. //Diastolic CHF exacerbation. //pulmonary edema on chest x-ray 01/04. BNP was elevated in the 400s. =Echocardiogram preserved ejection fraction normal. Moderate tricuspid regurgitation. Likely secondary to iatrogenic IV fluids. Will monitor fluid status. = BMP in the 100s now. Improved. //Hypokalemia. Potassium 2.9. Replace and monitor. = Resolved after replacement //Hypertension. Blood pressures in the 150s today, improving. Will start back on home medications as warranted. Continue to monitor. = 01/05 blood pressure is improved today. = 12/08 blood pressure improved current regimen. Continue to monitor. //Renal Stone: CT Abd/Pelvis w/ 2mm left ureteral calculus w/ moderate hydronephrosis and hydroureter, images reviewed. Dr. Garcia consulted, recommended Flomax, no intervention as stone likely to pass on its own. Pt has upcoming bobby w/ Urology at the [place] on 01/11/18, follow up w/ Urology as scheduled. Analgesics/antiemetics as needed. IVF for hydration. = No intervention at this time. Appreciate urology assistance. Will need to follow-up with urology as outpatient. //Thrombocytopenia: Platelets 110, no previous labs for comparison, reports h/ o long-standing hematuria, possibly due to thrombocytopenia, recommend outpatient follow up, monitor for bleeding, repeat labs in am. = Follow-up repeat CBC. Platelets stable. No signs of bleeding. = 01/06. Platelets 143. No signs of bleeding. //DVT Prophylaxis: SCD/Teds Discharge Planning: Treatment for sepsis. = Still with hypoxia. We will need ID clearance PT recommends home with home health.
[2018-01-07 10:22] LABS: ABG Base Excess 2.6 mmol/L (-2-2); ABG PCO2 34 mmHg (38-42); ABG PO2 70 mmHg (61-120)
[2018-01-07] MEDS: levoFLOXacin 750 MG Tablet PO SCH (13:49)
--- NOTE | 2018-01-07 14:47 | MB ---
cc: Giovanni Mendez MD DATE: 01/07/2018 HISTORY OF PRESENT ILLNESS: Mr. Moore is a 72-year-old white male who presented with left flank pain and a kidney stone with hydronephrosis. Urology saw him, he was hydrated aggressively and the pain is resolved, although he has not documented actual passage of the stone clinically. He began to develop shortness of breath 48-72 hours after presentation and although his initial chest film on 01/01/2018 was clear, a followup on 01/04/2018 that is 4 days later revealed perihilar infiltrates. White count was normal at that time, he had no significant temperature, but there was a concern that he may have aspirated, so additional antibiotics were added. The only positive culture that he has had to date is Proteus in his urine. Multiple blood cultures have been negative. No sputum has been produced. The patient was a little difficult to arouse at the time of this presentation, but we did get him aroused. I spoke to the primary about that and he is making some adjustments in his gabapentin and baclofen. In any event, the patient has no current respiratory complaints. Although he is reported to have COPD, that has never been formally diagnosed. According to he and his and he only smoked for about 10 pack years in his 20s, Has not smoked at all since he was 32. No significant prior pulmonary history. No pneumonias No history of asthma or allergies. Basically no significant prior pulmonary disease noted. Followup chest x-ray is slightly improved on 01/07/2018. He has been diuresed, but still remains positive on his I and O. PAST MEDICAL HISTORY: Hypertension, history of cataract surgery and hernia repairs. No significant prior cardiovascular history according to his . CURRENT MEDICATIONS: Reviewed in the EMR. ALLERGIES: NONE KNOWN. SOCIAL HISTORY: Originally from [place]. They have lived in the [facility] now for about 20 years, retired from a variety of maintenance jobs. A [id number] smoking history, quit years ago, drank heavily as well in his 20s, but has not had a significant alcohol since then either. No recent travel out of this area. REVIEW OF SYSTEMS: He was a little short of breath several days into this admission that has resolved. He has had no chest pain. No cough or purulent sputum. No nausea, vomiting or abdominal pain other than the flank pain on presentation. No increase in lower extremity edema. PHYSICAL EXAMINATION: VITAL SIGNS: 98 degrees, pulse is 70-80, respirations are 16-18, O2 saturation is 95%, but he is on 4 liters of oxygen. HEENT: Sclerae are anicteric. NECK: Veins are not distended. CHEST: Really quite clear. No significant rales. No congestion or wheezing. HEART: Regular rhythm. No harsh murmur. No significant edema. No calf tenderness. DISCUSSION: Mr. Moore presents with a kidney stone, no positive blood cultures, but positive urinary culture. Also had a stone with hydronephrosis, that is being followed by Urology. He was aggressively hydrated on initial presentation, got 6-7 liters ahead on fluid, did respond to diuretics with an improvement in symptoms and diuresis. Whether he had an aspiration is not clear. He is on appropriate antibiotics with infectious disease for that possibility. If the chest x-ray is clearing and he is responding to diuretics, I suppose those could be scaled back just to cover the urinary tract process. PLAN: At this point, I do not know that he has any underlying COPD. He has had a minimal prior smoking history, so we will continue aerosol treatments just p.r.n. Further diagnostic and/or therapeutic intervention will depend on his ongoing clinical course. R. Dipak Mendez MD RSW/ct , 02:10 PM , 02:18 PM
[2018-01-07] MEDS ORDERED: Sodium Chloride 0.9% 2 ML Flush PRN IV.FLUSH (15:59)
[2018-01-07] MEDS: traZODone 50 MG Tablet PO SCH (20:57)
[2018-01-07] MEDS: Sodium Chloride 0.9% 2 ML Flush BID IV.FLUSH SCH (20:58)
[2018-01-08] MEDS: Piperacil/Tazo 4.5 GM Premix 4.5 GM/100 ML BAG IV.SIG SCH ×4 (03:53→21:40)
[2018-01-08] MEDS ORDERED: Promethazine 25 MG Supp RECTAL PRN (08:50)
--- NOTE | 2018-01-08 09:27 | P.PNIM ---
Subjective Interval history: Again says he is feeling right. He is continuing to be disoriented. Disoriented to year, month. Had poor sleep overnight. Patient had episode of bilious vomiting upon getting up to go to the restroom. Nausea resolved Physical Exam Vital signs: Vital Signs 01/07/18 09:53 01/07/18 12:00 01/07/18 16:00 Temperature 99 F 97.9 F Pulse Rate 75 70 77 Respiratory Rate 16 18 18 Blood Pressure 110/52 L 112/66 Pulse Oximetry 95 97 97 Pulse Oximetry [Resting on Room Air] Pulse Oximetry [Resting with Oxygen] 01/07/18 16:12 01/07/18 18:24 01/07/18 20:00 Temperature 98.7 F Pulse Rate 72 74 Respiratory Rate 16 20 Blood Pressure 114/61 Pulse Oximetry 93 L Pulse Oximetry [Resting on Room Air] 86 L Pulse Oximetry [Resting with Oxygen] 95 01/07/18 21:10 01/08/18 00:00 01/08/18 04:00 Temperature 98.2 F 98.5 F Pulse Rate 78 78 73 Respiratory Rate 16 20 20 Blood Pressure 117/58 L 147/67 H Pulse Oximetry 95 96 94 L Pulse Oximetry [Resting on Room Air] Pulse Oximetry [Resting with Oxygen] 01/08/18 04:13 01/08/18 08:00 Temperature 98.7 F Pulse Rate 71 74 Respiratory Rate 15 18 Blood Pressure 163/68 H Pulse Oximetry 93 L Pulse Oximetry [Resting on Room Air] Pulse Oximetry [Resting with Oxygen] Intake & Output 01/07/18 01/08/18 01/08/18 18:59 06:59 18:59 Intake Total 800 / 800 680 / 680 Output Total 1700 / 1700 1600 / 1600 Balance -900 / -900 -920 / -920 Weight 77.1 kg Intake: IV 200 / 200 200 / 200 Zosyn 4.5 GM Premix 4.5 gm In 200 / 200 200 / 200 100 ml @ 200 mls/hr IV.SIG Q6H [facility] Rx#:[id number] Oral 480 / 480 Anesthesia Amount 400 / 400 Other 200 / 200 Output: Urine 900 / 900 1600 / 1600 Urine Amount (Catheter) 800 / 800 Condom 800 / 800 Other: # Voids 2 Date of Last Bowel Movement 01/06/18 01/06/18 # Bowel Movements 1 Narrative: GENERAL: Patient sitting up in bed. Appears comfortable. Alert and oriented x3. On 5 L O2. SKIN: Warm and dry. HEAD: Normocephalic. EYES: No scleral icterus. No injection or drainage. NECK: Supple, trachea midline. No JVD. CARDIOVASCULAR: Regular rate and rhythm without murmurs, gallops, or rubs. RESPIRATORY: Breath sounds equal bilaterally. No accessory muscle use. GASTROINTESTINAL: Abdomen soft, non-tender, nondistended. No rebound or guarding. MUSCULOSKELETAL: No cyanosis, or edema. BACK: Nontender without obvious deformity. No CVA tenderness. - Urinary Catheter Management Condom Cath placed during this visit: no Reason for continuing: Not indwelling catheter Results - Labs CBC & Chem 7: 01/07/18 05:00 01/07/18 05:00 Laboratory Results - last 24 hr 01/07/18 01/07/18 05:00 10:17 Puncture Site Left radial Patient Temperature 98.6 O2 Saturation 92 ABG pH 7.50 H ABG pCO2 34 L ABG pO2 70 ABG HCO3 26 ABG O2 Content 19.7 ABG Base Excess 2.6 H ABG Methemoglobin 0.8 Valeriano Test Present Hemoglobin 15.2 Carboxyhemoglobin 1.3 O2 Delivery Device Nasal cannula Liter Flow 6.00 Critical Value No B-Natriuretic Peptide 122 H Microbiology 01/04/18 11:22 Blood - Peripheral Aerobic Blood Culture - Preliminary No growth in 3 days 01/04/18 11:22 Blood - Peripheral Anaerobic Blood Culture - Preliminary No growth in 3 days 01/04/18 11:34 Blood - Peripheral Aerobic Blood Culture - Preliminary No growth in 3 days 01/04/18 11:34 Blood - Peripheral Anaerobic Blood Culture - Preliminary No growth in 3 days Assessment and Plan - Assessment (1) Acute pyelonephritis Code(s): N10 - Acute pyelonephritis Status: Acute (2) Left nephrolithiasis Code(s): N20.0 - Calculus of kidney Status: Acute (3) Sepsis Code(s): A41.9 - Sepsis, unspecified organism Status: Acute (4) UTI (urinary tract infection) Code(s): N39.0 - Urinary tract infection, site not specified Status: Acute (5) Renal stone Code(s): N20.0 - Calculus of kidney Status: Acute (6) Thrombocytopenia Code(s): D69.6 - Thrombocytopenia, unspecified Status: Acute - Plan //Complicated UTI: //Sepsis = 01/02 U/a w/ UTI, +fever 102.2, continue w/ IV Abx, follow up cultures, IVF for hydration, monitor I/O. = 01/02. Patient with rigors. Heart rate 104, elevated temperature of 100.0. Fever 102 last night. Suspected sepsis. Will order stat labs. Switch antibiotics from ceftriaxone which patient has not received yet to Zosyn. = 01/03. Shaking and chills has resolved. Proteus pansensitive. Will switch to by mouth Levaquin. Patient appears to be very weak will await physical therapy recommendations. Appreciate assistance. Will need to follow-up with urology as outpatient = 01/04. Repeat fever. Chest x-ray with bilateral infiltrates. BNP mildly elevated in the 400s. Recent history has dysphasia. Will consult GI, swallow evaluation. = 01/05. Aspiration workup so far is negative. Pending official speech evaluation. Continue IV antibiotics as per infectious disease hopefully can go home in the next few days. = 01/06. Still with low-grade fevers 100.1 today. With vague left lower quadrant abdominal pain could be left-sided hydronephrosis. Notified infectious disease. Will recheck urinalysis and urine culture. = 01/07. No fevers today. Still with hypoxia. Will consult pulmonary. Persistent infiltrates on chest x-ray. = 01/08. Continues without fevers. //Nausea vomiting 01/08. Patient with episode of bilious vomiting. Likely secondary to hypoxia, walking without oxygen. Expect to improve. //Hypoxemic respiratory failure. Oxygen as needed. Duo nebs scheduled and as needed. Incentive spirometry. Continues on treatment for aspiration pneumonia. = 01/08. Appears that oxygenation is improving, requiring 3 L upon sitting up in chair this morning. //Dysphasia. Status post EGD, barium swallow without obvious cause of dysphasia. Pending official speech evaluation. Appreciate assistance. = No swallowing abnormalities seen by speech therapy. EGD negative. No neurologic symptoms. Nonfocal. //Peptic ulcer EGD performed on 01/05 with peptic ulcer. Will continue on PPI. Appreciate GI assistance. //Diastolic CHF exacerbation. //pulmonary edema on chest x-ray 01/04. BNP was elevated in the 400s. =Echocardiogram preserved ejection fraction normal. Moderate tricuspid regurgitation. Likely secondary to iatrogenic IV fluids. Will monitor fluid status. = BMP in the 100s now. Improved. //Hypokalemia. Potassium 2.9. Replace and monitor. = Resolved after replacement //Hypertension. Blood pressures in the 150s today, improving. Will start back on home medications as warranted. Continue to monitor. = 01/05 blood pressure is improved today. = 12/08 blood pressure improved current regimen. Continue to monitor. //Renal Stone: CT Abd/Pelvis w/ 2mm left ureteral calculus w/ moderate hydronephrosis and hydroureter, images reviewed. Dr. Garcia consulted, recommended Flomax, no intervention as stone likely to pass on its own. Pt has upcoming bobby w/ Urology at the [place] on 01/11/18, follow up w/ Urology as scheduled. Analgesics/antiemetics as needed. IVF for hydration. = No intervention at this time. Appreciate urology assistance. Will need to follow-up with urology as outpatient. //Thrombocytopenia: Platelets 110, no previous labs for comparison, reports h/ o long-standing hematuria, possibly due to thrombocytopenia, recommend outpatient follow up, monitor for bleeding, repeat labs in am. = Follow-up repeat CBC. Platelets stable. No signs of bleeding. = 01/06. Platelets 143. No signs of bleeding. //DVT Prophylaxis: SCD/Teds Discharge Planning: Treatment for sepsis. = Still with hypoxia. 01/08. With nausea vomiting. Continue to monitor. PT recommends home with home health.
[2018-01-08] MEDS: buPROPion 75 MG Tablet PO SCH (10:10)
[2018-01-08] MEDS: amLODIPine 10 MG Tablet PO SCH (10:10)
[2018-01-08] MEDS: Pantoprazole Inj 40 MG Vial IV.PUSH SCH ×2 (10:10→20:21)
[2018-01-08] MEDS: Sertraline 100 MG Tablet PO SCH (10:10)
[2018-01-08] MEDS: hydrALAZINE 25 MG Tablet PO SCH ×3 (10:10→18:03)
[2018-01-08] MEDS: Lisinopril 20 MG Tablet PO SCH (10:11)
[2018-01-08] MEDS: Sodium Chloride 0.9% 2 ML Flush BID IV.FLUSH SCH ×2 (10:11→20:20)
[2018-01-08] MEDS: levoFLOXacin 750 MG Tablet PO SCH (13:00)
[2018-01-08] MEDS: traZODone 50 MG Tablet PO SCH (20:20)
[2018-01-08] MEDS: Gabapentin 300 MG Capsule PO SCH (20:20)
[2018-01-09] MEDS: Piperacil/Tazo 4.5 GM Premix 4.5 GM/100 ML BAG IV.SIG SCH ×4 (03:33→20:36)
[2018-01-09 06:03] LABS: Baso % (Auto) 0.3 % (0.0-2.0); Eos # (Auto) 0.2 th/mm3 (0.0-0.4); Eos % (Auto) 3.2 % (0.0-4.0); Hematocrit 36.2 % (39.0-51.0); Hemoglobin 12.3 gm/dL (13.0-17.0); Lymph # (Auto) 0.4 th/mm3 (1.0-4.8); Lymph % (Auto) 7.7 % (9.0-44.0); Mean Corpuscular HGB Conc 33.9 % (32.0-36.0); Mean Corpuscular Hemoglobin 29.3 pg (27.0-34.0); Mean Corpuscular Volume 86.4 fL (80.0-100.0); Mean Platelet Volume 7.8 fL (7.0-11.0); Mono # (Auto) 0.4 th/mm3 (0.0-0.9); Neut # (Auto) 4.5 th/mm3 (1.8-7.7); Neut % (Auto) 80.8 % (16.0-70.0); Platelet Count 211 th/mm3 (150-450); Red Blood Count 4.19 mil/mm3 (4.50-5.90); Red Cell Distribution Width 14.5 % (11.6-17.2); White Blood Count 5.6 th/mm3 (4.0-11.0)
[2018-01-09 06:25] LABS: Albumin 2.2 g/dL (3.4-5.0); Calcium 8.2 mg/dL (8.5-10.1); Carbon Dioxide 28.2 meq/L (21.0-32.0); Potassium 3.2 meq/L (3.5-5.1)
[2018-01-09 06:26] LABS: Phosphorus 2.9 mg/dL (2.5-4.9)
--- NOTE | 2018-01-09 08:53 | P.PNIM ---
Subjective Interval history: Patient says he is feeling better. Is oriented to year and month Physical Exam Vital signs: Vital Signs 01/08/18 09:53 01/08/18 12:00 01/08/18 16:00 Temperature 98.1 F 98.2 F Pulse Rate 67 67 66 Respiratory Rate 16 18 18 Blood Pressure 103/51 L 128/51 L Pulse Oximetry 95 94 L 93 L 01/08/18 16:52 01/08/18 19:00 01/08/18 20:00 Temperature 97.8 F Pulse Rate 78 71 67 Respiratory Rate 20 17 Blood Pressure 109/59 L Pulse Oximetry 97 01/09/18 00:00 01/09/18 04:00 Temperature 97.6 F 98.5 F Pulse Rate 58 L 72 Respiratory Rate 17 17 Blood Pressure 112/55 L 125/61 Pulse Oximetry 95 93 L Intake & Output 01/08/18 01/09/18 01/09/18 18:59 06:59 18:59 Intake Total 760 / 760 440 / 440 Output Total 950 / 950 850 / 850 Balance -190 / -190 -410 / -410 Weight 75.9 kg Intake: IV 200 / 200 200 / 200 Zosyn 4.5 GM Premix 4.5 gm In 200 / 200 200 / 200 100 ml @ 200 mls/hr IV.SIG Q6H [facility] Rx#:[id number] Oral 560 / 560 240 / 240 Output: Urine 850 / 850 Urine Amount (Catheter) 950 / 950 Condom 950 / 950 Other: Date of Last Bowel Movement 01/06/18 01/08/18 # Bowel Movements 0 Narrative: GENERAL: Patient sitting up in bed. Appears comfortable. Alert and oriented x3. On 2 L O2. SKIN: Warm and dry. HEAD: Normocephalic. EYES: No scleral icterus. No injection or drainage. NECK: Supple, trachea midline. No JVD. CARDIOVASCULAR: Regular rate and rhythm without murmurs, gallops, or rubs. RESPIRATORY: Breath sounds equal bilaterally. No accessory muscle use. GASTROINTESTINAL: Abdomen soft, non-tender, nondistended. No rebound or guarding. MUSCULOSKELETAL: No cyanosis, or edema. BACK: Nontender without obvious deformity. No CVA tenderness. - Urinary Catheter Management Condom Cath placed during this visit: no Reason for continuing: Not indwelling catheter Results - Labs CBC & Chem 7: 01/09/18 05:14 01/09/18 05:14 Laboratory Results - last 24 hr 01/09/18 01/09/18 05:14 05:14 WBC 5.6 RBC 4.19 L Hgb 12.3 L Hct 36.2 L MCV 86.4 MCH 29.3 MCHC 33.9 RDW 14.5 Plt Count 211 MPV 7.8 Neut % (Auto) 80.8 H Lymph % (Auto) 7.7 L [place] % (Auto) 8.0 Eos % (Auto) 3.2 Baso % (Auto) 0.3 Neut # (Auto) 4.5 Lymph # (Auto) 0.4 L [place] # (Auto) 0.4 Eos # (Auto) 0.2 Baso # (Auto) 0.0 WBC Differential . Differential Comment Auto diff final Sodium 138 Potassium 3.2 L Chloride 99 Carbon Dioxide 28.2 Anion Gap 11 BUN 14 Creatinine 1.02 Estimated GFR 72 L Random Glucose 106 Calcium 8.2 L Phosphorus 2.9 Magnesium 2.0 Albumin 2.2 L Microbiology 01/04/18 11:22 Blood - Peripheral Aerobic Blood Culture - Preliminary No growth in 4 days 01/04/18 11:22 Blood - Peripheral Anaerobic Blood Culture - Preliminary No growth in 4 days 01/04/18 11:34 Blood - Peripheral Aerobic Blood Culture - Preliminary No growth in 4 days 01/04/18 11:34 Blood - Peripheral Anaerobic Blood Culture - Preliminary No growth in 4 days Assessment and Plan - Assessment (1) Acute pyelonephritis Code(s): N10 - Acute pyelonephritis Status: Acute (2) Left nephrolithiasis Code(s): N20.0 - Calculus of kidney Status: Acute (3) Sepsis Code(s): A41.9 - Sepsis, unspecified organism Status: Acute (4) UTI (urinary tract infection) Code(s): N39.0 - Urinary tract infection, site not specified Status: Acute (5) Renal stone Code(s): N20.0 - Calculus of kidney Status: Acute (6) Thrombocytopenia Code(s): D69.6 - Thrombocytopenia, unspecified Status: Acute - Plan //Complicated UTI: //Sepsis = 01/02 U/a w/ UTI, +fever 102.2, continue w/ IV Abx, follow up cultures, IVF for hydration, monitor I/O. = 01/02. Patient with rigors. Heart rate 104, elevated temperature of 100.0. Fever 102 last night. Suspected sepsis. Will order stat labs. Switch antibiotics from ceftriaxone which patient has not received yet to Zosyn. = 01/03. Shaking and chills has resolved. Proteus pansensitive. Will switch to by mouth Levaquin. Patient appears to be very weak will await physical therapy recommendations. Appreciate assistance. Will need to follow-up with urology as outpatient = 01/04. Repeat fever. Chest x-ray with bilateral infiltrates. BNP mildly elevated in the 400s. Recent history has dysphasia. Will consult GI, swallow evaluation. = 01/05. Aspiration workup so far is negative. Pending official speech evaluation. Continue IV antibiotics as per infectious disease hopefully can go home in the next few days. = 01/06. Still with low-grade fevers 100.1 today. With vague left lower quadrant abdominal pain could be left-sided hydronephrosis. Notified infectious disease. Will recheck urinalysis and urine culture. = 01/07. No fevers today. Still with hypoxia. Will consult pulmonary. Persistent infiltrates on chest x-ray. = 01/08. Continues without fevers. = 01/09. Improving oxygenation. Will check home O2 eval //Nausea vomiting 01/08. Patient with episode of bilious vomiting. Likely secondary to hypoxia, walking without oxygen. Expect to improve. = Times a day. No further episodes of vomiting. //Hypoxemic respiratory failure. Oxygen as needed. Duo nebs scheduled and as needed. Incentive spirometry. Continues on treatment for aspiration pneumonia. = 01/08. Appears that oxygenation is improving, requiring 3 L upon sitting up in chair this morning. //Dysphasia. Status post EGD, barium swallow without obvious cause of dysphasia. = No swallowing abnormalities seen by speech therapy. EGD negative. No neurologic symptoms. Nonfocal. //Peptic ulcer EGD performed on 01/05 with peptic ulcer. Will continue on PPI. Appreciate GI assistance. //Diastolic CHF exacerbation. //pulmonary edema on chest x-ray 01/04. BNP was elevated in the 400s. =Echocardiogram preserved ejection fraction normal. Moderate tricuspid regurgitation. Likely secondary to iatrogenic IV fluids. Will monitor fluid status. = BMP in the 100s now. Improved. //Hypokalemia. Potassium 2.9. Replace and monitor. = 01/09 potassium 3.2. Replaced again //Hypertension. Blood pressures in the 150s today, improving. Will start back on home medications as warranted. Continue to monitor. = 01/05 blood pressure is improved today. = 01/09 blood pressure acceptable. Continue current regimen. //Renal Stone: CT Abd/Pelvis w/ 2mm left ureteral calculus w/ moderate hydronephrosis and hydroureter, images reviewed. Dr. Garcia consulted, recommended Flomax, no intervention as stone likely to pass on its own. Pt has upcoming bobby w/ Urology at the [place] on 01/11/18, follow up w/ Urology as scheduled. Analgesics/antiemetics as needed. IVF for hydration. = No intervention at this time. Appreciate urology assistance. Will need to follow-up with urology as outpatient. //Thrombocytopenia: Platelets 110, no previous labs for comparison, reports h/ o long-standing hematuria, possibly due to thrombocytopenia, recommend outpatient follow up, monitor for bleeding, repeat labs in am. = Follow-up repeat CBC. Platelets stable. No signs of bleeding. = 01/06. Platelets 143. No signs of bleeding. //DVT Prophylaxis: SCD/Teds Discharge Planning: =Home O2 eval =We will need antibiotics to complete treatment course for aspiration pneumonia = Will need PPI for treatment of gastric ulcer = We will need blood pressure meds for diastolic CHF 01/08. With nausea vomiting. Continue to monitor. PT recommends home with home health. == Hopefully discharge home with home health tomorrow.
--- NOTE | 2018-01-09 08:56 | XR ---
EXAM DATE: 01/09/2018 8:00 AM EDT AGE/SEX: 72 years / Male INDICATIONS: Shortness of breath. CLINICAL DATA: This is the patient's subsequent encounter. Patient reports that signs and symptoms h ave been present for 1 week and indicates a pain score of 0/10. MEDICAL/SURGICAL HISTORY: Hypertension. None. COMPARISON: . FINDINGS: A single AP view of the chest demonstrates slight improvement of right upper lobe and left perihilar infiltrates. Heart in the upper limits of normal size. The cardiomediastinal contours are unremarkab le. Osseous structures are intact. CONCLUSION: Slight improvement of bilateral pulmonary opacities/infiltrates. Electronically signed by: Nato Magaña MD 01/09/2018 8:55 AM EDT
[2018-01-09] MEDS: Pantoprazole Inj 40 MG Vial IV.PUSH SCH ×2 (09:28→20:36)
[2018-01-09] MEDS: hydrALAZINE 25 MG Tablet PO SCH ×3 (09:31→17:46)
[2018-01-09] MEDS: Sertraline 100 MG Tablet PO SCH (09:31)
[2018-01-09] MEDS: buPROPion 75 MG Tablet PO SCH (09:31)
[2018-01-09] MEDS: amLODIPine 10 MG Tablet PO SCH (09:31)
[2018-01-09] MEDS: Sodium Chloride 0.9% 2 ML Flush BID IV.FLUSH SCH ×2 (09:32→20:37)
[2018-01-09] MEDS: Lisinopril 20 MG Tablet PO SCH (09:32)
[2018-01-09] MEDS: levoFLOXacin 750 MG Tablet PO SCH (12:21)
[2018-01-09] MEDS: traZODone 50 MG Tablet PO SCH (20:36)
[2018-01-09] MEDS: Gabapentin 300 MG Capsule PO SCH (20:36)
[2018-01-10] MEDS: Piperacil/Tazo 4.5 GM Premix 4.5 GM/100 ML BAG IV.SIG SCH ×2 (03:30→09:25)
[2018-01-10] MEDS: Sertraline 100 MG Tablet PO SCH (09:25)
[2018-01-10] MEDS: Pantoprazole Inj 40 MG Vial IV.PUSH SCH (09:25)
[2018-01-10] MEDS: amLODIPine 10 MG Tablet PO SCH (09:26)
[2018-01-10] MEDS: Lisinopril 20 MG Tablet PO SCH (09:26)
[2018-01-10] MEDS: buPROPion 75 MG Tablet PO SCH (09:26)
[2018-01-10] MEDS: Sodium Chloride 0.9% 2 ML Flush BID IV.FLUSH SCH (09:26)
[2018-01-10] MEDS: hydrALAZINE 25 MG Tablet PO SCH (09:26)
[2018-01-10 09:46] VITALS: BP 143/65; RESP 16
--- NOTE | 2018-01-10 11:06 | P.PNIM ---
Subjective Interval history: Patient says he is feeling well. Denies any chest pain or shortness of breath. Denies nausea vomiting. says he appears to be much better and thinks he is ready to go home. Physical Exam Vital signs: Vital Signs 01/09/18 12:00 01/09/18 12:42 01/09/18 16:00 Temperature 97.6 F 97.7 F Pulse Rate 66 75 70 Respiratory Rate 17 18 17 Blood Pressure 113/58 L 122/60 Pulse Oximetry 94 L 92 L Pulse Oximetry [Exertion on Room Air] 87 L Pulse Oximetry [Exertion with Oxygen] 94 L Pulse Oximetry [Resting on Room Air] 91 L Pulse Oximetry [Resting with Oxygen] 98 01/09/18 20:00 01/09/18 20:55 01/10/18 00:00 Temperature 98.1 F 97.9 F Pulse Rate 73 74 70 Respiratory Rate 18 16 15 Blood Pressure 140/63 134/88 Pulse Oximetry 94 L 92 L 98 Pulse Oximetry [Exertion on Room Air] Pulse Oximetry [Exertion with Oxygen] Pulse Oximetry [Resting on Room Air] Pulse Oximetry [Resting with Oxygen] 01/10/18 04:00 01/10/18 08:00 01/10/18 08:16 Temperature 98.5 F 98.1 F Pulse Rate 75 67 Respiratory Rate 14 16 Blood Pressure 130/61 143/65 H Pulse Oximetry 94 L 94 L 92 L Pulse Oximetry [Exertion on Room Air] Pulse Oximetry [Exertion with Oxygen] Pulse Oximetry [Resting on Room Air] Pulse Oximetry [Resting with Oxygen] Intake & Output 01/09/18 01/10/18 01/10/18 18:59 06:59 18:59 Intake Total 680 / 680 680 / 680 Output Total 650 / 650 1550 / 1550 Balance 30 / 30 -870 / -870 Weight 76 kg Intake: IV 200 / 200 200 / 200 Zosyn 4.5 GM Premix 4.5 gm In 200 / 200 200 / 200 100 ml @ 200 mls/hr IV.SIG Q6H [facility] Rx#:[id number] Oral 480 / 480 480 / 480 Output: Urine 650 / 650 Urine Amount (Catheter) 1550 / 1550 Condom 1550 / 1550 Other: # Bowel Movements 0 Narrative: GENERAL: Patient sitting up in bed. Appears comfortable. Alert and oriented x3. Off of oxygen SKIN: Warm and dry. HEAD: Normocephalic. EYES: No scleral icterus. No injection or drainage. NECK: Supple, trachea midline. No JVD. CARDIOVASCULAR: Regular rate and rhythm without murmurs, gallops, or rubs. RESPIRATORY: Breath sounds equal bilaterally. No accessory muscle use. GASTROINTESTINAL: Abdomen soft, non-tender, nondistended. No rebound or guarding. MUSCULOSKELETAL: No cyanosis, or edema. BACK: Nontender without obvious deformity. No CVA tenderness. - Urinary Catheter Management Condom Cath placed during this visit: no Reason for continuing: Not indwelling catheter Results - Labs CBC & Chem 7: 01/09/18 05:14 01/09/18 05:14 Microbiology 01/04/18 11:22 Blood - Peripheral Aerobic Blood Culture - Final No growth in 5 days 01/04/18 11:22 Blood - Peripheral Anaerobic Blood Culture - Final No growth in 5 days 01/04/18 11:34 Blood - Peripheral Aerobic Blood Culture - Final No growth in 5 days 01/04/18 11:34 Blood - Peripheral Anaerobic Blood Culture - Final No growth in 5 days Assessment and Plan - Assessment (1) Acute pyelonephritis Code(s): N10 - Acute pyelonephritis Status: Acute (2) Left nephrolithiasis Code(s): N20.0 - Calculus of kidney Status: Acute (3) Sepsis Code(s): A41.9 - Sepsis, unspecified organism Status: Acute (4) UTI (urinary tract infection) Code(s): N39.0 - Urinary tract infection, site not specified Status: Acute (5) Renal stone Code(s): N20.0 - Calculus of kidney Status: Acute (6) Thrombocytopenia Code(s): D69.6 - Thrombocytopenia, unspecified Status: Acute - Plan //Complicated UTI: //Sepsis = 01/02 U/a w/ UTI, +fever 102.2, continue w/ IV Abx, follow up cultures, IVF for hydration, monitor I/O. = 01/02. Patient with rigors. Heart rate 104, elevated temperature of 100.0. Fever 102 last night. Suspected sepsis. Will order stat labs. Switch antibiotics from ceftriaxone which patient has not received yet to Zosyn. = 01/03. Shaking and chills has resolved. Proteus pansensitive. Will switch to by mouth Levaquin. Patient appears to be very weak will await physical therapy recommendations. Appreciate assistance. Will need to follow-up with urology as outpatient = 01/04. Repeat fever. Chest x-ray with bilateral infiltrates. BNP mildly elevated in the 400s. Recent history has dysphasia. Will consult GI, swallow evaluation. = 01/05. Aspiration workup so far is negative. Pending official speech evaluation. Continue IV antibiotics as per infectious disease hopefully can go home in the next few days. = 01/06. Still with low-grade fevers 100.1 today. With vague left lower quadrant abdominal pain could be left-sided hydronephrosis. Notified infectious disease. Will recheck urinalysis and urine culture. = 01/07. No fevers today. Still with hypoxia. Will consult pulmonary. Persistent infiltrates on chest x-ray. = 01/08. Continues without fevers. = 01/09. Improving oxygenation. Will check home O2 eval = 01/10. Patient did not pass yesterday's home oxygen evaluation. He is off oxygen today however. Will reorder oxygen evaluation. Plan for discharge home today. //Nausea vomiting 01/08. Patient with episode of bilious vomiting. Likely secondary to hypoxia, walking without oxygen. Expect to improve. = Times a day. No further episodes of vomiting. //Hypoxemic respiratory failure. Oxygen as needed. Duo nebs scheduled and as needed. Incentive spirometry. Continues on treatment for aspiration pneumonia. = 01/08. Appears that oxygenation is improving, requiring 3 L upon sitting up in chair this morning. //Dysphasia. Status post EGD, barium swallow without obvious cause of dysphasia. = No swallowing abnormalities seen by speech therapy. EGD negative. No neurologic symptoms. Nonfocal. //Peptic ulcer EGD performed on 01/05 with peptic ulcer. Will continue on PPI. Appreciate GI assistance. //Diastolic CHF exacerbation. //pulmonary edema on chest x-ray 01/04. BNP was elevated in the 400s. =Echocardiogram preserved ejection fraction normal. Moderate tricuspid regurgitation. Likely secondary to iatrogenic IV fluids. Will monitor fluid status. = BMP in the 100s now. Improved. //Hypokalemia. Potassium 2.9. Replace and monitor. = 01/09 potassium 3.2. Replaced again //Hypertension. Blood pressures in the 150s today, improving. Will start back on home medications as warranted. Continue to monitor. = 01/05 blood pressure is improved today. = 01/09 blood pressure acceptable. Continue current regimen. //Renal Stone: CT Abd/Pelvis w/ 2mm left ureteral calculus w/ moderate hydronephrosis and hydroureter, images reviewed. Dr. Garcia consulted, recommended Flomax, no intervention as stone likely to pass on its own. Pt has upcoming bobby w/ Urology at the [place] on 01/11/18, follow up w/ Urology as scheduled. Analgesics/antiemetics as needed. IVF for hydration. = No intervention at this time. Appreciate urology assistance. Will need to follow-up with urology as outpatient. //Thrombocytopenia: Platelets 110, no previous labs for comparison, reports h/ o long-standing hematuria, possibly due to thrombocytopenia, recommend outpatient follow up, monitor for bleeding, repeat labs in am. = Follow-up repeat CBC. Platelets stable. No signs of bleeding. = 01/06. Platelets 143. No signs of bleeding. //DVT Prophylaxis: SCD/Teds Discharge Planning: =Home O2 eval =We will need antibiotics to complete treatment course for aspiration pneumonia = Will need PPI for treatment of gastric ulcer = We will need blood pressure meds for diastolic CHF = Discharge home with home health today.
--- NOTE | 2018-01-10 11:06 | P.DS ---
Date of admission: 01/01/18 19:00 Primary care physician: Julieta Sims MD Brief History from admission: This is a 80-year-old male with a PMH of Prostate CA, HTN and Hyperlipidemia was brought to the ER by EMS for AMS and fever. Family at bedside report pt had fever 101 in addition to intense rigors and episode of confusion. Also reports c/o severe left flank pain, 10/10, non-radiating, associated w/ nausea/ vomiting. Per family, mental status now back to baseline. On arrival, BP 182/ 79, HR 79, O2 sat 95% on RA, Afebrile. CBC unremarkable except for platelets 110, no previous labs for comparison. INR 1.2. Chemistry essentially unremarkable except for K+ 3.2. UA positive for UTI. CT Head negative. CXR negative. CT Abdomen/Pelvis 2 mm distal left ureteral calculus with moderate hydronephrosis and hydroureter. Dr. Garcia consulted by ER physician, recommended Flomax, no intervention as stone likely to pass on its own. S/p Vanc/Zosyn in ER. Family notes pt has had hematuria for "several months", referred [facility], has upcoming appt on 01/11/18. DS: Diagnosis - Discharge Diagnosis (1) Acute pyelonephritis Status: Acute (2) Left nephrolithiasis Status: Acute (3) Sepsis Status: Acute (4) UTI (urinary tract infection) Status: Acute (5) Renal stone Status: Acute (6) Thrombocytopenia Status: Acute DS: Medications - Discharge Medications Prescriptions: amlodipine 10 mg PO DAILY 30 Days #30 tab amoxicillin-pot clavulanate [Augmentin] 1 tab PO BID 10 Days #20 tab clonidine HCl [Catapres] 0.2 mg PO BID 30 Days #60 tab hydralazine 25 mg PO TID 30 Days #90 tab hydrochlorothiazide 25 mg PO DAILY 30 Days #30 tab ipratropium-albuterol 1 amp NEB Q2HR NEB PRN 30 Days ml PRN Reason: Shortness Of Breath/Wheezing ipratropium-albuterol 1 amp NEB TID NEB 30 Days ml lisinopril 40 mg PO DAILY 30 Days #30 tab pantoprazole 40 mg PO DAILY 30 Days #30 tab tamsulosin 0.4 mg PO DAILY 30 Days #30 cap DS: Summary Hospital Course: Patient with left-sided hydronephrosis, stone on CT. Urinalysis positive for Proteus. Urology consulted, recommends follow-up with urology as outpatient. Patient was started on antibiotics treatment of Proteus. Unfortunately however patient presented with continued chills, chest x-ray with bilateral infiltrates , BNP 497, however echocardiogram shows normal ejection fraction. Infiltrates persisted with diuresis. Family reported intermittent difficulty swallowing for the past few months, and speech therapy, gastroenterology were consulted and no acute swelling difficulty was found. Patient underwent EGD which showed gastric ulcer. Patient's hypoxemic respiratory failure. Improved with treatment for aspiration pneumonia. Patient will need to follow gastroenterology, urology, pulmonology as outpatient For problem-based summary from most recent progress note, please see below. //Complicated UTI: //Sepsis = 01/02 U/a w/ UTI, +fever 102.2, continue w/ IV Abx, follow up cultures, IVF for hydration, monitor I/O. = 01/02. Patient with rigors. Heart rate 104, elevated temperature of 100.0. Fever 102 last night. Suspected sepsis. Will order stat labs. Switch antibiotics from ceftriaxone which patient has not received yet to Zosyn. = 01/03. Shaking and chills has resolved. Proteus pansensitive. Will switch to by mouth Levaquin. Patient appears to be very weak will await physical therapy recommendations. Appreciate assistance. Will need to follow-up with urology as outpatient = 01/04. Repeat fever. Chest x-ray with bilateral infiltrates. BNP mildly elevated in the 400s. Recent history has dysphasia. Will consult GI, swallow evaluation. = 01/05. Aspiration workup so far is negative. Pending official speech evaluation. Continue IV antibiotics as per infectious disease hopefully can go home in the next few days. = 01/06. Still with low-grade fevers 100.1 today. With vague left lower quadrant abdominal pain could be left-sided hydronephrosis. Notified infectious disease. Will recheck urinalysis and urine culture. = 01/07. No fevers today. Still with hypoxia. Will consult pulmonary. Persistent infiltrates on chest x-ray. = 01/08. Continues without fevers. = 01/09. Improving oxygenation. Will check home O2 eval = 01/10. Patient did not pass yesterday's home oxygen evaluation. He is off oxygen today however. Will reorder oxygen evaluation. Plan for discharge home today. //Nausea vomiting 01/08. Patient with episode of bilious vomiting. Likely secondary to hypoxia, walking without oxygen. Expect to improve. = Times a day. No further episodes of vomiting. //Hypoxemic respiratory failure. Oxygen as needed. Duo nebs scheduled and as needed. Incentive spirometry. Continues on treatment for aspiration pneumonia. = 01/08. Appears that oxygenation is improving, requiring 3 L upon sitting up in chair this morning. //Dysphasia. Status post EGD, barium swallow without obvious cause of dysphasia. = No swallowing abnormalities seen by speech therapy. EGD negative. No neurologic symptoms. Nonfocal. //Peptic ulcer EGD performed on 01/05 with peptic ulcer. Will continue on PPI. Appreciate GI assistance. //Diastolic CHF exacerbation. //pulmonary edema on chest x-ray 01/04. BNP was elevated in the 400s. =Echocardiogram preserved ejection fraction normal. Moderate tricuspid regurgitation. Likely secondary to iatrogenic IV fluids. Will monitor fluid status. = BMP in the 100s now. Improved. //Hypokalemia. Potassium 2.9. Replace and monitor. = 01/09 potassium 3.2. Replaced again //Hypertension. Blood pressures in the 150s today, improving. Will start back on home medications as warranted. Continue to monitor. = 01/05 blood pressure is improved today. = 01/09 blood pressure acceptable. Continue current regimen. //Renal Stone: CT Abd/Pelvis w/ 2mm left ureteral calculus w/ moderate hydronephrosis and hydroureter, images reviewed. Dr. Garcia consulted, recommended Flomax, no intervention as stone likely to pass on its own. Pt has upcoming bobby w/ [facility]rology [facility] on 01/11/18, follow up w/ Urology as scheduled. Analgesics/antiemetics as needed. IVF for hydration. = No intervention at this time. Appreciate urology assistance. Will need to follow-up with urology as outpatient. //Thrombocytopenia: Platelets 110, no previous labs for comparison, reports h/ o long-standing hematuria, possibly due to thrombocytopenia, recommend outpatient follow up, monitor for bleeding, repeat labs in am. = Follow-up repeat CBC. Platelets stable. No signs of bleeding. = 01/06. Platelets 143. No signs of bleeding. //DVT Prophylaxis: SCD/Teds Discharge Planning: =Home O2 eval =We will need antibiotics to complete treatment course for aspiration pneumonia = Will need PPI for treatment of gastric ulcer = We will need blood pressure meds for diastolic CHF = Discharge home with home health today. - Time Spent with Patient Total time spent providing and/or coordinating discharge services: Greater than 30 minutes - Quality: VTE Deep Vein Thrombosis/Pulmonary Embolism Present on Admission: No Exam Vital signs: Vital Signs 01/09/18 12:00 01/09/18 12:42 01/09/18 16:00 Temperature 97.6 F 97.7 F Pulse Rate 66 75 70 Respiratory Rate 17 18 17 Blood Pressure 113/58 L 122/60 Pulse Oximetry 94 L 92 L Pulse Oximetry [Exertion on Room Air] 87 L Pulse Oximetry [Exertion with Oxygen] 94 L Pulse Oximetry [Resting on Room Air] 91 L Pulse Oximetry [Resting with Oxygen] 98 01/09/18 20:00 01/09/18 20:55 01/10/18 00:00 Temperature 98.1 F 97.9 F Pulse Rate 73 74 70 Respiratory Rate 18 16 15 Blood Pressure 140/63 134/88 Pulse Oximetry 94 L 92 L 98 Pulse Oximetry [Exertion on Room Air] Pulse Oximetry [Exertion with Oxygen] Pulse Oximetry [Resting on Room Air] Pulse Oximetry [Resting with Oxygen] 01/10/18 04:00 01/10/18 08:00 01/10/18 08:16 Temperature 98.5 F 98.1 F Pulse Rate 75 67 Respiratory Rate 14 16 Blood Pressure 130/61 143/65 H Pulse Oximetry 94 L 94 L 92 L Pulse Oximetry [Exertion on Room Air] Pulse Oximetry [Exertion with Oxygen] Pulse Oximetry [Resting on Room Air] Pulse Oximetry [Resting with Oxygen] Intake & Output 01/09/18 01/10/18 01/10/18 18:59 06:59 18:59 Intake Total 680 / 680 680 / 680 Output Total 650 / 650 1550 / 1550 Balance -870 / -870 Weight 76 kg Intake: IV 200 / 200 200 / 200 Zosyn 4.5 GM Premix 4.5 gm In 200 / 200 200 / 200 100 ml @ 200 mls/hr IV.SIG Q6H [facility] Rx#:[id number] Oral 480 / 480 480 / 480 Output: Urine 650 / 650 Urine Amount (Catheter) 1550 / 1550 Condom 1550 / 1550 Other: # Bowel Movements 0 Results Procedures completed during hospitalization: egd. please see report - Impressions ITS Impressions Head CT 01/01/18 13:59 CONCLUSION: 1. Negative CT Head non contrast. . Abdomen/Pelvis CT 01/01/18 16:19 CONCLUSION: 1. 2 mm distal left ureteral calculus approximately 1 cm above the ureterovesicular junction with moderate hydronephrosis and hydroureter. 2. There are no renal calculi. Videofluoroscopic Swallow 01/05/18 00:00 CONCLUSION: Negative modified barium swallow. Chest X-Ray 01/09/18 08:00 CONCLUSION: Slight improvement of bilateral pulmonary opacities/infiltrates. Discharge Plan - Discharge Disposition Patient Disposition: /Home Health Service - Discharge Condition Condition: Stable - Discharge Order Discharge Orders: Discharge Order (Routine); Ordered 01/10/18 Ordered By: Rex Schneider - Discharge Details Anticipated Discharge Date: 01/10/18 - Physicians Team Primary Care Provider: Julieta Sims Attending Provider: Rex Schneider Other Providers: Faraz Garcia MD ; Jensen Styles ; Shawnee Dean MD ; Issa Kenny MD ; Dipak Mendez MD
[2018-01-10] MEDS: levoFLOXacin 750 MG Tablet PO SCH (11:51)
[2018-01-10 13:29] VITALS: PULSE 62; TEMP 98.6; O2SAT 98
[2018-01-19] MEDS ORDERED: Acetaminophen 325 MG Tablet PO PRN (18:54)
== END 2018-01-10 13:30 | disposition home health service (06) ==
LOC: NEPC 13:50 → NEDA 19:00 → N04 20:47
PROVIDERS: ADMIT Internal Medicine; ATTEND Internal Medicine

== ENCOUNTER 2018-01-19 14:22 | Observation (INO) ==
--- NOTE | 2018-01-19 15:14 | XR ---
EXAM DATE: 01/19/2018 2:47 PM EDT AGE/SEX: 72 years / Male INDICATIONS: Palpitations CLINICAL DATA: This is the patient's initial encounter. Patient reports that signs and symptoms have been present for 1 day and indicates a pain score of 0/10. MEDICAL/SURGICAL HISTORY: None. None. COMPARISON: [facility] [place], CHEST 1V SINGLE AP, 01/09/2018. . FINDINGS: There is improved aeration in the right upper lobe though persistent mild patchy infiltrate remains. There is linear scarring in the left upper lobe. Cardiomegaly is present. Osseous structures are inta ct. CONCLUSION: Improved aeration right upper lobe. Electronically signed by: Gregorio Neves MD 01/19/2018 3:13 PM EDT
[2018-01-19 15:24] LABS: Baso # (Auto) 0.1 th/mm3 (0.0-0.2); Baso % (Auto) 1.1 % (0.0-2.0); Eos # (Auto) 0.1 th/mm3 (0.0-0.4); Eos % (Auto) 1.5 % (0.0-4.0); Hematocrit 34.2 % (39.0-51.0); Hemoglobin 11.7 gm/dL (13.0-17.0); Lymph # (Auto) 1.6 th/mm3 (1.0-4.8); Lymph % (Auto) 23.9 % (9.0-44.0); Mean Corpuscular HGB Conc 34.4 % (32.0-36.0); Mean Corpuscular Hemoglobin 28.9 pg (27.0-34.0); Mean Corpuscular Volume 84.2 fL (80.0-100.0); Mean Platelet Volume 7.5 fL (7.0-11.0); Mono # (Auto) 0.4 th/mm3 (0.0-0.9); Mono % (Auto) 6.6 % (0.0-8.0); Neut # (Auto) 4.4 th/mm3 (1.8-7.7); Neut % (Auto) 66.9 % (16.0-70.0); Platelet Count 206 th/mm3 (150-450); Red Blood Count 4.05 mil/mm3 (4.50-5.90); Red Cell Distribution Width 13.9 % (11.6-17.2); White Blood Count 6.6 th/mm3 (4.0-11.0)
[2018-01-19 15:37] LABS: Bacteria,Urine Occasional /hpf; Bilirubin,Urine Negative (Negative); Clarity,Urine Clear (Clear); Color,Urine Yellow (Yellw/Straw); Glucose,Urine (UA) Negative (Negative); Hyaline Casts,Urine 14 /lpf (0-3); Leukocyte Esterase,Urine Trace (Negative); Mucus,Urine Few /lpf (Occasional); Nitrite,Urine Negative (Negative); Specific Gravity,Urine 1.011 (1.002-1.035); Squamous Epithelial Cell,Urine <1 /hpf (0-5)
[2018-01-19 15:42] LABS: Albumin 2.8 g/dL (3.4-5.0); Anion Gap 7 meq/L (5-15); Aspartate Aminotransferase 20 U/L (15-37); Blood Urea Nitrogen 19 mg/dL (7-18); Calcium 7.6 mg/dL (8.5-10.1); Carbon Dioxide 25.9 meq/L (21.0-32.0); Chloride 106 meq/L (98-107); Glomerular Filtration Rate 47 mL/min (>89); Glucose,Random 74 mg/dL (74-106); Magnesium 2.3 mg/dL (1.5-2.5); Potassium 3.6 meq/L (3.5-5.1); Sodium 139 meq/L (136-145)
[2018-01-19 15:48] LABS: Alanine Aminotransferase 28 U/L (12-78); Alkaline Phosphatase 84 U/L (45-117); Total Protein 6.1 g/dL (6.4-8.2)
[2018-01-19] MEDS ORDERED: Sod Chloride 0.9% Inj 1,000 ML IV.CONT SCH (16:15)
--- NOTE | 2018-01-19 16:25 | ED ---
HPI General Chief complaint: Recheck/Abnormal Lab/Rx Stated complaint: Low Blood Pressure Time Seen by Provider: 01/19/18 14:45 History of Present Illness HPI narrative: This is a 72-year-old male with a history of hypertension, hyperlipidemia, dementia, COPD, presents today from the ID clinic with dizziness and hypotension. Patient was at the ID clinic for follow-up when he was noted to have a low blood pressure. When EMS arrived, they found his blood pressure to be in the 80s systolic. Patient also had a heart rate in the low 50s. The patient denies any chest pain, chest pressure. He does report weakness and dizziness. The patient is a poor historian secondary to his borderline mild dementia. No other further history could be elicited. Related Data Home Medications Medication Instructions Recorded Confirmed aspirin 81 mg PO DAILY 01/01/18 01/01/18 atorvastatin [Lipitor] 40 mg PO HS 01/01/18 01/01/18 bupropion HCl 75 mg PO DAILY 01/01/18 01/01/18 cyanocobalamin (vitamin B-12) 1,000 mcg PO DAILY 01/01/18 01/01/18 docusate sodium [Colace] 100 mg PO BID 01/01/18 01/01/18 donepezil [Aricept] 5 mg PO HS 01/01/18 01/01/18 ferrous sulfate 648 mg PO 4XW 01/01/18 01/01/18 omega 8-sje-dpx-fish oil [Fish Oil] 2,000 mg PO BID 01/01/18 01/01/18 sertraline [Zoloft] 200 mg PO DAILY 01/01/18 01/01/18 trazodone 150 mg PO HS 01/01/18 01/01/18 baclofen 10 mg PO TID PRN 01/19/18 01/19/18 difluprednate 1 drp OPHTHALMIC (EYE) QID 01/19/18 01/19/18 gabapentin 300 mg PO BID 01/19/18 meloxicam 15 mg PO DAILY 01/19/18 01/19/18 potassium chloride 10 meq PO DAILY 01/19/18 01/19/18 Previous Rx's Medication Instructions Recorded amlodipine 10 mg PO DAILY 30 Days #30 tab 01/10/18 amoxicillin-pot clavulanate 1 tab PO BID 10 Days #20 tab 01/10/18 [Augmentin] clonidine HCl [Catapres] 0.2 mg PO BID 30 Days #60 tab 01/10/18 hydralazine 25 mg PO TID 30 Days #90 tab 01/10/18 hydrochlorothiazide 25 mg PO DAILY 30 Days #30 tab 01/10/18 ipratropium-albuterol 1 amp NEB Q2HR NEB PRN 30 Days ml 01/10/18 ipratropium-albuterol 1 amp NEB TID NEB 30 Days ml 01/10/18 lisinopril 40 mg PO DAILY 30 Days #30 tab 01/10/18 pantoprazole 40 mg PO DAILY 30 Days #30 tab 01/10/18 tamsulosin 0.4 mg PO DAILY 30 Days #30 cap 01/10/18 Allergies Allergy/AdvReac Type Severity Reaction Status Date / Time No Known Allergies Allergy Verified 01/19/18 15:07 Review of Systems ROS: all other systems reviewed are negative Constitutional Denies chills and Denies fever(s) Eyes Reports system reviewed and no additional complaints, except as docu ENT Reports system reviewed and no additional complaints, except as docu Cardiovascular Denies chest pain, Denies dyspnea and Reports slow heart rate Respiratory Denies chest congestion and Denies dyspnea Gastrointestinal Denies abdominal pain, Denies nausea and Denies vomiting Genitourinary Reports system reviewed and no additional complaints, except as docu Musculoskeletal Denies back pain Neurologic Reports dizziness, Denies headache(s) and Reports weakness PMFSH Medical History Medical History Dementia (Acute) Depression (Acute) Insomnia (Acute) Post traumatic stress disorder (PTSD) (Acute) HTN (hypertension) (Acute) High cholesterol (Acute) Surgical History Surgical History H/O shoulder surgery (Acute) History of cataract surgery (Acute) Social History Social History Substance History: No History of Abuse Second Hand Smoke Exposure: No Smoking Status: Former smoker Tobacco Type: Cigarettes How Often Do You Have a Drink Containing Alcohol: Never Recent Travel in [place] within the Last 8 Weeks: No Recent Out of Country Travel within the Last 8 Weeks: No Immunization History Tetanus Immunization: Unsure Exam Narrative Exam Narrative: GENERAL: Well-developed well-nourished male in no acute respiratory distress. SKIN: Focused skin assessment warm/dry. HEAD: Atraumatic. Normocephalic. EYES:No scleral icterus. No injection or drainage. ENT: No nasal bleeding or discharge. Mucous membranes pink and dry. NECK: Trachea midline. No JVD. Supple. CARDIOVASCULAR: Sinus bradycardia with a rate in the low 50s. No murmur appreciated. RESPIRATORY: No accessory muscle use. Clear to auscultation. Breath sounds equal bilaterally. GASTROINTESTINAL: Abdomen soft, non-tender, nondistended. MUSCULOSKELETAL: No obvious deformities. No clubbing. No cyanosis. No edema. NEUROLOGICAL: Awake and mildly confused. No obvious cranial nerve deficits. Motor grossly within normal limits. Normal speech. Course Initial Documented Vital Signs Temperature 98.1 F 01/19/18 14:29 Pulse Rate 58 L 01/19/18 14:29 Respiratory Rate 16 01/19/18 14:29 Blood Pressure 100/52 L 01/19/18 14:29 Pulse Oximetry 94 L 01/19/18 14:29 Last Documented Vital Signs Temperature 98.1 F 01/19/18 14:29 Pulse Rate 51 L 01/19/18 15:36 Respiratory Rate 16 01/19/18 14:29 Blood Pressure 100/55 L 01/19/18 15:36 Pulse Oximetry 94 L 01/19/18 14:29 Medical Decision Making MDM Narrative Medical decision making narrative: 72-year-old male who was discharged from the hospital 10 days ago, [facility]/ weakness. Patient was noted to have a blood pressure in the 80s systolic. He is also bradycardic in the 50s. Concern was that the patient may be taking multiple of the same medications. His brought in a bag of medicines and says the use of the medicines he has been taking which include multiple of the same medicines. He has been given 500 cc fluids. He is currently at 100 cc/h. He also has acute kidney injury compared to his last BUN and creatinine from previously. [facility] the patient to the service under observation. He will have his medications held and then restarted for the appropriate dosages. Medical Screen Exam Complete: Yes Emergency Medical Condition: Yes Differential Diagnosis Differential Diagnosis: Metabolic derangement versus overmedication versus vasovagal syncope Lab Data Result diagrams: 01/19/18 14:45 01/19/18 14:45 Lab Results 01/19/18 01/19/18 01/19/18 Range/Units 14:45 14:45 15:19 WBC 6.6 (4.0-11.0) th/mm3 RBC 4.05 L (4.50-5.90) mil/mm3 Hgb 11.7 L (13.0-17.0) gm/dL Hct 34.2 L (39.0-51.0) % MCV 84.2 (80.0-100.0) fL MCH 28.9 (27.0-34.0) pg MCHC 34.4 (32.0-36.0) % RDW 13.9 (11.6-17.2) % Plt Count 206 (150-450) th/mm3 MPV 7.5 (7.0-11.0) fL Neut % (Auto) 66.9 (16.0-70.0) % Lymph % (Auto) 23.9 (9.0-44.0) % [place] % (Auto) 6.6 (0.0-8.0) % Eos % (Auto) 1.5 (0.0-4.0) % Baso % (Auto) 1.1 (0.0-2.0) % Neut # (Auto) 4.4 (1.8-7.7) th/mm3 Lymph # (Auto) 1.6 (1.0-4.8) th/mm3 [place] # (Auto) 0.4 (0.0-0.9) th/mm3 Eos # (Auto) 0.1 (0.0-0.4) th/mm3 Baso # (Auto) 0.1 (0.0-0.2) th/mm3 WBC Differential . Differential Comment Auto diff final Sodium 139 (136-145) meq/L Potassium 3.6 (3.5-5.1) meq/L Chloride 106 (98-107) meq/L Carbon Dioxide 25.9 (21.0-32.0) meq/L Anion Gap 7 (5-15) meq/L BUN 19 H (7-18) mg/dL Creatinine 1.49 H (0.60-1.30) mg/dL Estimated GFR 47 L (>89) mL/min Random Glucose 74 (74-106) mg/dL Calcium 7.6 L (8.5-10.1) mg/dL Magnesium 2.3 (1.5-2.5) mg/dL Total Bilirubin 0.2 (0.2-1.0) mg/dL AST 20 (15-37) U/L ALT 28 (12-78) U/L Alkaline Phosphatase 84 (45-117) U/L Troponin I Less than 0.02 L (0.02-0.05) ng/mL Total Protein 6.1 L (6.4-8.2) g/dL Albumin 2.8 L (3.4-5.0) g/dL Urine Color Yellow (Yellw/Straw) Urine Clarity Clear (Clear) Urine pH 5.0 (5.0-8.5) Ur Specific Shell 1.011 (1.002-1.035) Urine Protein Negative (Neg-Trace) mg/dL Urine Glucose (UA) Negative (Negative) mg/dL Urine Ketones Negative (Negative) mg/dL Urine Occult Blood Negative (Negative) Urine Nitrate Negative (Negative) Urine Bilirubin Negative (Negative) Urine Urobilinogen Less than 2 (Less than 2) mg/dL Ur Leukocyte Esterase Trace H (Negative) Urine RBC Less than 1 (0-3) /hpf Urine WBC 3 (0-5) /hpf Ur Squamous Epith Cells <1 (0-5) /hpf Urine Bacteria Occasional H (None) /hpf Hyaline Casts 14 (0-3) /lpf Urine Mucus Few H (Occasional) /lpf Micro UA Comment Culture not ind Ur Microscopic Review Not Reportable Urine Culture Comments Culture not ind Imaging Data Radiologist's impression: Chest X-Ray 01/19/18 14:47 CONCLUSION: Improved aeration right upper lobe. Discharge Plan Discharge Disposition Patient Disposition: 30 Still Patient Discharge Details Diagnosis: Hypotension, Acute kidney injury, Bradycardia Physicians Team ED Provider: Brian Harrison Primary Care Provider: Julieta Sims Rxs /Orders / Referrals /Forms Prescriptions: No Action atorvastatin [Lipitor] 80 mg Tablet 40 mg PO HS RF: 0 sertraline [Zoloft] 100 mg Tablet 200 mg PO DAILY RF: 0 cyanocobalamin (vitamin B-12) 1,000 mcg Tablet 1,000 mcg PO DAILY RF: 0 aspirin 81 mg Tablet,Delayed Release (Dr/Ec) 81 mg PO DAILY RF: 0 trazodone 100 mg Tablet 150 mg PO HS RF: 0 bupropion HCl 75 mg Tablet 75 mg PO DAILY RF: 0 docusate sodium [Colace] 100 mg Capsule 100 mg PO BID RF: 0 ferrous sulfate 324 mg (65 mg iron) Tablet,Delayed Release (Dr/Ec) 648 mg PO 4XW RF: 0 omega 5-uwd-oqy-fish oil [Fish Oil] 1,000 mg (120 mg-180 mg) Capsule 2,000 mg PO BID RF: 0 donepezil [Aricept] 5 mg Tablet 5 mg PO HS RF: 0 ipratropium-albuterol 0.5 mg-3 mg(2.5 mg base)/3 mL Solution For Nebulization 1 amp NEB TID NEB 30 Days RF: 0 ipratropium-albuterol 0.5 mg-3 mg(2.5 mg base)/3 mL Solution For Nebulization 1 amp NEB Q2HR NEB PRN (Reason: Shortness Of Breath/Wheezing) 30 Days RF: 0 hydralazine 25 mg Tablet 25 mg PO TID 30 Days Qty: 90 RF: 0 tamsulosin 0.4 mg Capsule 0.4 mg PO DAILY 30 Days Qty: 30 RF: 0 pantoprazole 40 mg Tablet,Delayed Release (Dr/Ec) 40 mg PO DAILY 30 Days Qty: 30 RF: 0 amoxicillin-pot clavulanate [Augmentin] 875-125 mg Tablet 1 tab PO BID 10 Days Qty: 20 RF: 0 clonidine HCl [Catapres] 0.2 mg Tablet 0.2 mg PO BID 30 Days Qty: 60 RF: 0 amlodipine 10 mg Tablet 10 mg PO DAILY 30 Days Qty: 30 RF: 0 hydrochlorothiazide 25 mg Tablet 25 mg PO DAILY 30 Days Qty: 30 RF: 0 lisinopril 40 mg Tablet 40 mg PO DAILY 30 Days Qty: 30 RF: 0 potassium chloride 10 mEq Capsule, Extended Release 10 meq PO DAILY RF: 0 gabapentin 300 mg capsule 300 mg PO BID RF: 0 difluprednate 0.05 % Drops 1 drp OPHTHALMIC (EYE) QID RF: 0 meloxicam 15 mg Tablet 15 mg PO DAILY RF: 0 baclofen 10 mg Tablet 10 mg PO TID PRN (Reason: Pain) RF: 0 Discharge Interventions Interventions: Vital Signs Last Done: 01/19/18 15:36 Status ED Status: With Doctor
[2018-01-19] MEDS: Sod Chloride 0.9% Inj 1,000 ML IV.CONT SCH (16:51)
--- NOTE | 2018-01-19 18:15 | P.HP ---
[facility] Illness [facility] Physician: Julieta Sims MD Chief Complaint: Generalized weakness History of Present Illness: Patient is a very pleasant 72-year-old male with history of hypertension, dementia BPH, history of prostate cancer status post surgery chronic arthritis/ back pain, who complained of generalized weakness and dizziness for the 3 days. Patient denies any melena or hematochezia. Home health care nurse was coming to the house and check his blood pressures and was noted to be low systolic BPs in the 70s. Patient was instructed to go [facility] where he was instructed to come here. And on evaluation - with generalized weakness with low blood pressure. Patient admitted for evaluation. Patient denies any focal weakness no fever no chills. On review of chart patient was recently admitted here January 01 - January 10 for sepsis secondary to UTI. He was also noted to have gastric ulcer/ esophagitis. He completed a course of antibiotics he was sent home on Augmentin. Was discharged on multiple hypertensive medications on hydralazine 25 mg 3 times daily hydrochlorothiazide 25 mg daily Lasix 40 mg daily, iron, Protonix 40 mg twice a day, clonidine 0.2 mg twice a day. I suspect Most likely on discussion with some of the medication were probably doubling up on meds. Discussed with to bring in all his medications bottles tomorrow to sort out. Currently blood pressure 110/69 heart rate of 50 in SR. Patient currently is on IV fluids 70 cc an hour. Admitted overnight for observation. ask to bring in meds for me to review Review of Systems Patient denies any fever chills nausea vomiting no diarrhea no melena no hematochezia, no urinary symptoms no leg swelling. [facility] - History History Provided By: Patient - Medical History Medical History: Medical History (Last Updated 01/19/18 @ 17:02 by Marisela Schwartz) COPD (chronic obstructive pulmonary disease) Dementia Depression HTN (hypertension) High cholesterol Insomnia Post traumatic stress disorder (PTSD) - Surgical History Surgical History: Surgical History (Last Updated 01/19/18 @ 17:02 by Marisela Schwartz) H/O shoulder surgery History of cataract surgery History of penile implant - Tobacco History Second Hand Smoke Exposure: No Tobacco Use In Past 30 Days: No Smoking Status: Former smoker Tobacco Type: Cigarettes - Alcohol History How Often Do You Have a Drink Containing Alcohol: Never - Substance Use History Substance History: No History of Abuse - Travel History Recent Travel in the [place] Within the Last 8 Weeks: No Recent Travel Out of the Country Within the Last 8 Weeks: No - Immunization History Tetanus Immunization: Unsure Medications and Allergies Active Medications: Active Medications Sodium Chloride (Ns Inj) 1,000 mls @ 70 mls/hr IV.CONT .[id number] JULITO Last Infusion: 01/19/18 18:04 Dose: 70 mls/hr Sodium Chloride (Ns Flush) 2 ml IV.FLUSH PRN PRN PRN Reason: FLUSH AFTER USING IV ACCESS Allergies Allergy/AdvReac Type Severity Reaction Status Date / Time No Known Allergies Allergy Verified 01/19/18 15:07 Home Medications Medication Instructions Recorded Confirmed Type aspirin 81 mg PO DAILY 01/01/18 01/01/18 History atorvastatin [Lipitor] 40 mg PO HS 01/01/18 01/01/18 History bupropion HCl 75 mg PO DAILY 01/01/18 01/01/18 History cyanocobalamin (vitamin B-12) 1,000 mcg PO DAILY 01/01/18 01/01/18 History docusate sodium [Colace] 100 mg PO BID 01/01/18 01/01/18 History donepezil [Aricept] 5 mg PO HS 01/01/18 01/01/18 History ferrous sulfate 648 mg PO 4XW 01/01/18 01/01/18 History omega 6-yut-hbv-fish oil [Fish Oil] 2,000 mg PO BID 01/01/18 01/01/18 History sertraline [Zoloft] 200 mg PO DAILY 01/01/18 01/01/18 History trazodone 150 mg PO HS 01/01/18 01/01/18 History difluprednate 1 drp OPHTHALMIC (EYE) QID 01/19/18 01/19/18 History gabapentin 300 mg PO BID 01/19/18 History Exam Vital signs: Vital Signs 01/19/18 14:29 01/19/18 15:36 01/19/18 17:01 Temperature 98.1 F Pulse Rate 58 L 51 L 50 L Respiratory Rate 16 20 Blood Pressure 100/52 L 100/55 L 116/59 L Pulse Oximetry 94 L Intake & Output 10/17/18 10/18/18 10/18/18 18:59 06:59 18:59 Intake Total 405 / 405 Balance 405 / 405 Weight 77.111 kg Intake: IV 165 / 165 NS Inj 1,000 ML @ 70 mls/hr IV. 165 / 165 CONT .[id number] [facility] Rx#:[id number] Oral 240 / 240 Other: Weight On Admission 77.111 kg Narrative: Awake alert oriented x3 not in any form of distress BP 110/69 heart rate of 52 temperature afebrile HEENT exam anicteric sclerae pink palpebral conjunctivae no tonsillopharyngeal congestion Neck supple no JVD no bruit Chest lungs bilateral breath sounds equal no rales no wheezes Regular rhythm heart rate 50 Abdomen is soft nontender with good bowel sounds Extremities good peripheral pulses no calf swelling or tenderness Neuro exam Awake alert oriented x3 speech clear Pupils equally reactive to light, extraocular muscles full range of motion No facial asymmetry Tongue midline, good gag reflex No nuchal rigidity, Motor 5/5 in all extremities Grossly no sensory deficit Gait testing deferred for now Results - Labs CBC & Chem 7: 01/19/18 14:45 01/20/18 07:49 Labs: Laboratory Results - last 24 hr 01/19/18 01/19/18 01/19/18 14:45 14:45 15:19 WBC 6.6 RBC 4.05 L Hgb 11.7 L Hct 34.2 L MCV 84.2 MCH 28.9 MCHC 34.4 RDW 13.9 Plt Count 206 MPV 7.5 Neut % (Auto) 66.9 Lymph % (Auto) 23.9 Harper % (Auto) 6.6 Eos % (Auto) 1.5 Baso % (Auto) 1.1 Neut # (Auto) 4.4 Lymph # (Auto) 1.6 Harper # (Auto) 0.4 Eos # (Auto) 0.1 Baso # (Auto) 0.1 WBC Differential . Differential Comment Auto diff final Sodium 139 Potassium 3.6 Chloride 106 Carbon Dioxide 25.9 Anion Gap 7 BUN 19 H Creatinine 1.49 H Estimated GFR 47 L Random Glucose 74 Calcium 7.6 L Magnesium 2.3 Total Bilirubin 0.2 AST 20 ALT 28 Alkaline Phosphatase 84 Troponin I Less than 0.02 L Total Protein 6.1 L Albumin 2.8 L Urine Color Yellow Urine Clarity Clear Urine pH 5.0 Ur Specific [place] 1.011 Urine Protein Negative Urine Glucose (UA) Negative Urine Ketones Negative Urine Occult Blood Negative Urine Nitrate Negative Urine Bilirubin Negative Urine Urobilinogen Less than 2 Ur Leukocyte Esterase Trace H Urine RBC Less than 1 Urine WBC 3 Ur Squamous Epith Cells <1 Urine Bacteria Occasional H Hyaline Casts 14 Urine Mucus Few H Micro UA Comment Culture not ind Ur Microscopic Review Not Reportable Urine Culture Comments Culture not ind - Imaging Impressions Chest X-Ray 01/19/18 14:47 CONCLUSION: Improved aeration right upper lobe. Caprini VTE Risk Assessment Caprini VTE Risk Assessment: No/Low Risk (score <= 1) Caprini Risk Assessment Model: Point Value = 1 Point Value = 2 Point Value = 3 Point Value = 5 Age 41-60 Minor surgery BMI > 25 kg/m2 Swollen legs Varicose veins or History of unexplained or recurrent spontaneous Oral contraceptives or hormone replacement Sepsis (< 1 month) Serious lung disease, including pneumonia (< 1 month) Abnormal pulmonary function Acute myocardial infarction Congestive heart failure (< 1 month) History of inflammatory bowel disease Medical patient at bed rest Age 61-74 Arthroscopic surgery Major open surgery (> 45 min) Laparoscopic surgery (> 45 min) Malignancy Confined to bed (> 72 hours) Immobilizing plaster cast Central venous access Age >= 75 History of VTE Family history of VTE Factor V Leiden Prothrombin [id number] Lupus anticoagulant Anticardiolipin antibodies Elevated serum homocysteine Heparin-induced thrombocytopenia Other congenital or acquired thrombophilia Stroke (< 1 month) Elective arthroplasty Hip, pelvis, or leg fracture Acute spinal cord injury (< 1 month) Prophylaxis Regimen: Total Risk Factor Score Risk Level Prophylaxis Regimen 0-1 Low Early ambulation 2 Moderate Order ONE of the following: *Sequential Compression Device (SCD) *Heparin 5000 units SQ BID 3-4 Higher Order ONE of the following medications: *Heparin 5000 units SQ TID *Enoxaparin/Lovenox 40 mg SQ daily (WT < 150 kg, CrCl > 30 mL/min) *Enoxaparin/Lovenox 30 mg SQ daily (WT < 150 kg, CrCl > 10-29 mL/min) *Enoxaparin/Lovenox 30 mg SQ BID (WT < 150 kg, CrCl > 30 mL/min) AND/OR *Sequential Compression Device (SCD) 5 or more Highest Order ONE of the following medications: *Heparin 5000 units SQ TID (Preferred with Epidurals) *Enoxaparin/Lovenox 40 mg SQ daily (WT < 150 kg, CrCl > 30 mL/min) *Enoxaparin/Lovenox 30 mg SQ daily (WT < 150 kg, CrCl > 10-29 mL/min) *Enoxaparin/Lovenox 30 mg SQ BID (WT < 150 kg, CrCl > 30 mL/min) AND *Sequential Compression Device (SCD) Assessment and Plan - Plan 72-year-old male presented with Hypotension with dizziness no focal neurologic deficit-etiology likely from overmedication-no signs of infection. History of hypertension. History of diastolic heart failure echo lasts 55% 50-55%-currently not in any form of heart failure-on home O2 2 L nasal cannula -Discussed with to bring in all medications - received 1L bolus in ER -Hold all blood pressure medications-reportedly patient was on amlodipine 10 mg daily, clonidine 0.2 mg twice a day, hydralazine 25 mg 3 times a day, hydrochlorothiazide 25 mg daily, lisinopril 40 mg daily - instruct to bring in bottles - patient started on fluids 70 cc an hour -We will reintroduce medications gradually if needed -probably start with Amlidpine- will not affect kidneys and HR -Restart his aspirin 81 mg daily in am - reviewed previous Jan 01 admission- no NPH on Head CT Bradycardia- 50- sinus - DC clonidine 0.2 mg po bid Acute kidney injury -Creatinine is up to 1.49 from baseline of 1.0, likely doubling up on HCTZ and Lisinopril - we will confirm later -As stated DC all his BP meds for now Started on gentle IV fluids 70 cc an hour Recheck BMP in a.m. History of hyperlipidemia -Continue on atorvastatin. History of BPH/prostate cancer status post prostatectomy - as outpatient on Flomax 0.4 mg daily we will hold for now -[facility] History of chronic arthritis/back pain. -We will DC meloxicam - with Hx of gastritis - tylenol prn for pain History of esophagitis/gastritis - continue on PPI History of dementia. Continue on Aricept 5 mg daily. Recent treatment for UTI/pneumonia. Completed course of Augmentin.- afebrile. no signs of infection. Repeat UA good TEDs/SCDs for DVT prophylaxis If stable- DC in a.m. with home health care service-nursing to check vitals and medications. Case management consult for DC planning ADD: 7 pm brought in all medication bottles 2 separate bottles of the ff meds - Lisinopril 40 mg, amlodipine 10 mg, HCTZ 25 mg daily -patient is confirmed taking double dosage of above medications we will go over all meds again with her before DC arrange for home [facility] nursing visits
[2018-01-19] MEDS ORDERED: FERROUS SULFATE PO SCH (18:30)
[2018-01-19] MEDS ORDERED: Acetaminophen 325 MG Tablet PO PRN (18:56)
--- NOTE | 2018-01-19 19:04 | P.DCO ---
- Physical Therapy Order: Evaluate and treat - Home Health Nursing Order: Medical education, Signs/symptoms of disease process, Oxygen administration education, Medication education-adverse effect, Nursing assessment with vital signs - Scrap Preparer Order: To evaluate: Living conditions/environment, Support services Order: To provide: Community services - Case Management Consult Yes - Certification I have seen patient Kenji Moore on 01/19/18. My clinical findings support the need for the requested home health care services because: Deconditioned with increased weakness, Need for psychosocial assistance, High risk of falls I certify that my clinical findings support that this patient is homebound because: Need for psychosocial assistance
[2018-01-19] MEDS: Gabapentin 300 MG Capsule PO SCH (20:50)
[2018-01-19] MEDS ORDERED: OMEGA DHA EPA FISH OIL PO SCH (21:00)
[2018-01-19] MEDS ORDERED: DIFLUPREDNATE OTHER SCH (21:00)
[2018-01-19 23:38] VITALS: O2SAT 98
[2018-01-20] MEDS: Sod Chloride 0.9% Inj 1,000 ML IV.CONT SCH (06:48)
[2018-01-20 08:21] LABS: Calcium 7.9 mg/dL (8.5-10.1); Carbon Dioxide 30.3 meq/L (21.0-32.0); Potassium 4.4 meq/L (3.5-5.1)
[2018-01-20] MEDS: Gabapentin 300 MG Capsule PO SCH (08:57)
[2018-01-20] MEDS ORDERED: buPROPion 75 MG Tablet PO SCH (09:00)
[2018-01-20] MEDS ORDERED: Sertraline 100 MG Tablet PO SCH (09:00)
--- NOTE | 2018-01-20 11:06 | P.PN ---
Subjective Interval history: Follow-up for hypotension. Patient reports feeling much better today. He denies any lightheadedness or dizziness. He has ambulated to the restroom without difficulty. He wants to go home. Discussed stopping all of his antihypertensives for now. He plans to go to the [facility] immediately after discharge to get a blood pressure machine. He was instructed to restart his amlodipine if his blood pressure is above 140, patient verbalized understanding. Physical Exam Vital signs: Vital Signs 01/19/18 14:29 01/19/18 15:36 01/19/18 17:01 Temperature 98.1 F Pulse Rate 58 L 51 L 50 L Respiratory Rate 16 20 Blood Pressure 100/52 L 100/55 L 116/59 L Pulse Oximetry 94 L 01/19/18 18:17 01/19/18 19:35 01/19/18 23:38 Temperature 97.5 F L 97.5 F L Pulse Rate 52 L 55 L 53 L Respiratory Rate 16 16 14 Blood Pressure 116/58 L 113/54 L 120/58 L Pulse Oximetry 97 97 98 01/20/18 04:00 01/20/18 08:24 Temperature 97.5 F L 98.2 F Pulse Rate 53 L 62 Respiratory Rate 14 20 Blood Pressure 118/58 L 119/58 L Pulse Oximetry 98 Intake & Output 01/19/18 01/20/18 01/20/18 18:59 06:59 18:59 Intake Total 405 / 405 1125 / 1125 Output Total 200 / 200 Balance 405 / 405 1125 / 1125 -200 / -200 Weight 77.111 kg 77.111 kg Intake: IV 165 / 165 885 / 885 NS Inj 1,000 ML @ 70 mls/hr IV. 165 / 165 885 / 885 CONT .[id number] [facility] Rx#:[id number] Oral 240 / 240 240 / 240 Output: Urine 200 / 200 Other: # Voids 1 Weight On Admission 77.111 kg Narrative: GENERAL: Well-nourished, well-developed patient in NAD. SKIN: Warm and dry. No rash. HEENT: Normocephalic. Atraumatic. Pupils equal and round. Mucous membranes pink and moist. NECK: Supple. Trachea midline. CARDIOVASCULAR: Regular rate and rhythm. No murmur appreciated. RESPIRATORY: No accessory muscle use. Clear to auscultation. Breath sounds equal bilaterally. GASTROINTESTINAL: Abdomen soft, non-tender, nondistended. Normoactive bowel sounds x4. MUSCULOSKELETAL: No obvious deformities. Extremities without clubbing, cyanosis , or edema. NEUROLOGICAL: Awake and alert. No obvious cranial nerve deficits. Normal speech. PSYCHIATRIC: Appropriate mood and affect; insight and judgment normal. Results - Labs CBC & Chem 7: 01/19/18 14:45 01/20/18 07:49 Laboratory Results - last 24 hr 01/19/18 01/19/18 01/19/18 14:45 14:45 15:19 WBC 6.6 RBC 4.05 L Hgb 11.7 L Hct 34.2 L MCV 84.2 MCH 28.9 MCHC 34.4 RDW 13.9 Plt Count 206 MPV 7.5 Neut % (Auto) 66.9 Lymph % (Auto) 23.9 [place] % (Auto) 6.6 Eos % (Auto) 1.5 Baso % (Auto) 1.1 Neut # (Auto) 4.4 Lymph # (Auto) 1.6 [place] # (Auto) 0.4 Eos # (Auto) 0.1 Baso # (Auto) 0.1 WBC Differential . Differential Comment Auto diff final Sodium 139 Potassium 3.6 Chloride 106 Carbon Dioxide 25.9 Anion Gap 7 BUN 19 H Creatinine 1.49 H Estimated GFR 47 L Random Glucose 74 Calcium 7.6 L Magnesium 2.3 Total Bilirubin 0.2 AST 20 ALT 28 Alkaline Phosphatase 84 Troponin I Less than 0.02 L Total Protein 6.1 L Albumin 2.8 L Urine Color Yellow Urine Clarity Clear Urine pH 5.0 Ur Specific [place] 1.011 Urine Protein Negative Urine Glucose (UA) Negative Urine Ketones Negative Urine Occult Blood Negative Urine Nitrate Negative Urine Bilirubin Negative Urine Urobilinogen Less than 2 Ur Leukocyte Esterase Trace H Urine RBC Less than 1 Urine WBC 3 Ur Squamous Epith Cells <1 Urine Bacteria Occasional H Hyaline Casts 14 Urine Mucus Few H Micro UA Comment Culture not ind Ur Microscopic Review Not Reportable Urine Culture Comments Culture not ind 01/20/18 07:49 WBC RBC Hgb Hct MCV MCH MCHC RDW Plt Count MPV Neut % (Auto) Lymph % (Auto) [place] % (Auto) Eos % (Auto) Baso % (Auto) Neut # (Auto) Lymph # (Auto) [place] # (Auto) Eos # (Auto) Baso # (Auto) WBC Differential Differential Comment Sodium 141 Potassium 4.4 D Chloride 108 H Carbon Dioxide 30.3 Anion Gap 3 L BUN 17 Creatinine 1.31 H Estimated GFR 54 L Random Glucose 85 Calcium 7.9 L Magnesium Total Bilirubin AST ALT Alkaline Phosphatase Troponin I Total Protein Albumin Urine Color Urine Clarity Urine pH Ur Specific [place] Urine Protein Urine Glucose (UA) Urine Ketones Urine Occult Blood Urine Nitrate Urine Bilirubin Urine Urobilinogen Ur Leukocyte Esterase Urine RBC Urine WBC Ur Squamous Epith Cells Urine Bacteria Hyaline Casts Urine Mucus Micro UA Comment Ur Microscopic Review Urine Culture Comments - Imaging Impressions Chest X-Ray 01/19/18 14:47 CONCLUSION: Improved aeration right upper lobe. Assessment and Plan - Plan Patient is a very pleasant 72-year-old male with history of hypertension, dementia BPH, history of prostate cancer status post surgery chronic arthritis/ back pain, who complained of generalized weakness and dizziness for the 3 days. Home health care nurses found his systolic blood pressure in the 70s. Symptomatic hypotension with dizziness: Secondary to polypharmacy and overmedication. The patient was on multiple antihypertensives including clonidine, hydralazine, HCTZ, amlodipine. -Held all antihypertensives -Given IV fluid hydration -Monitor BP, much improved, systolic BP currently in the 110s-120s -Symptoms resolved -Instructed the patient to obtain blood pressure machine, keep a BP log at home, restart amlodipine if SBP greater than 140, and follow-up at the [facility] as soon as possible -Continue home health care with nursing at discharge Bradycardia: Sinus rhythm. Heart rate in the 50s upon arrival. Most likely secondary to overmedication. -Discontinued clonidine -Heart rate much improved in the upper 60s70s on telemetry Acute kidney injury -Creatinine is up to 1.49 from baseline of 1.0, likely doubling up on HCTZ and Lisinopril - we will confirm later -DC all his BP meds for now -Given gentle IV fluids 70 cc an hour -Repeat BMP improving, creatinine 1.3, continue oral hydration after discharge History of hyperlipidemia -Continue on atorvastatin. History of BPH/prostate cancer status post prostatectomy -Continue Flomax -Outpatient follow-up with [facility] History of chronic arthritis/back pain. -We will hold meloxicam for now. - tylenol prn for pain History of esophagitis/gastritis - continue on PPI History of dementia. -Continue on Aricept 5 mg daily. Recent treatment for UTI/pneumonia. -Completed course of Augmentin. -afebrile. no signs of infection. -Repeat UA unremarkable Discharge Planning: Discharge patient to home with home health care Condition on discharge: Stable Heart healthy diet as tolerated Ad Maddi activity Rx written: No new medications Follow-up with primary care physician
[2018-01-20 11:11] VITALS: BP 118/57; PULSE 64; RESP 18; TEMP 98.5
--- NOTE | 2018-01-20 20:55 | ECG ---
Date Performed: 01/19/2018 Time Performed: 14:33:01 PTAGE: 72 years EKG: SINUS BRADYCARDIA MARKED LEFT AXIS DEVIATION LEFT BUNDLE BRANCH BLOCK Since the previous tr acing, no significant change noted ABNORMAL ECG NO PREVIOUS TRACING DOCTOR: Emil Olson Interpretating Date/Time 01/20/2018 20:54:36
== END 2018-01-20 13:49 | disposition home health service (06) ==
LOC: NEPC 14:22 → NEDA 14:22 → NEPFCDU 17:06
PROVIDERS: ADMIT Hospitalist; ATTEND Hospitalist
DX: K25.9 Gastric ulcer, unspecified as acute or chronic, without hemorrhage or perforation; Z79.899 Other long term (current) drug therapy; F43.10 Post-traumatic stress disorder, unspecified; E78.00 Pure hypercholesterolemia, unspecified; Z90.79 Acquired absence of other genital organ(s); K20.9 Esophagitis, unspecified; I95.9 Hypotension, unspecified; F03.90 Unspecified dementia, unspecified severity, without behavioral disturbance, psychotic disturbance, mood disturbance, and anxiety; F32.9 Major depressive disorder, single episode, unspecified; Z85.46 Personal history of malignant neoplasm of prostate; N17.9 Acute kidney failure, unspecified; G47.00 Insomnia, unspecified; R00.1 Bradycardia, unspecified; Z79.82 Long term (current) use of aspirin; N40.0 Benign prostatic hyperplasia without lower urinary tract symptoms; E78.5 Hyperlipidemia, unspecified; F17.210 Nicotine dependence, cigarettes, uncomplicated; J44.9 Chronic obstructive pulmonary disease, unspecified; M19.90 Unspecified osteoarthritis, unspecified site; M54.9 Dorsalgia, unspecified